=== PATIENT | female | born 1935 | race Caucasian/White ===

== ENCOUNTER 2019-02-22 11:56 | Outpatient (CLI) | payer MEDICARE, OTHER, SELFPAY ==
--- NOTE | 2019-02-22 12:12 | XR_ITS ---
WS: [id number] KNEE LEFT TECHNIQUE: 3 views of the left knee CLINICAL INFORMATION: LEFT KNEE PAIN COMPARISON: None. FINDINGS: Normal anatomic alignment. Chondrocalcinosis. Normal patella. No acute fractures. XR/XR knee LT 3V* [id number] IMPRESSION: No acute fractures
== END 2019-02-22 11:57 | disposition home or self-care (01) ==
LOC: RAD 12:04
PROVIDERS: Family Provider Family Medicine; PCP Family Medicine; Visit Provider Family Medicine
DX: M25.562 Pain in left knee (principal)
CPT/HCPCS: 73562

== ENCOUNTER → 2019-03-06 15:15 | Outpatient (BNVA) | payer MEDICARE, OTHER, SELFPAY | PROVIDERS: Family Provider Family Medicine; PCP Family Medicine; Referring Provider Family Medicine; Visit Provider Orthopaedic Surgery | DX: M79.642 Pain in left hand (principal); M79.641 Pain in right hand | CPT/HCPCS: 73130 ==

== ENCOUNTER 2019-03-06 16:24 | Outpatient (CLI) | payer MEDICARE, OTHER, SELFPAY | END 2019-03-06 16:25 | disposition home or self-care (01) | LOC: SPT 16:25 | PROVIDERS: Family Provider Family Medicine; PCP Family Medicine; Visit Provider Orthopaedic Surgery | DX: M18.0 Bilateral primary osteoarthritis of first carpometacarpal joints (principal); M79.642 Pain in left hand; M79.643 Pain in unspecified hand | CPT/HCPCS: 73130; L3924 ==

== ENCOUNTER 2019-07-14 14:06 | Emergency (ER) | payer MEDICARE, OTHER, SELFPAY ==
[2019-07-14 14:18] VITALS: BP 156/94; PULSE 70; RESP 14; TEMP 36.9; O2SAT 99; BMI 30.7
--- NOTE | 2019-07-14 14:30 | ED_ITS ---
HPI - Fall General: Chief Complaint: Fall Stated Complaint: fall/hurts all over Time Seen by Provider: 07/14/19 14:24 History of Present Illness: HPI Narrative: Patient is an 84-year-old female comes to the ED after having a fall. Fall occurred just prior to arrival. Patient is currently on a blood thinner. Patient states she was in her shower and she bent over to unplug the drain in the shower and she fell forward and her head hit the faucet. She denies any loss of consciousness, nausea/vomiting, headache, numbness or weakness to extremities, vision changes. Patient says the right side of her head hit the faucet and that the right side feels a little tender after fall. Denies any bleeding or lacerations on the scalp. She does describe some mild right side cervical muscle pain. She took a Tylenol before arriving to the ED to help with pain. Patient currently does not want any pain medications. She just wanted her head to get checked and scanned to make sure she does not have any intracranial bleeding. Associated symptoms-after fall: Reports headache(s) (Right side of head feels little sore. Does not describe it as a headache.); Denies abdominal pain, chest pain, hematuria or neck pain Review of Systems Const: Denies: fever(s), chills or fatigue Eyes: Denies: change in vision or eye discomfort ENMT: Denies: throat pain, odynophagia, nasal discharge or nasal congestion Card: Denies: chest pain, palpitations, edema, swelling of feet/ankles, dyspnea on exertion or orthopnea Resp: Denies: dyspnea, productive cough or non-productive cough GI: Denies: abdominal pain, nausea, vomiting, diarrhea, constipation or hematochezia : Denies: flank pain, dysuria or hematuria Musc: Denies: neck pain, back pain or extremity swelling Skin/Breast: Denies: rash or new lesions Neuro: Reports: headache(s) (Right side of head feels little sore. Does not describe it as a headache.); Denies: numbness in extremities or weakness in extremities FOR[facility]LY [facility], [facility] ED PFSH: Medical History Episodic atrial fibrillation Essential (primary) hypertension Osteoarthritis of CMC joint of thumb Pulmonary embolism Trigger middle finger of left hand Surgical History History of hysterectomy Hx of cataract surgery Family History Mother Myocardial infarct Cancer Father Heart disease Brother Cancer Social History Smoking and tobacco status: former smoker Quit status (tobacco): has quit using tobacco Year quit tobacco: 1979 Alcohol intake: never Lives independently: Yes Household members: none Current occupational status: retired History of recent travel: No Current gender identity: Female Physical Exam Const: COMMON NORMALS: no acute distress, patient oriented x3 and alert GENERAL APPEARANCE: cooperative and comfortable HENMT: COMMON NORMALS: normocephalic HEAD & SCALP: normocephalic and scalp tenderness (right parietal side had mild tenderness.) MOUTH: Normal oral and palatal mucosa present THROAT: posterior oropharynx normal and uvula midline Eye: COMMON NORMALS: Equal, round and reactive pupils present, EOMs intact bilaterally and normal visual roberto by confrontation PUPIL: Yes Equal, round and reactive pupils present Neck/C-Spine: COMMON NORMALS: supple GENERAL: Yes normal visual inspection Resp: COMMON NORMALS: normal respiratory effort, No retractions, No use of accessory muscles and clear to auscultation bilaterally AUSCULTATION: clear to auscultation bilaterally Cardio: COMMON NORMALS: regular rate, S1 normal heart sound present, S2 normal heart sound present, No gallops present (Cardio), No clicks present (Cardio), No murmurs present (Cardio) and Peripheral pulses 2+ throughout RATE: regular rate RHYTHM: abnormal rhythm irregularly irregular HEART SOUNDS: S1 normal heart sound present and S2 normal heart sound present PERIPHERAL PULSES: Peripheral pulses 2+ throughout GI: COMMON NORMALS: Normal to inspection, nondistended, normoactive bowel sounds present, Soft to palpation, non-tender and no masses PALPATION: Yes Soft to palpation : COMMON NORMALS: Yes no CVA tenderness BLADDER/KIDNEY EXAM: Yes no CVA tenderness Back/Pelvis: COMMON NORMALS: no CVA tenderness Extremity: COMMON NORMALS: normal to inspection and no pedal edema Neuro: COMMON NORMALS: patient oriented x3, CN's II-XII intact bilaterally, mo ves all extremities, no focal motor deficits and no sensory deficits noted SENSORIUM/ORIENTATION: Yes alert SPEECH: speech normal SENSORY EXAM: Yes extremities MOTOR EXAM: 5/5 motor strength present throughout Skin: COMMON NORMALS: no rashes or lesions noted GENERAL SKIN EXAM: no rashes or lesions noted and dry skin Course Vital Signs: Vital signs: Vital Signs Temperature 98.4 F 07/14/19 14:18 Pulse Rate 67 07/14/19 15:32 Respiratory Rate 14 07/14/19 15:32 Blood Pressure 147/52 07/14/19 15:32 Pulse Oximetry 98 07/14/19 15:32 MDM - Fall MDM Narrative: Medical decision making narrative: pt is a 84 y/o female that comes to the ED after having a fall and hitting her head. Pt takes blood thinn er. Neuro exam was normal and no deficits seen. No visible laceration or trauma to head. CT of head showed no acute findings. Pt felt well and had no post fall symptoms. Pt discharged and told to follow up with PCP in 7-10 days. pt understood and agrees with plan. Imaging Data^: CT Head: Attestation: I personally reviewed and interpreted this imaging study as follows: Radiologist's impression: [address] [address] [address] Scan Report Signed Patient: Sana Murrell Unit #: [id number] : 1935 Age/Sex: 84 / F ADM Date: 07/14/19 Loc: ER Room/Bed: Attending Dr: Ordering Provider/Ordering MD: Yasmani Bautista Date of Service: 07/14/19 Procedure(s): CT head wo con* [id number] Accession Number(s): [id number] Report Number: [id number] PROCEDURE INFORMATION: Exam: CT Head Without Contrast Exam date and time: 07/14/2019 2:38 PM Age: 84 years old Clinical indication: Injury or trauma; Fall; Initial encounter; Blunt trauma (contusions or hematomas); Without loss of consciousness; Patient HX: PT on blood thinners fell in shower this am hitting R side of head on faucet denies loc; Additional info: Fell and hit head. Right side of head pain TECHNIQUE: Imaging protocol: Computed tomography of the head without contrast. Radiation optimization: All CT scans at this facility use at least one of these dose optimization techniques: automated exposure control; mA and/or kV adjustment per patient size (includes targeted exams where dose is matched to clinical indication); or iterative reconstruction. COMPARISON: CT head wo con* [id number] 04/09/2016 8:14 PM RADIATION DOSE METRICS: Total DLP: 901.8 mGy-cm FINDINGS: Brain: There is diffuse cerebral atrophy present, consistent with this patient's age. No evidence for large acute ischemic infarction. Please note acute ischemia can be occult by head CT. Ventricles: Normal. No ventriculomegaly. Bones/joints: Unremarkable. No acute fracture. Sinuses: Visualized sinuses are unremarkable. No fluid levels. Mastoid air cells: Visualized mastoid air cells are well aerated. Vasculature: Calcified plaque is present within the carotid siphons. Soft tissues: Unremarkable. CT/CT head wo con* [id number] IMPRESSION: There are senescent changes of the brain as described above. No evidence for large acute ischemic infarction or acute intracranial injury. Radiation Dose CTDIVOL = (mGy): DLP = 901.8 (mGy-cm) Dictated By: Erendira Howard MD Signed By: Erendira Howard MD Signed Date/Time: 07/14/191508 DD/ 06 Discharge Plan Discharge Patient Disposition: Home, Self-Care Clinical Impression: Fall as cause of accidental injury at home as place of occurrence Qualifiers: Encounter type: initial encounter Qualified Code(s): W19.XXXA - Unspecified fall, initial encounter Condition: Stable Prescriptions: No Action metoprolol succinate 100 mg tablet extended release 24 hr 100 mg PO DAILY RF: 0 trazodone 100 mg tablet 100 mg PO DAILY RF: 0 levothyroxine 75 mcg capsule 75 mcg PO DAILY RF: 0 cholecalciferol (vitamin D3) 1,000 unit capsule 1,000 unit PO DAILY RF: 0 ascorbic acid (vitamin C) 1,000 mg tablet 1 gm PO DAILY RF: 0 biotin 10,000 mcg capsule 10,000 mcg PO DAILY RF: 0 triamcinolone acetonide 0.025 % cream 1 applic TOPICAL BID PRN (Reason: UNKNOWN) RF: 0 albuterol sulfate [Ventolin HFA] 90 mcg/actuation HFA aerosol inhaler 2 puff INHALATION Q6H PRN (Reason: Shortness Of Breath) RF: 0 furosemide 80 mg tablet 40 mg PO DAILY RF: 0 potassium chloride 20 mEq tablet extended release 10 meq PO DAILY RF: 0 carisoprodol 350 mg tablet 175 mg PO TID PRN (Reason: muscle pain) RF: 0 docusate sodium [Stool Softener] 100 mg capsule 100 mg PO TID RF: 0 (DME) oxygen-air delivery systems Device See Rx Instructions .ROUTE .MEDSUPPLY Qty: 1 RF: 0 (DME) cmc brace Qty: 2 RF: 0 Xarelto 20 mg tablet 20 mg PO DAILY RF: 0 Discharge Orders: Discharge Order (Routine); Ordered 07/14/19 Ordered By: Yasmani Bautista Referrals: Yasmani Stout MD [Primary Care Provider] - Discharge Diet: Regular Discharge Activity: Resume usual activity Patient Instructions: Fall Prevention (ED) Activity Restrictions/Additional Instructions: Follow-up with your PCP in 7 to 10 days for reevaluation. You can take Tylenol for any pain. Return to ED valuation if symptoms worsen. Discharge Date/Time: 07/14/19 15:34 Coding Level of Care Code ED Concert Manager for Chg Fwd Exam Comprehensive
[2019-07-14 15:32] VITALS: BP 147/52; PULSE 67; RESP 14; O2SAT 98
== END 2019-07-14 15:34 | disposition home or self-care (01) ==
PROVIDERS: Emergency Provider Physician Assistant; Family Provider Family Medicine; PCP Family Medicine
DX: R51 Headache (principal); W18.2XXA Fall in (into) shower or empty bathtub, initial encounter; I48.91 Unspecified atrial fibrillation; I10 Essential (primary) hypertension; Z87.891 Personal history of nicotine dependence
CPT/HCPCS: 12345; 70450; 99281; 99283

== ENCOUNTER → 2019-07-30 15:50 | Outpatient (BNVA) | payer MEDICARE, OTHER, SELFPAY | PROVIDERS: Family Provider Family Medicine; PCP Family Medicine; Visit Provider Internal Medicine Cardiovascular Disease | DX: R06.02 Shortness of breath (principal); I35.0 Nonrheumatic aortic (valve) stenosis; I50.43 Acute on chronic combined systolic (congestive) and diastolic (congestive) heart failure; I48.0 Paroxysmal atrial fibrillation; R07.89 Other chest pain; I27.82 Chronic pulmonary embolism; R60.0 Localized edema; Z87.891 Personal history of nicotine dependence | CPT/HCPCS: 80048; 83880 ==

== ENCOUNTER 2019-08-08 10:12 | Outpatient (CLI) | payer MEDICARE, OTHER, SELFPAY ==
--- NOTE | 2019-08-08 10:26 | XRR_ITS ---
PROCEDURE INFORMATION: Exam: XR Left Foot Complete Exam date and time: 08/08/2019 10:34 AM Age: 84 years old Clinical indication: Pain; Patient HX: Hurt left ankle and foot when she fell. ; Additional info: Foot pain left TECHNIQUE: Imaging protocol: XR Left foot. Views: 3 or more views. COMPARISON: No relevant prior studies available. FINDINGS: Bones/joints: No acute bony injury or malalignment. Soft tissues: No radiopaque foreign body. Calcification at the Achilles tendon attachment site. XR/XR foot LT min 3V* [id number] IMPRESSION: No acute bony injury or malalignment.
--- NOTE | 2019-08-08 10:26 | XRR_ITS ---
PROCEDURE INFORMATION: Exam: XR Left Ankle Exam date and time: 08/08/2019 10:51 AM Age: 84 years old Clinical indication: Pain; Patient HX: Hurt left ankle and foot when she fell; Additional info: Ankle pain left TECHNIQUE: Imaging protocol: XR Left ankle. Views: 3 or more views. COMPARISON: No relevant prior studies available. FINDINGS: Bones/joints: No acute bony injury or malalignment. Soft tissues: No radiopaque foreign body. XR/XR ankle LT min 3V* [id number] IMPRESSION: No acute bony injury or malalignment.
--- NOTE | 2019-08-08 10:26 | XRR_ITS ---
PROCEDURE INFORMATION: Exam: XR Right Tibia and Fibula Exam date and time: 08/08/2019 10:27 AM Age: 84 years old Clinical indication: Lower leg; Patient HX: No known trauma to right leg. C/O pain; Additional info: Leg pain TECHNIQUE: Imaging protocol: XR Right tibia and fibula. Views: 2 views. COMPARISON: CR Knee 3 views, RIGHT* [id number] 01/25/2019 11:34 AM FINDINGS: Bones/joints: No acute bony injury or malalignment. Degenerative change. Soft tissues: No radiopaque foreign body. XR/XR tibia fibula RT 2V [id number] IMPRESSION: No acute bony injury or malalignment.
== END 2019-08-08 10:13 | disposition home or self-care (01) ==
LOC: RAD 10:22
PROVIDERS: PCP Family Medicine; Visit Provider Family Medicine
DX: M79.604 Pain in right leg (principal); M25.572 Pain in left ankle and joints of left foot; M79.672 Pain in left foot
CPT/HCPCS: 73590; 73610; 73630

== ENCOUNTER 2019-08-21 15:24 | Outpatient (CLI) | payer MEDICARE, OTHER, SELFPAY ==
--- NOTE | 2019-08-21 15:42 | USCV_ITS ---
Sana Murrell Age: 84 Gender: F : 1935 Exam Date: 08/21/2019 15:37 Ordering Phys: Josephine Rodgers MD ([email or web address]) Technologist: Aarti Angelo Exam Location: [facility] Indication: AV STENOSIS BP: / HR: 68 Rhythm: Sinus Technical Quality: Adequate MEASUREMENTS (Male / Female) Normal Values 2D ECHO LV Diastolic Diameter PLAX 4.2 cm 4.2 - 5.9 / 3.9 - 5.3 cm LV Systolic Diameter PLAX 1.8 cm LV Chamber Size 3.1 cm IVS Diastolic Thickness 1.1 cm 0.6 - 1.0 / 0.6 - 0.9 cm IVS Systolic Thickness 1.7 cm LVPW Diastolic Thickness 1.6 cm 0.6 - 1.0 / 0.6 - 0.9 cm LVPW Systolic Thickness 2.3 cm RV Chamber Size 3.1 cm LVOT Diameter 2.1 cm LV Ejection Fraction 2D Teich 86.8 % LV Ejection Fraction MOD 2C 56.2 % LV Ejection Fraction 2C AL 56.7 % LA Diameter 4.9 cm LA Width 3.9 cm LA Height 6.1 cm RA Width 3.3 cm RA Height 4.4 cm Aorta at Sinotubular Diameter 2.2 cm M-MODE LV Diastolic Diameter MM 5.2 cm 4.2 - 5.9 / 3.9 - 5.3 cm LV Systolic Diameter MM 4.2 cm LV Ejection Fraction MM Teich 40.1 % IVS Diastolic Thickness MM 0.8 cm 0.6 - 1.0 / 0.6 - 0.9 cm IVS Systolic Thickness MM 0.9 cm LVPW Diastolic Thickness MM 0.7 cm 0.6 - 1.0 / 0.6 - 0.9 cm LVPW Systolic Thickness MM 1.1 cm Aortic Annulus Diameter 2.7 cm LA Ao Ratio MM 1.8 MV E Point Septal Separation 0.3 cm DOPPLER AV Peak Velocity 126.0 cm/s LVOT Peak Velocity 98.0 cm/s AV Area Cont Eq vti 2.7 cm squared AV Area Cont Eq pk 2.6 cm squared MV Area PHT 4.0 cm squared Mitral E to A Ratio 1.9 MV E' Velocity 20.0 cm/s Mitral E to MV E' Ratio 5.9 Mitral E to LV E' Lateral Ratio 5.8 Mitral E to LV E' Septal Ratio 6.0 TR Peak Velocity 244.0 cm/s TR Peak Gradient 23.8 mmHg TR Mean Velocity 274.8 cm/s TR Mean Gradient 34.4 mmHg TR Velocity Time Integral 120.2 cm TV Peak E Velocity 112.0 cm/s Right Atrial Pressure 3.0 mmHg Pulmonary Artery Systolic Pressu 26.8 mmHg PV Peak Velocity 74.0 cm/s RV Acceleration Time 0.2 s RV Ejection Time 0.4 s RV AcT/ET 0.5 FINDINGS Left Ventricle Normal left ventricular size and systolic function, EF 60 %. No significant wall motion normalities Right Ventricle Mildly increased right ventricular size. Normal right ventricular systolic function. Right Atrium Moderately increased right atrial size. Left Atrium Moderately increased left atrial size. Mitral Valve Thickened mitral valve. Mild mitral valve regurgitation. Aortic Valve Thickened aortic valve. Tricuspid Valve [id number] tricuspid valve regurgitation. Pulmonic Valve No gross abnormalities noted Pericardium No pericardial effusion. Aorta Plaque seen in the ascending aorta. CONCLUSIONS Normal left ventricular size and systolic function, EF 60 %. No significant wall motion normalities. Moderate biatrial enlargement. Thickened aortic and mitral valves. [id number] tricuspid valve regurgitation. Mild mitral valve regurgitation. There is no pericardial effusion. There are no intracardiac masses. Compared to study from 10/15/2017, there may not be a significant change Dr Josephine Rodgers MD [facility] (Electronically Signed) Final Date: 21 August 2019 18:53 S
== END 2019-08-21 15:25 | disposition home or self-care (01) ==
LOC: RAD 15:30
PROVIDERS: PCP Family Medicine; Visit Provider Internal Medicine Cardiovascular Disease
DX: I08.3 Combined rheumatic disorders of mitral, aortic and tricuspid valves (principal)
CPT/HCPCS: 93306

== ENCOUNTER → 2019-08-22 10:03 | Outpatient (BNVA) | payer MEDICARE, OTHER, SELFPAY | PROVIDERS: PCP Family Medicine; Visit Provider Internal Medicine Rheumatology | DX: M19.90 Unspecified osteoarthritis, unspecified site (principal); Z79.899 Other long term (current) drug therapy; Z11.59 Encounter for screening for other viral diseases; Z11.1 Encounter for screening for respiratory tuberculosis; I27.82 Chronic pulmonary embolism; I48.0 Paroxysmal atrial fibrillation; I50.32 Chronic diastolic (congestive) heart failure; Z72.89 Other problems related to lifestyle; Z87.891 Personal history of nicotine dependence; Z79.01 Long term (current) use of anticoagulants | CPT/HCPCS: 36415; 80076; 82306; 82565; 85025; 85651; 86140; 86480; 86704; 86803; 87340; 99204 ==

== ENCOUNTER 2019-08-23 14:01 | Outpatient (CLI) | payer MEDICARE, OTHER, SELFPAY ==
--- NOTE | 2019-08-23 14:08 | XR_ITS ---
WS: [id number] HAND LEFT TECHNIQUE: 3 views of the left hand CLINICAL INFORMATION: inflammatory arthritis COMPARISON: None. FINDINGS: Normal metacarpals. Normal MCP joint. Metacarpal heads are normal in appearance. Normal PIP and DIP j oints. No evidence of acute fracture or dislocation. Radiocarpal joint: Normal. Carpal bones: Normal. XR/XR hand LT min 3V* [id number] IMPRESSION: Normal left hand.
--- NOTE | 2019-08-23 14:08 | XR_ITS ---
WS: [id number] FOOT LEFT TECHNIQUE: 3 views of the left foot CLINICAL INFORMATION: inflammatory arthritis COMPARISON: None. FINDINGS: No evidence of acute fracture or dislocation. Normal tarsal metatarsal alignment. Normal calcaneus. N ormal visualized talar dome. No acute findings. XR/XR foot LT min 3V* [id number] IMPRESSION: Normal left foot.
--- NOTE | 2019-08-23 14:08 | XR_ITS ---
WS: [id number] FOOT RIGHT TECHNIQUE: 3 views of the right foot CLINICAL INFORMATION: inflammatory arthritis COMPARISON: None. FINDINGS: No evidence of acute fracture or dislocation. Normal tarsal metatarsal alignment. Normal calcaneus. N ormal visualized talar dome. No acute findings. XR/XR foot RT min 3V* [id number] IMPRESSION: Normal right foot.
--- NOTE | 2019-08-23 14:08 | XR_ITS ---
WS: [id number] HAND RIGHT TECHNIQUE: 3 views of the right hand CLINICAL INFORMATION: inflammatory arthritis COMPARISON: None. FINDINGS: Normal metacarpals. Normal MCP joint. Metacarpal heads are normal in appearance. Normal PIP and DIP j oints. No evidence of acute fracture or dislocation. Radiocarpal joint: Normal. Carpal bones: Normal. XR/XR hand RT min 3V* [id number] IMPRESSION: Normal right hand.
--- NOTE | 2019-08-23 14:08 | XR_ITS ---
WS: [id number] PROCEDURE: XR chest 2V* [id number] CLINICAL INFORMATION: inflammatory arthritis COMPARISON: FINDINGS: Heart: Cardiomegaly. Aortic calcification. Lungs: Moderate chronic emphysematous changes. No acute pulmonary infiltrates. Calcified granuloma ri ght midlung. Subsegmental atelectasis right lower lobe unchanged. Bones: Normal visualized bony structures. XR/XR chest 2V* [id number] IMPRESSION: 1. Stable cardiomegaly. Aortic calcification. 2. Chronic emphysematous changes. No acute pulmonary infiltrates.
== END 2019-08-23 14:02 | disposition home or self-care (01) ==
LOC: RADWPI 14:05
PROVIDERS: Family Provider Family Medicine; PCP Family Medicine; Visit Provider Internal Medicine Rheumatology
DX: M19.90 Unspecified osteoarthritis, unspecified site (principal); I51.7 Cardiomegaly; I70.0 Atherosclerosis of aorta; J43.9 Emphysema, unspecified
CPT/HCPCS: 71046; 73130; 73630

== ENCOUNTER → 2019-09-26 13:27 | Outpatient (BNVA) | payer MEDICARE, OTHER, SELFPAY | PROVIDERS: Family Provider Family Medicine; PCP Family Medicine; Visit Provider Internal Medicine Rheumatology | DX: M06.041 Rheumatoid arthritis without rheumatoid factor, right hand (principal); Z79.899 Other long term (current) drug therapy; M06.042 Rheumatoid arthritis without rheumatoid factor, left hand; M19.90 Unspecified osteoarthritis, unspecified site; J40 Bronchitis, not specified as acute or chronic; Z87.891 Personal history of nicotine dependence; Z79.52 Long term (current) use of systemic steroids | CPT/HCPCS: 99214 ==

== ENCOUNTER → 2019-11-21 09:41 | Outpatient (BNVA) | payer MEDICARE, OTHER, SELFPAY | PROVIDERS: Family Provider Family Medicine; PCP Family Medicine; Visit Provider Internal Medicine Rheumatology | DX: M06.041 Rheumatoid arthritis without rheumatoid factor, right hand (principal); Z79.899 Other long term (current) drug therapy; Z23 Encounter for immunization; M06.042 Rheumatoid arthritis without rheumatoid factor, left hand; M18.9 Osteoarthritis of first carpometacarpal joint, unspecified; M65.332 Trigger finger, left middle finger | CPT/HCPCS: 90471; 90686; 99214 ==

== ENCOUNTER → 2020-03-02 09:54 | Outpatient (BNVA) | payer MEDICARE, OTHER, SELFPAY | PROVIDERS: Family Provider Family Medicine; PCP Family Medicine; Visit Provider Internal Medicine Rheumatology | DX: M06.041 Rheumatoid arthritis without rheumatoid factor, right hand (principal); M06.042 Rheumatoid arthritis without rheumatoid factor, left hand; Z79.899 Other long term (current) drug therapy; M18.9 Osteoarthritis of first carpometacarpal joint, unspecified; Z87.891 Personal history of nicotine dependence; M19.90 Unspecified osteoarthritis, unspecified site; M45.9 Ankylosing spondylitis of unspecified sites in spine | CPT/HCPCS: 36415; 72170; 80076; 82565; 85025; 85651; 86140; 86812; 99214 ==

== ENCOUNTER 2020-03-02 11:32 | Outpatient (CLI) | payer MEDICARE, OTHER, SELFPAY ==
--- NOTE | 2020-03-02 11:37 | XRR_ITS ---
PROCEDURE INFORMATION: Exam: XR Pelvis Exam date and time: 03/02/2020 11:54 AM Age: 85 years old Clinical indication: Condition or disease; Other: Rheumatoid arthritis without rheumatoid factor, right hand; Patient HX: RT hip pain x 2years previous pelvic FX; Additional info: M06.041 - rheumatoid arthritis without rheumatoid factor, right hand TECHNIQUE: Imaging protocol: XR pelvis. Views: 1 or 2 view. COMPARISON: CT Chest/Abdomen/Pelvis w IV* 05/15/2017 5:22 PM FINDINGS: Bones/joints: Osteopenia. Degenerative change, without marginal erosions to suggest an acute erosive arthropathy. Asymmetric right sacroiliac joint sclerosis. Soft tissues: Skin folds. Injection granulomata. Other: Vascular calcification. Prominent stool. XR/XR pelvis 1-2V* [id number] IMPRESSION: Degenerative change, without marginal erosions to suggest an acute erosive arthropathy.
[2020-03-02 12:38] LABS: Basophils % 0.3 %; Eosinophils # 0.1 10^3/uL (0.0-0.8); Eosinophils % 1.3 %; Hematocrit 36.5 % (37.0-47.0); Hemoglobin 11.8 g/dL (11.5-15.3); Lymphocytes # 2.2 10^3/uL (0.8-4.8); Lymphocytes % 30.3 %; Mean Corpuscular HGB Conc 32.3 g/dL (30.0-36.0); Mean Corpuscular Hemoglobin 33.4 pg (28.0-34.0); Mean Corpuscular Volume 103.4 fL (81-99); Mean Platelet Volume 9.8 fL (7.4-10.4); Monocytes # 0.5 10^3/uL (0.2-0.9); Monocytes % 7.3 %; Neutrophils # 4.33 10^3/uL (1.8-7.7); Neutrophils % 60.5 %; Nucleated Red Blood Cells % 0 %; Platelet Count 195 10^3/cmm (130-400); Red Blood Count 3.53 10^6/uL (4.1-5.3); Red Cell Distribution Width 14.6 % (12.1-15.1); White Blood Count 7.2 10^3/uL (4.0-10.0)
[2020-03-02 13:03] LABS: Alanine Aminotransferase 11 U/L (0-33); Albumin Level 4.1 g/dL (3.5-5.2); Alkaline Phosphatase 74 IU/L (35-105); Aspartate Amino Transferase 15 U/L (0-32); C Reactive Protein 1.5 mg/L (0.0-4.9); Globulin 3.1 g/dL (1.3-4.6); Total Bilirubin 0.5 mg/dL (0.15-1.2); Total Protein 7.2 g/dL (6.6-8.7)
[2020-03-02 13:31] LABS: Erythrocyte Sedimentation Rate 29 mm/hr (0-15)
[2020-03-09 20:49] LABS: HLA-B27 NEGATIVE (NEGATIVE)
== END 2020-03-02 11:33 | disposition home or self-care (01) ==
LOC: RAD 11:35
PROVIDERS: Family Provider Family Medicine; PCP Family Medicine; Visit Provider Internal Medicine Rheumatology
DX: M06.041 Rheumatoid arthritis without rheumatoid factor, right hand (principal); M06.042 Rheumatoid arthritis without rheumatoid factor, left hand; M19.90 Unspecified osteoarthritis, unspecified site; Z79.899 Other long term (current) drug therapy
CPT/HCPCS: 36415; 72170; 80076; 82565; 85025; 85651; 86140; 86812

== ENCOUNTER → 2020-05-21 11:40 | Outpatient (BNVA) | payer MEDICARE, OTHER, SELFPAY | PROVIDERS: Family Provider Family Medicine; PCP Family Medicine; Visit Provider Internal Medicine Cardiovascular Disease | DX: I50.33 Acute on chronic diastolic (congestive) heart failure (principal); R06.02 Shortness of breath; R07.89 Other chest pain; I48.0 Paroxysmal atrial fibrillation; I27.82 Chronic pulmonary embolism | CPT/HCPCS: 80048; 83880 ==

== ENCOUNTER 2020-05-29 09:44 | Emergency (ER) | payer MEDICARE, OTHER, SELFPAY ==
[2020-05-29 09:52] VITALS: BP 144/62; PULSE 66; RESP 16; TEMP 36.5; O2SAT 100; BMI 27.3
--- NOTE | 2020-05-29 09:54 | ED_ITS ---
HPI - SOB/Dyspnea General: Chief Complaint: Shortness of Breath/Dyspnea Stated Complaint: SOB, fatigue Time Seen by Provider: 05/29/20 09:51 History of Present Illness: HPI Narrative: 85-year-old female presents to the emergency room with complaint of fatigue shortness of breath with exertion the last several days. Several years ago she had a PE she is getting burning sensation in her chest intermittently she feels like she has a PE again she had been on Xarelto 20 mg daily and recently decrease it to 10 mg daily MD elicited complaint: shortness of breath and pain with inspiration Pertinent past history: congestive heart failure, PE and DVT Onset (ago): day(s) Context: occurred during exertion Timing: constant Severity: moderate Exacerbating factors: exertion, movement and talking Relieving factors: rest Known history of: congestive heart failure, PE and DVT Associated symptoms: Reports chest pain; Deny abdominal pain, chest congestion, cough, diaphoresis, dizziness, extremity pain, fever(s), hemoptysis, lightheadedness, myalgias, nausea, orthopnea, palpitations, paresthesias, polydipsia, polyuria, rash, sense of impending doom, syncope or vomiting Treatment prior to arrival: none Review of Systems Const: Denies: fever(s) or diaphoresis ENMT: Denies: throat pain, ear or mastoid pain, nasal discharge or nasal congestion Card: Reports: chest pain; Denies: palpitations, lightheadedness, syncope or orthopnea Resp: Denies: hemoptysis or chest congestion GI: Denies: abdominal pain, nausea or vomiting : Denies: flank pain, difficulty voiding, dysuria, urinary frequency or urinary urgency Musc: Denies: extremity pain Skin/Breast: Denies: rash or pruritus Neuro: Denies: dizziness Endo: Denies: polyuria or polydipsia PFSH ED PFSH: Medical History Atrial fibrillation Atypical chest pain Bronchitis Chronic diastolic heart failure Chronic diastolic heart failure secondary to coronary artery disease Encounter for screening for other viral diseases Episodic atrial fibrillation Essential (primary) hypertension High risk medication use Immunization counseling Inflammatory arthritis Leg edema Osteoarthritis of both hands Osteoarthritis of CMC joint of thumb Pulmonary embolism Pulmonary embolism Seronegative rheumatoid arthritis of both hands SOB (shortness of breath) Trigger middle finger of left hand Surgical History History of hysterectomy Hx of cataract surgery Family History Mother Myocardial infarct Cancer CAD (coronary artery disease) Father Heart disease CAD (coronary artery disease) Brother Cancer Family/Other Lung disease Denies family history of Diabetes Clotting disorder Dementia Chronic kidney disease (CKD) Suicide Anesthesia complication Bleeding disorder Stroke Social History Smoking and tobacco status: former smoker Quit status (tobacco): has quit using tobacco Year quit tobacco: 1979 Alcohol intake: never Lives independently: Yes Household members: none Current occupational status: retired History of recent travel: No Current gender identity: Female Physical Exam Const: COMMON NORMALS: no acute distress GENERAL APPEARANCE: cooperative and comfortable ORIENTATION/CONSCIOUSNESS: Yes awake, Yes oriented to person, Yes oriented to place and Yes oriented to time HENMT: COMMON NORMALS: normocephalic, atraumatic and hearing grossly normal bilaterally HEAD & SCALP: normocephalic and atraumatic Neck/C-Spine: COMMON NORMALS: no JVD Resp: COMMON NORMALS: normal respiratory effort, No retractions, No use of accessory muscles and clear to auscultation bilaterally AUSCULTATION: clear to auscultation bilaterally Cardio: COMMON NORMALS: no JVD, regular rate, regular rhythm and No murmurs present (Cardio) RATE: regular rate RHYTHM: regular rhythm GI: COMMON NORMALS: Soft to palpation and No hepatosplenomegaly present AUSCULTATION: Yes normoactive bowel sounds PALPATION: Yes Soft to palpation, No Tenderness to palpation present (GI), No Guarding due to palpation present (GI) and Yes No hepatosplenomegaly present Extremity: COMMON NORMALS: normal to inspection, capillary refill normal, no clubbing, cyanosis or edema, no calf tenderness and no pedal edema Neuro: SENSORIUM/ORIENTATION: Yes oriented to person, Yes oriented to place and Yes oriented to time Skin: COMMON NORMALS: no rashes or lesions noted GENERAL SKIN EXAM: no rashes or lesions noted Course Vital Signs: Vital signs: Vital Signs Temperature 97.7 F 05/29/20 09:52 Pulse Rate 59 L 05/29/20 11:57 Respiratory Rate 16 05/29/20 15:14 Blood Pressure 145/57 05/29/20 11:57 Pulse Oximetry 96 05/29/20 12:53 MDM - SOB/Dyspnea 2 MDM Narrative: Medical decision making narrative: Chest x-ray is unremarkable. D-dimer is normal. She is on Xarelto and is still has been taking regular troponins are negative. We gave her some Lasix while she was down here that did help her actually. She was recently started on spironolactone by her office mover. Ambulatory oxygen testing shows the patient does qualify for oxygen. Organ to go ahead and get her started on 3 L/min, to bump up her Lasix to 120 daily continue her Xarelto and recheck with her primary care doctor early next week return if has problems. Lab Data: Labs: Lab Results 05/29/20 05/29/20 05/29/20 Range/Units 10:05 10:05 10:05 WBC 6.6 (4.0-10.0) 10^3/ uL RBC 3.53 L (4.1-5.3) 10^6/u L Hgb 11.5 (11.5-15.3) g/dL Hct 34.6 L (37.0-47.0) % MCV 98.0 (81-99) fL MCH 32.6 (28.0-34.0) pg MCHC 33.2 (30.0-36.0) g/dL RDW 14.0 (12.1-15.1) % Plt Count 234 (130-400) 10^3/c mm MPV 9.8 (7.4-10.4) fL Neut % (Auto) 56.7 % Lymph % (Auto) 31.7 % [place] % (Auto) 9.4 % Eos % (Auto) 1.5 % Baso % (Auto) 0.5 % Neut # (Auto) 3.76 (1.8-7.7) 10^3/u L Lymph # (Auto) 2.1 (0.8-4.8) 10^3/u L [place] # (Auto) 0.6 (0.2-0.9) 10^3/u L Eos # (Auto) 0.1 (0.0-0.8) 10^3/u L Baso # (Auto) 0.0 (0.0-0.1) 10^3/u L Nucleated RBC % (a uto) 0 % Nucleated RBCs # 0.0 /100WBC D-Dimer (0-0.59) ug/mIFE U Sodium 134 L (136-145) mmol/L Potassium 4.2 (3.5-5.1) mmol/L Chloride 98 (98-107) mmol/L Carbon Dioxide 27 (22-29) mmol/L Anion Gap 13.2 (5-19) BUN 15 (8-23) mg/dL Creatinine 0.9 (0.5-0.9) mg/dL GFR Calculation Not Reportable Glucose 94 (65-115) mg/dL Calculated Osmolal ity 279 L (285-295) mOsm/k g Calcium 9.0 (8.5-10.5) mg/dL Total Bilirubin 0.3 (0.15-1.2) mg/dL AST 17 (0-32) U/L ALT 11 (0-33) U/L Alkaline Phosphata se 71 (35-105) IU/L Troponin T Baselin e 9 (0-10) ng/L Troponin T 120 Min [place] (0-10) ng/L Delta Troponin T (0-10) ABS# Total Protein 7.0 (6.6-8.7) g/dL Albumin 4.1 (3.5-5.2) g/dL Globulin 2.9 (1.3-4.6) g/dL 05/29/20 05/29/20 Range/Units 11:23 12:20 WBC (4.0-10.0) 10^3/ uL RBC (4.1-5.3) 10^6/u L Hgb (11.5-15.3) g/dL Hct (37.0-47.0) % MCV (81-99) fL MCH (28.0-34.0) pg MCHC (30.0-36.0) g/dL RDW (12.1-15.1) % Plt Count (130-400) 10^3/c mm MPV (7.4-10.4) fL Neut % (Auto) % Lymph % (Auto) % [place] % (Auto) % Eos % (Auto) % Baso % (Auto) % Neut # (Auto) (1.8-7.7) 10^3/u L Lymph # (Auto) (0.8-4.8) 10^3/u L [place] # (Auto) (0.2-0.9) 10^3/u L Eos # (Auto) (0.0-0.8) 10^3/u L Baso # (Auto) (0.0-0.1) 10^3/u L Nucleated RBC % (a uto) % Nucleated RBCs # /100WBC D-Dimer 0.49 (0-0.59) ug/mIFE U Sodium (136-145) mmol/L Potassium (3.5-5.1) mmol/L Chloride (98-107) mmol/L Carbon Dioxide (22-29) mmol/L Anion Gap (5-19) BUN (8-23) mg/dL Creatinine (0.5-0.9) mg/dL GFR Calculation Glucose (65-115) mg/dL Calculated Osmolal ity (285-295) mOsm/k g Calcium (8.5-10.5) mg/dL Total Bilirubin (0.15-1.2) mg/dL AST (0-32) U/L ALT (0-33) U/L Alkaline Phosphata se (35-105) IU/L Troponin T Baselin e (0-10) ng/L Troponin T 120 Min [place] 7.88 (0-10) ng/L Delta Troponin T -1.12 L (0-10) ABS# Total Protein (6.6-8.7) g/dL Albumin (3.5-5.2) g/dL Globulin (1.3-4.6) g/dL Discharge Plan Discharge Patient Disposition: Home Clinical Impression: Chronic diastolic heart failure secondary to coronary artery disease, History of pulmonary embolism Condition: Stable Prescriptions: Changed furosemide 80 mg tablet 120 mg PO QAM Qty: 0 RF: 0 No Action metoprolol succinate 100 mg tablet extended release 24 hr 100 mg PO QAM RF: 0 trazodone 100 mg tablet 100 mg PO BEDTIME RF: 0 levothyroxine 75 mcg capsule 75 mcg PO QAM RF: 0 biotin 10,000 mcg capsule 10,000 mcg PO QAM RF: 0 acetaminophen [Tylenol Extra Strength] 500 mg tablet 500 mg PO BEDTIME RF: 0 rivaroxaban 10 mg tablet 10 mg PO BEDTIME RF: 0 pantoprazole 40 mg tablet,delayed release (DR/EC) 40 mg PO QAM RF: 0 docusate sodium [Stool Softener] 100 mg capsule 300 mg PO PRN RF: 0 (DME) oxygen-air delivery systems Device See Rx Instructions .ROUTE .MEDSUPPLY Qty: 1 RF: 0 prednisone 10 mg tablet See Rx Instructions PO .COMPLEX PRN (Reason: joint pain) Qty: 30 RF: 1 Vitamin D3 50 mcg (2,000 unit) Capsule 4,000 unit PO QPM RF: 0 Dago Mag Zinc Plus D3 333 mg-133 unit -133 mg-5 mg Tablet 2 tab PO QPM RF: 0 sulfasalazine 500 mg tablet 1,000 mg PO BID RF: 0 potassium chloride 10 mEq tablet extended release 10 meq PO QAM RF: 0 spironolactone 25 mg tablet 25 mg PO QAM RF: 0 folic acid 1 mg tablet 1 mg PO QAM RF: 0 Discharge Orders: Discharge ED (Routine); Ordered 05/29/20 Ordered By: Nelson Bower Other Ambulatory Orders: DME: Oxygen (Order) Location: None Selected Ordered By: Nelson Bower Referrals: Yasmani Stout MD [Primary Care Provider] - Discharge Diet: Usual diet Discharge Activity: Limit activity as instructed Patient Instructions: Opioid Safety Activity Restrictions/Additional Instructions: Qualified for oxygen on testing today in the emergency room. Respiratory therapy will will help make arrangements for that today. We recommend you increase your Lasix 120mg daily for the next 3 days then return to 80 mg daily. Follow-up with Dr. Rodgers or Dr. Stout within the week. 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
[2020-05-29 10:02] VITALS: PULSE 66
--- NOTE | 2020-05-29 10:02 | ECG_ITS ---
[facility] Test Date: 2020-05-29 Pat Name: Sana Murrell Department: Room: Gender: Female [employer]: : 1935 Requested By: Nelson Hilton Order Number: [id number] Lalit MD: Josephine Rodgers M.D. Measurements Intervals [place] Rate: 66 P: ND: QRS: 54 QRSD: 85 T: 30 QT: 406 QTc: 426 Interpretive Statements ATRIAL FIBRILLATION ABNORMAL RHYTHM ECG Compared to ECG 10/22/2017 20:42:02 Sinus rhythm no longer present First degree AV block no longer present Electronically Signed On 05-29-2020 20:58:51 CDT by Josephine Rodgers M.D. [id number]
--- NOTE | 2020-05-29 10:02 | XR_ITS ---
WS: [id number] Portable AP upright chest, 05/29/2020 Clinical Data: dyspnea/cough Comparison: PA and lateral chest, 08/23/2019. Findings: No nodules, masses or effusions are seen. The heart is enlarged. The pulmonary vascularity is not increased. No pneumonia or pneumothorax is seen. The aortic arch shows mild calcification. XR/XR chest 1V portable [id number] Impression: Atherosclerosis and cardiomegaly.
[2020-05-29 10:17] LABS: Basophils % 0.5 %; Eosinophils # 0.1 10^3/uL (0.0-0.8); Eosinophils % 1.5 %; Hematocrit 34.6 % (37.0-47.0); Hemoglobin 11.5 g/dL (11.5-15.3); Lymphocytes # 2.1 10^3/uL (0.8-4.8); Lymphocytes % 31.7 %; Mean Corpuscular HGB Conc 33.2 g/dL (30.0-36.0); Mean Corpuscular Hemoglobin 32.6 pg (28.0-34.0); Mean Platelet Volume 9.8 fL (7.4-10.4); Monocytes # 0.6 10^3/uL (0.2-0.9); Monocytes % 9.4 %; Neutrophils # 3.76 10^3/uL (1.8-7.7); Neutrophils % 56.7 %; Nucleated Red Blood Cells % 0 %; Platelet Count 234 10^3/cmm (130-400); Red Blood Count 3.53 10^6/uL (4.1-5.3); White Blood Count 6.6 10^3/uL (4.0-10.0)
[2020-05-29 10:45] LABS: Alanine Aminotransferase 11 U/L (0-33); Albumin Level 4.1 g/dL (3.5-5.2); Alkaline Phosphatase 71 IU/L (35-105); Anion Gap 13.2 (5-19); Aspartate Amino Transferase 17 U/L (0-32); Blood Urea Nitrogen 15 mg/dL (8-23); Carbon Dioxide 27 mmol/L (22-29); Chloride 98 mmol/L (98-107); Globulin 2.9 g/dL (1.3-4.6); Glucose 94 mg/dL (65-115); Osmolality Calculated 279 mOsm/kg (285-295); Potassium 4.2 mmol/L (3.5-5.1); Sodium 134 mmol/L (136-145); Total Bilirubin 0.3 mg/dL (0.15-1.2)
[2020-05-29 10:48] LABS: Troponin(5th) Baseline 9 ng/L (0-10)
[2020-05-29] MEDS: FUROsemide 10 mg/mL SDV 4mL 40 MG IVP (11:26)
[2020-05-29 11:42] LABS: D Dimer 0.49 ug/mIFEU (0-0.59)
[2020-05-29 11:57] VITALS: BP 145/57; PULSE 59; RESP 19; O2SAT 99
[2020-05-29 12:00] VITALS: RESP 16
[2020-05-29 12:52] LABS: Troponin 5 2HR 7.88 ng/L (0-10)
[2020-05-29 12:53] VITALS: O2SAT 80; O2SAT 94; O2SAT 96
[2020-05-29 12:55] LABS: Troponin 5 2HR Delta -1.12 ABS# (0-10)
--- NOTE | 2020-05-29 14:19 | DCPLANNER ---
marketing communications manager was asked to arrange for home O2 for patient. Patient stated that she currently has services with [email or web address] for oxygen. marketing communications manager faxed patients information and prescription for oxygen to [email or web address] will bring oxygen to the ER for patient.
[2020-05-29 15:14] VITALS: RESP 16
== END 2020-05-29 15:46 | disposition home or self-care (01) ==
PROVIDERS: Emergency Provider Family Medicine; PCP Family Medicine
DX: I25.10 Atherosclerotic heart disease of native coronary artery without angina pectoris (principal); I11.0 Hypertensive heart disease with heart failure; I50.32 Chronic diastolic (congestive) heart failure; Z86.711 Personal history of pulmonary embolism; Z87.891 Personal history of nicotine dependence
CPT/HCPCS: 36415; 71045; 80053; 84484; 85025; 85378; 93005; 96374; 99284; J1940

== ENCOUNTER 2020-06-29 20:00 | Outpatient (CLI) | payer MEDICARE, OTHER, SELFPAY | END 2020-06-29 20:01 | disposition home or self-care (01) | LOC: SLEEP 06-30 08:45 | PROVIDERS: PCP Family Medicine; Visit Provider Family Medicine | DX: G47.33 Obstructive sleep apnea (adult) (pediatric) (principal) | CPT/HCPCS: 95810 ==

== ENCOUNTER → 2020-06-30 09:22 | Outpatient (BNVA) | payer MEDICARE, OTHER, SELFPAY | PROVIDERS: PCP Family Medicine; Visit Provider Internal Medicine Cardiovascular Disease | DX: R07.89 Other chest pain (principal); I48.0 Paroxysmal atrial fibrillation; I50.32 Chronic diastolic (congestive) heart failure; I25.10 Atherosclerotic heart disease of native coronary artery without angina pectoris; R06.02 Shortness of breath; I27.82 Chronic pulmonary embolism; R60.0 Localized edema | CPT/HCPCS: 80048; 83880 ==

== ENCOUNTER → 2020-07-07 09:56 | Outpatient (BNVA) | payer MEDICARE, OTHER, SELFPAY | PROVIDERS: PCP Family Medicine; Visit Provider Internal Medicine Rheumatology | DX: M19.90 Unspecified osteoarthritis, unspecified site (principal); M06.041 Rheumatoid arthritis without rheumatoid factor, right hand; M06.042 Rheumatoid arthritis without rheumatoid factor, left hand; Z79.899 Other long term (current) drug therapy; M79.7 Fibromyalgia; G62.9 Polyneuropathy, unspecified; Z87.891 Personal history of nicotine dependence | CPT/HCPCS: 99214 ==

== ENCOUNTER → 2020-07-09 09:06 | Outpatient (BNVA) | payer MEDICARE, OTHER, SELFPAY | PROVIDERS: PCP Family Medicine; Visit Provider Internal Medicine Cardiovascular Disease | DX: R06.02 Shortness of breath (principal); R07.89 Other chest pain; I50.32 Chronic diastolic (congestive) heart failure; I25.10 Atherosclerotic heart disease of native coronary artery without angina pectoris; I48.0 Paroxysmal atrial fibrillation; R60.0 Localized edema | CPT/HCPCS: 80048; 83880 ==

== ENCOUNTER 2020-07-15 12:31 | Outpatient (CLI) | payer MEDICARE, OTHER, SELFPAY ==
--- NOTE | 2020-07-15 12:43 | USCV_ITS ---
Sana Murrell Age: 85 Gender: F : 1935 Exam Date: 07/15/2020 13:06 Ordering Phys: Yasmani Stout MD Technologist: ADRYAN Exam Location: [facility] [place] Indication: BP: 130 / 65 HR: 78 Rhythm: Sinus Technical Quality: Adequate MEASUREMENTS (Male / Female) Normal Values 2D ECHO LV Diastolic Diameter PLAX 3.7 cm 4.2 - 5.9 / 3.9 - 5.3 cm LV Systolic Diameter PLAX 2.5 cm IVS Diastolic Thickness 1.3 cm 0.6 - 1.0 / 0.6 - 0.9 cm IVS Systolic Thickness 1.6 cm LVPW Diastolic Thickness 1.3 cm 0.6 - 1.0 / 0.6 - 0.9 cm LVPW Systolic Thickness 1.3 cm RV Chamber Size 3.9 cm LVOT Diameter 2.0 cm LV Ejection Fraction 2D Teich 62.2 % LV Ejection Fraction MOD 2C 58.7 % LV Ejection Fraction 2C AL 61.1 % LA Diameter 4.2 cm LA Width 3.9 cm LA Height 6.1 cm RA Width 2.8 cm RA Height 4.8 cm Aorta at Sinotubular Diameter 2.4 cm M-MODE Aortic Annulus Diameter 2.3 cm LA Ao Ratio MM 1.9 DOPPLER AV Peak Velocity 99.0 cm/s LVOT Peak Velocity 90.0 cm/s AV Area Cont Eq vti 2.8 cm squared AV Area Cont Eq pk 2.9 cm squared TR Peak Velocity 379.8 cm/s TR Peak Gradient 57.7 mmHg TR Mean Velocity 280.2 cm/s TR Mean Gradient 39.0 mmHg TR Velocity Time Integral 107.7 cm TV Peak E Velocity 80.0 cm/s Right Atrial Pressure 3.0 mmHg Pulmonary Artery Systolic Pressu 60.7 mmHg PV Peak Velocity 89.0 cm/s RV Acceleration Time 0.1 s RV Ejection Time 0.3 s RV AcT/ET 0.3 FINDINGS Left Ventricle Normal left ventricular size. LV systolic function is normal with EF of 60-65%. No regional wall motion abnormalities. Right Ventricle The right ventricle is normal in size and function. Right Atrium The right atrium is dilated Left Atrium The left atrium is dilated Mitral Valve Structurally normal mitral valve without significant stenosis or prolapse. There is mild mitral regurgitation. Aortic Valve Structurally normal aortic valve without significant sclerosis or stenosis. There is no aortic regurgitation. Tricuspid Valve Structurally normal tricuspid valve without significant stenosi. Mild to moderate tricuspid regurgitation. RVSP is 25-30mmHg Pulmonic Valve Structurally normal pulmonic valve without significant stenosis. There is trace pulmonic regurgitation. Pericardium Normal pericardium without effusion. Aorta Normal ascending aorta dimension. CONCLUSIONS LV systolic function is normal with EF of 60-65% Biatrial enlargement Mild mitral regurgitation Mild to moderate tricuspid regurgitation Trace pulmonic regurgitation Compared to prior echocardiogram from 08/2019, no significant changes are noted Abhi Chu MD (Electronically Signed) Final Date: 21 July 2020 22:55 S
== END 2020-07-15 12:32 | disposition home or self-care (01) ==
LOC: RAD 12:32
PROVIDERS: PCP Family Medicine; Visit Provider Family Medicine
DX: I50.32 Chronic diastolic (congestive) heart failure (principal); I08.1 Rheumatic disorders of both mitral and tricuspid valves
CPT/HCPCS: 93306

== ENCOUNTER → 2020-08-27 15:22 | Outpatient (BNVA) | payer MEDICARE, OTHER, SELFPAY | PROVIDERS: PCP Family Medicine; Visit Provider Internal Medicine Cardiovascular Disease | DX: I50.32 Chronic diastolic (congestive) heart failure (principal); R06.02 Shortness of breath; I50.33 Acute on chronic diastolic (congestive) heart failure; R07.9 Chest pain, unspecified; I25.10 Atherosclerotic heart disease of native coronary artery without angina pectoris; I48.91 Unspecified atrial fibrillation | CPT/HCPCS: 80048; 83880 ==

== ENCOUNTER → 2020-09-10 08:54 | Outpatient (BNVA) | payer MEDICARE, OTHER, SELFPAY | PROVIDERS: PCP Family Medicine; Visit Provider Internal Medicine Cardiovascular Disease | DX: I25.10 Atherosclerotic heart disease of native coronary artery without angina pectoris (principal); I50.32 Chronic diastolic (congestive) heart failure | CPT/HCPCS: 80048; 83880 ==

== ENCOUNTER → 2020-10-12 09:07 | Outpatient (BNVA) | payer MEDICARE, OTHER, SELFPAY | PROVIDERS: PCP Family Medicine; Visit Provider Internal Medicine Cardiovascular Disease | DX: R60.0 Localized edema (principal); I50.32 Chronic diastolic (congestive) heart failure; R06.02 Shortness of breath; R07.89 Other chest pain; M06.041 Rheumatoid arthritis without rheumatoid factor, right hand; M06.042 Rheumatoid arthritis without rheumatoid factor, left hand; I25.10 Atherosclerotic heart disease of native coronary artery without angina pectoris; Z79.899 Other long term (current) drug therapy | CPT/HCPCS: 80048; 80076; 83880; 85025; 86140 ==

== ENCOUNTER → 2020-10-15 14:23 | Outpatient (BNVA) | payer MEDICARE, OTHER, SELFPAY | PROVIDERS: PCP Family Medicine; Visit Provider Internal Medicine Rheumatology | DX: M19.90 Unspecified osteoarthritis, unspecified site (principal); M06.041 Rheumatoid arthritis without rheumatoid factor, right hand; M06.042 Rheumatoid arthritis without rheumatoid factor, left hand; Z79.899 Other long term (current) drug therapy; M79.7 Fibromyalgia; G62.9 Polyneuropathy, unspecified; Z86.711 Personal history of pulmonary embolism; Z87.891 Personal history of nicotine dependence | CPT/HCPCS: 99214 ==

== ENCOUNTER 2020-10-16 12:02 | Outpatient (CLI) | payer MEDICARE, OTHER, SELFPAY ==
--- NOTE | 2020-10-16 12:00 | USCV_ITS ---
Sana Murrell Age: 85 Gender: F : 1935 Exam Date: 10/16/2020 12:19 Ordering Phys: Seng Dailey MD Technologist: Lilli Franco Exam Location: [facility] [place] Indication: edema , leg pain PROCEDURES: The following venous structures were evaluated: common femoral vein, profunda vein, proximal portion of the greater saphenous vein, superficial femoral vein, and the popliteal vein. In addition, the posterior tibial veins were evaluated. FINDINGS: Normal 2-D Doppler and augmentation and compressibility throughout the lower extremity venous structures. Additional imaging through the proximal calf veins also reveals no thrombus. Limited evaluation of the greater saphenous vein is patent with no thrombus.. There is a right lower extremity Berumen's cyst noted. CONCLUSIONS No DVT bilateral lower extremities. Right popliteal fossa Berumen's cyst. Dr. Le Gonzales DO (Electronically Signed) Final Date: 16 October 2020 13:19 S
== END 2020-10-16 12:03 | disposition home or self-care (01) ==
LOC: RAD 12:07
PROVIDERS: PCP Family Medicine; Visit Provider Internal Medicine Rheumatology
DX: M79.669 Pain in unspecified lower leg (principal); Z86.711 Personal history of pulmonary embolism
CPT/HCPCS: 93970

== ENCOUNTER → 2021-08-12 12:05 | Outpatient (BNVA) | payer MEDICARE, OTHER, SELFPAY | PROVIDERS: PCP Family Medicine; Visit Provider Family Medicine | DX: R73.9 Hyperglycemia, unspecified (principal); R07.89 Other chest pain; Z51.81 Encounter for therapeutic drug level monitoring; I50.32 Chronic diastolic (congestive) heart failure; E03.9 Hypothyroidism, unspecified; Z86.711 Personal history of pulmonary embolism | CPT/HCPCS: 80048; 83036; 83880; 84439; 84443; 85025 ==

== ENCOUNTER → 2021-08-26 13:41 | Outpatient (BNVA) | payer MEDICARE, OTHER, SELFPAY | PROVIDERS: PCP Family Medicine; Visit Provider Internal Medicine Cardiovascular Disease | DX: R55 Syncope and collapse (principal); I48.91 Unspecified atrial fibrillation; I49.3 Ventricular premature depolarization | CPT/HCPCS: 93229 ==

== ENCOUNTER 2021-08-31 15:22 | Outpatient (CLI) | payer MEDICARE, OTHER, SELFPAY ==
[2021-08-31 16:19] LABS: Basophils % 0.2 %; Eosinophils # 0.1 10^3/uL (0.0-0.8); Eosinophils % 0.7 %; Hematocrit 38.3 % (37.0-47.0); Hemoglobin 12.4 g/dL (11.5-15.3); Lymphocytes # 1.4 10^3/uL (0.8-4.8); Mean Corpuscular HGB Conc 32.4 g/dL (30.0-36.0); Mean Corpuscular Hemoglobin 31.9 pg (28.0-34.0); Mean Corpuscular Volume 98.5 fl (81-99); Monocytes # 0.4 10^3/uL (0.2-0.9); Monocytes % 5.5 %; Neutrophils # 6.04 10^3/uL (1.8-7.7); Neutrophils % 75.4 %; Nucleated Red Blood Cells % 0 %; Platelet Count 205 10^3/cmm (130-400); Red Blood Count 3.89 10^6/uL (4.1-5.3)
[2021-08-31 16:57] LABS: Alanine Aminotransferase 14 U/L (0-33); Albumin Level 4.3 g/dL (3.5-5.2); Alkaline Phosphatase 62 IU/L (35-105); Anion Gap 13.3 (5-19); Aspartate Amino Transferase 18 U/L (0-32); Blood Urea Nitrogen 16 mg/dL (8-23); Calcium 9.5 mg/dL (8.5-10.5); Carbon Dioxide 29 mmol/L (22-29); Chloride 100 mmol/L (98-107); Globulin 2.6 g/dL (1.3-4.6); Glucose 102 mg/dL (65-115); Osmolality Calculated 287 mOsm/kg (285-295); Potassium 4.3 mmol/L (3.5-5.1); Sodium 138 mmol/L (136-145); Thyroid Stimulating Hormone 0.61 uIU/mL (0.27-4.20); Total Bilirubin 0.3 mg/dL (0.15-1.2); Total Protein 6.9 g/dL (6.6-8.7)
== END 2021-08-31 15:23 | disposition home or self-care (01) ==
LOC: LAB 15:28
PROVIDERS: PCP Family Medicine; Visit Provider Internal Medicine Cardiovascular Disease
DX: I48.0 Paroxysmal atrial fibrillation (principal); I50.32 Chronic diastolic (congestive) heart failure; R06.02 Shortness of breath; R07.89 Other chest pain; I27.82 Chronic pulmonary embolism; R60.0 Localized edema; G47.34 Idiopathic sleep related nonobstructive alveolar hypoventilation; R94.6 Abnormal results of thyroid function studies
CPT/HCPCS: 36415; 80053; 84443; 85025

== ENCOUNTER 2021-09-03 13:59 | Outpatient (CLI) | payer MEDICARE, OTHER, SELFPAY ==
--- NOTE | 2021-09-03 | USCV_ITS ---
Sana Murrell Age: 86 Gender: F : 1935 Exam Date: 09/03/2021 14:22 Ordering Phys: Yasmani Stout MD Technologist: CHARAN [place] [facility] [place]: near syncopal episode, bruit Risk Factors: Previous Vascular Surgery: NONE Right Brachial BP: / Left Brachial BP: / Right Left Velocity (cm/s) Spectral Plaque Velocity (cm/s) Spectral Plaque Syst/Diast Broadening Syst/Diast Broadening 63.90/ 8.80 None None Prox CCA 115.80/ 15.90 None None 76.10/ 11.00 None None Mid CCA 79.70 / 14.40 None None 65.10/ 14.30 None None Distal CCA 91.50 / 13.10 None None 107.90/22.20 Mod Hetro Prox ICA 120.60/ 19.00 Mod Hetro 128.50/19.00 Mod None Mid ICA 115.80/ 20.60 Mod 134.90/23.80 Mod None Distal ICA 103.20/ 20.60 Mod 339.00 Marked Hetro ECA 196.80 Mod Hetro 1.77 ICA/CCA 1.04 Antegrade Vertebral Antegrade 52.40/ 9.50 cm/s 57.10/ 14.30 cm/s Tri Subclavian Tri 123.8 174.6 0 0 FINDINGS Moderate scattered dense plaques bilaterally at the bifurcations and proximal internal carotid arteries Elevated velocity in the right external carotid artery Antegrade flow in the vertebral arteries bilaterally Normal Doppler velocities in the subclavian arteries bilaterally CONCLUSIONS Moderate scattered dense plaques bilaterally at the bifurcations and proximal internal carotid arteries with Doppler features, consistent with less than 50% stenosis. Elevated velocity in the right external carotid artery suggestive of hemodynamically significant stenosis. No significant stenosis in the vertebral and subclavian arteries, based on the above findings. Dr Josephine Rodgers MD [facility] (Electronically Signed) Final Date: 03 September 2021 21:07 S
== END 2021-09-03 14:00 | disposition home or self-care (01) ==
PROVIDERS: PCP Family Medicine; Visit Provider Family Medicine
DX: R09.89 Other specified symptoms and signs involving the circulatory and respiratory systems (principal); R55 Syncope and collapse; I65.23 Occlusion and stenosis of bilateral carotid arteries
CPT/HCPCS: 93880

== ENCOUNTER → 2021-09-16 11:42 | Outpatient (BNVA) | payer MEDICARE, OTHER, SELFPAY | PROVIDERS: PCP Family Medicine; Visit Provider Internal Medicine Cardiovascular Disease | DX: R06.02 Shortness of breath (principal); I11.0 Hypertensive heart disease with heart failure; I50.32 Chronic diastolic (congestive) heart failure; I49.9 Cardiac arrhythmia, unspecified; I48.0 Paroxysmal atrial fibrillation; I25.10 Atherosclerotic heart disease of native coronary artery without angina pectoris; R07.89 Other chest pain; Z87.891 Personal history of nicotine dependence | CPT/HCPCS: 36415; 80048; 83880; 93005; 99214 ==

== ENCOUNTER 2021-09-20 09:45 | Outpatient (CLI) | payer MEDICARE, OTHER, SELFPAY ==
[2021-09-20 10:23] LABS: Basophils % 0.5 %; Eosinophils # 0.1 10^3/uL (0.0-0.8); Eosinophils % 1.7 %; Hematocrit 38.6 % (37.0-47.0); Hemoglobin 12.8 g/dL (11.5-15.3); Lymphocytes # 2.5 10^3/uL (0.8-4.8); Lymphocytes % 30.2 %; Mean Corpuscular HGB Conc 33.2 g/dL (30.0-36.0); Mean Corpuscular Hemoglobin 32.1 pg (28.0-34.0); Mean Corpuscular Volume 96.7 fl (81-99); Mean Platelet Volume 9.8 fL (7.4-10.4); Monocytes # 0.7 10^3/uL (0.2-0.9); Monocytes % 8.4 %; Neutrophils # 4.97 10^3/uL (1.8-7.7); Nucleated Red Blood Cells % 0 %; Platelet Count 243 10^3/cmm (130-400); Red Blood Count 3.99 10^6/uL (4.1-5.3); Red Cell Distribution Width 13.9 % (12.1-15.1); White Blood Count 8.4 10^3/uL (4.0-10.0)
[2021-09-20 11:11] LABS: Alanine Aminotransferase 12 U/L (0-33); Albumin Level 4.2 g/dL (3.5-5.2); Alkaline Phosphatase 61 IU/L (35-105); Anion Gap 12.7 (5-19); Blood Urea Nitrogen 14 mg/dL (8-23); Calcium 9.7 mg/dL (8.5-10.5); Carbon Dioxide 30 mmol/L (22-29); Chloride 99 mmol/L (98-107); Globulin 2.9 g/dL (1.3-4.6); Glucose 98 mg/dL (65-115); Osmolality Calculated 286 mOsm/kg (285-295); Potassium 3.7 mmol/L (3.5-5.1); Sodium 138 mmol/L (136-145); Thyroid Stimulating Hormone 1.37 uIU/mL (0.27-4.20); Total Bilirubin 0.5 mg/dL (0.15-1.2); Total Protein 7.1 g/dL (6.6-8.7)
[2021-09-20 11:20] LABS: Aspartate Amino Transferase 17 U/L (0-32)
== END 2021-09-20 09:46 | disposition home or self-care (01) ==
LOC: LAB 09:49
PROVIDERS: PCP Family Medicine; Visit Provider Internal Medicine Cardiovascular Disease
DX: G47.33 Obstructive sleep apnea (adult) (pediatric) (principal); I48.0 Paroxysmal atrial fibrillation; I50.32 Chronic diastolic (congestive) heart failure; R06.02 Shortness of breath; R60.0 Localized edema; R07.89 Other chest pain; I27.82 Chronic pulmonary embolism
CPT/HCPCS: 36415; 80053; 84443; 85025

== ENCOUNTER → 2021-12-29 14:46 | Outpatient (BNVA) | payer MEDICARE, OTHER, SELFPAY | PROVIDERS: PCP Family Medicine; Visit Provider Otolaryngology | DX: J38.3 Other diseases of vocal cords (principal) | CPT/HCPCS: 31575; 99204; 99205 ==

== ENCOUNTER → 2022-05-09 09:32 | Outpatient (BNVA) | payer MEDICARE, OTHER, SELFPAY | PROVIDERS: PCP Family Medicine; Visit Provider Clinical Nurse Specialist Adult Health | DX: N39.0 Urinary tract infection, site not specified (principal) | CPT/HCPCS: 81000; 87077; 87086; 87184 ==

== ENCOUNTER → 2022-06-28 10:50 | Outpatient (BNVA) | payer MEDICARE, OTHER, SELFPAY | PROVIDERS: PCP Family Medicine; Visit Provider Internal Medicine Cardiovascular Disease | DX: R06.02 Shortness of breath (principal); R25.2 Cramp and spasm | CPT/HCPCS: 36415; 80048; 83735; 83880; 99214 ==

== ENCOUNTER → 2022-09-16 08:05 | Outpatient (BNVA) | payer MEDICARE, OTHER, SELFPAY | PROVIDERS: PCP Family Medicine; Visit Provider Family Medicine | DX: Z13.220 Encounter for screening for lipoid disorders; E03.9 Hypothyroidism, unspecified; E11.9 Type 2 diabetes mellitus without complications; E55.9 Vitamin D deficiency, unspecified | CPT/HCPCS: 80053; 80061; 82306; 83036; 84439; 84443; 85025 ==

== ENCOUNTER → 2022-10-13 12:59 | Outpatient (BNVA) | payer MEDICARE, OTHER, SELFPAY | PROVIDERS: PCP Family Medicine; Visit Provider Dermatology | DX: L57.0 Actinic keratosis (principal); L85.3 Xerosis cutis; L82.1 Other seborrheic keratosis; D69.2 Other nonthrombocytopenic purpura; Z85.828 Personal history of other malignant neoplasm of skin; L81.4 Other melanin hyperpigmentation; D23.71 Other benign neoplasm of skin of right lower limb, including hip | CPT/HCPCS: 17000; 17003; 99213 ==

== ENCOUNTER → 2022-12-23 07:37 | Outpatient (BNVA) | payer MEDICARE, OTHER, SELFPAY | PROVIDERS: PCP Family Medicine; Visit Provider Family Medicine | DX: Z79.01 Long term (current) use of anticoagulants (principal) | CPT/HCPCS: 85610 ==

== ENCOUNTER → 2022-12-26 08:45 | Outpatient (BNVA) | payer MEDICARE, OTHER, SELFPAY | PROVIDERS: PCP Family Medicine; Visit Provider Family Medicine | DX: Z79.01 Long term (current) use of anticoagulants (principal) | CPT/HCPCS: 85610 ==

== ENCOUNTER → 2022-12-29 08:05 | Outpatient (BNVA) | payer MEDICARE, OTHER, SELFPAY | PROVIDERS: PCP Family Medicine; Visit Provider Family Medicine | DX: R06.02 Shortness of breath (principal); Z79.899 Other long term (current) drug therapy; Z79.01 Long term (current) use of anticoagulants | CPT/HCPCS: 85610 ==

== ENCOUNTER → 2023-01-02 08:57 | Outpatient (BNVA) | payer MEDICARE, OTHER, SELFPAY | PROVIDERS: PCP Family Medicine; Visit Provider Family Medicine | DX: Z79.01 Long term (current) use of anticoagulants (principal) | CPT/HCPCS: 85610 ==

== ENCOUNTER → 2023-01-09 08:08 | Outpatient (BNVA) | payer MEDICARE, OTHER, SELFPAY | PROVIDERS: PCP Family Medicine; Visit Provider Family Medicine | DX: R06.02 Shortness of breath (principal); Z79.01 Long term (current) use of anticoagulants | CPT/HCPCS: 85610 ==

== ENCOUNTER → 2023-01-16 10:35 | Outpatient (BNVA) | payer MEDICARE, OTHER, SELFPAY | PROVIDERS: PCP Family Medicine; Visit Provider Family Medicine | DX: Z79.01 Long term (current) use of anticoagulants (principal) | CPT/HCPCS: 85610 ==

== ENCOUNTER → 2023-01-23 08:47 | Outpatient (BNVA) | payer MEDICARE, OTHER, SELFPAY | PROVIDERS: PCP Family Medicine; Visit Provider Family Medicine | DX: R06.02 Shortness of breath (principal); Z79.01 Long term (current) use of anticoagulants | CPT/HCPCS: 85610 ==

== ENCOUNTER → 2023-01-30 08:38 | Outpatient (BNVA) | payer MEDICARE, OTHER, SELFPAY | PROVIDERS: PCP Family Medicine; Visit Provider Family Medicine | DX: R06.02 Shortness of breath (principal); I48.91 Unspecified atrial fibrillation | CPT/HCPCS: 85610 ==

== ENCOUNTER → 2023-03-20 09:16 | Outpatient (BNVA) | payer MEDICARE, OTHER, SELFPAY | PROVIDERS: PCP Family Medicine; Visit Provider Family Medicine | DX: Z79.01 Long term (current) use of anticoagulants (principal) | CPT/HCPCS: 85610 ==

== ENCOUNTER 2023-04-25 08:44 | Emergency (ER) | payer MEDICARE, OTHER, SELFPAY ==
[2023-04-25 08:45] VITALS: BMI 25.8
--- NOTE | 2023-04-25 08:48 | XRR_ITS ---
PROCEDURE INFORMATION: Exam: XR Right Hip Exam date and time: 04/25/2023 9:26 AM Age: 88 years old Clinical indication: Hip pain; Right hip; Additional info: Trauma TECHNIQUE: Imaging protocol: Radiologic exam of the right hip. Views: 1 view hip with pelvis when performed. COMPARISON: CR XR pelvis 1-2V* [id number] 03/02/2020 11:58 AM FINDINGS: Bones/joints: There is an acute displaced intertrochanteric right hip fracture. Soft tissues: Unremarkable. XR/XR hip RT 2-3V wo/w pel* [id number] IMPRESSION: Acute displaced right intertrochanteric right hip fracture.
[2023-04-25 08:51] VITALS: BP 136/58; PULSE 64; RESP 16; TEMP 36.4; O2SAT 100
--- NOTE | 2023-04-25 08:56 | XRR_ITS ---
PROCEDURE INFORMATION: Exam: XR Right Elbow Exam date and time: 04/25/2023 9:25 AM Age: 88 years old Clinical indication: Pain; Elbow; Right; Additional info: Trauma TECHNIQUE: Imaging protocol: Radiologic exam of the right elbow. Views: 3 or more views. COMPARISON: CR XR wrist RT min 3V* [id number] 04/25/2023 9:23 AM FINDINGS: Bones/joints: There appears to be a nondisplaced fracture through the medial epicondyle. The joint space is preserved. Soft tissues: Normal. XR/XR elbow RT min 3V* [id number] IMPRESSION: Nondisplaced fracture through the medial epicondyle.
--- NOTE | 2023-04-25 08:56 | XRR_ITS ---
PROCEDURE INFORMATION: Exam: XR Right Wrist Exam date and time: 04/25/2023 9:23 AM Age: 88 years old Clinical indication: Pain; Wrist; Right TECHNIQUE: Imaging protocol: Radiologic exam of the right wrist. Views: 3 or more views. COMPARISON: CR XR hand RT min 3V* [id number] 04/25/2023 9:19 AM FINDINGS: Bones/joints: There is mild osteoarthritis at the base of the thumb. There is no evidence of acute fracture. Soft tissues: Normal. XR/XR wrist RT min 3V* [id number] IMPRESSION: No evidence of acute fracture.
--- NOTE | 2023-04-25 08:56 | XRR_ITS ---
PROCEDURE INFORMATION: Exam: XR Right Hand Exam date and time: 04/25/2023 9:19 AM Age: 88 years old Clinical indication: Pain; Hand; Right; Additional info: Trauma TECHNIQUE: Imaging protocol: Radiologic exam of the right hand. Views: 3 or more views. COMPARISON: CR XR hand RT min 3V* [id number] 08/23/2019 2:18 PM FINDINGS: Bones/joints: There is no evidence of acute fracture. There is a stable defect seen along the cortex of the 5th distal phalanx. Soft tissues: Normal. XR/XR hand RT min 3V* [id number] IMPRESSION: No significant change or evidence of acute fracture.
--- NOTE | 2023-04-25 08:57 | CT_ITS ---
WS: [id number] CT HEAD NONCONTRAST HISTORY: trauma, fall on Eliquis TECHNIQUE: Contiguous axial imaging performed through the brain in 2.5 mm imaging. Bone and soft tiss ue windows. Sagittal and coronal reformats reviewed. All CT scans at [facility] use at least one of these dose optimization techniques: automated exposure control; mA and/or kV adjustment per pa tient size (includes targeted exams where dose is matched to clinical indication); or iterative recon struction. DLP: 1158.18 mGy.cm COMPARISON: 07/14/2019 No acute intracranial hemorrhage, midline shift or mass effect. Mild atrophy and small vessel ischemic disease. Ventricles: Normal size with no hydrocephalus. No inferior displacement of the cerebellar tonsils. Paranasal sinuses: As visualized are clear. Mastoid air cells: Well pneumatized. Calvarium and scalp: Skull is intact with no soft tissue edema or swelling. IMPRESSION: 1. No acute intracranial hemorrhage or edema. 2. Mild atrophy and small vessel ischemic disease.
--- NOTE | 2023-04-25 08:57 | XRR_ITS ---
PROCEDURE INFORMATION: Exam: XR Chest Exam date and time: 04/25/2023 9:16 AM Age: 88 years old Clinical indication: Shortness of breath; Additional info: Dyspnea/cough TECHNIQUE: Imaging protocol: Radiologic exam of the chest. Views: 1 view. COMPARISON: CR XR chest 1V portable [id number] 05/29/2020 10:13 AM FINDINGS: Lungs: Unremarkable. No consolidation. Pleural spaces: Unremarkable. No pleural effusion. No pneumothorax. Heart/Mediastinum: Unremarkable. No cardiomegaly. Bones/joints: Unremarkable. XR/XR chest 1V portable [id number] IMPRESSION: No acute findings.
--- NOTE | 2023-04-25 08:59 | ED_ITS ---
HPI - Extremity Problem 2 General: Chief complaint: Extremity Injury, Lower Stated complaint: Fall R hip Pain Time Seen by Provider: 04/25/23 08:45 Source: patient Mode of arrival: EMS History of Present Illness: 88-year-old female brought in by EMS aft er a fall at home while she was taking care of her dog. Sounds like she may have stumbled over 3 years dog medicated for low-dose. She denies striking her head. Initial medication list as well as Eliquis and warfarin listed on it. She did hit her right elbow and her right hand has a pretty good-sized tendon tear on the dorsum of the right hand she complaining of right hip pain with shortening and rotation externally. She was given fentanyl at the scene still has a moderate amount of pain on arrival here. She denies chest pain or abdominal pain or recent illness. MD Complaint: joint pain Onset (ago): minute(s) Pain Consistency: constant Location: right (Hip) Quality: sharp Radiation: distal Relieving factors: immobilization Exacerbating factors: range of motion and palpation Associated symptoms: Deny arthralgias, chest pain, fever(s), myalgias, rash or short of breath Review of Systems 2 Const: Denies: fever(s) Card: Denies: chest pain Resp: Denies: dyspnea GI: Denies: abdominal pain : Denies: dysuria, urinary frequency or urinary urgency Musc: Reports: joint pain; Denies: neck pain or back pain Skin/Breast: Denies: rash PFSH ED 2 PFSH: Medical History Peripheral neuropathy Fibromyalgia Bronchitis Seronegative rheumatoid arthritis of both hands Inflammatory arthritis High risk medication use Immunization counseling Osteoarthritis of both hands Encounter for screening for other viral diseases Leg edema Chronic diastolic heart failure Chronic diastolic heart failure secondary to coronary artery disease Atypical chest pain Atrial fibrillation Pulmonary embolism SOB (shortness of breath) Trigger middle finger of left hand Osteoarthritis of CMC joint of thumb Episodic atrial fibrillation Pulmonary embolism Essential (primary) hypertension Surgical History History of hysterectomy Hx of cataract surgery Family History Mother Myocardial infarct Cancer CAD (coronary artery disease) Father Heart disease CAD (coronary artery disease) Brother Cancer Family/Other Lung disease Denies family history of Diabetes Clotting disorder Dementia Chronic kidney disease (CKD) Suicide Anesthesia complication Bleeding disorder Stroke Social History Smoking and tobacco/nicotine status: former use of tobacco/nicotine Quit status (tobacco/nicotine): has quit using Year quit tobacco: 1979 Alcohol intake: never Substance/Drug Use: never Lives independently: Yes Household members: none Current occupational status: retired Do you think of yourself as: Straight/Heterosexual Current gender identity: Female Physical Exam 2 Const: GENERAL APPEARANCE: cooperative ORIENTATION/CONSCIOUSNESS: Yes awake, Yes oriented to person, Yes oriented to place and Yes oriented to time HENMT: COMMON NORMALS: normocephalic, atraumatic and hearing grossly normal bilaterally HEAD & SCALP: normocephalic and atraumatic Resp: COMMON NORMALS: normal respiratory effort, No retractions, No use of accessory muscles and clear to auscultation bilaterally AUSCULTATION: clear to auscultation bilaterally Cardio: COMMON NORMALS: regular rate, regular rhythm and No murmurs present (Cardio) RATE: regular rate RHYTHM: regular rhythm GI: COMMON NORMALS: Soft to palpation and No hepatosplenomegaly present A USCULTATION: Yes normoactive bowel sounds PALPATION: Yes Soft to palpation, No Tenderness to palpation present (GI), No Guarding due to palpation present (GI) and Yes No hepatosplenomegaly present Extremity: OTHER: Shortening and external rotation of the right leg. Large skin tear on the dorsum of the right hand small abrasion over the olecranon on the right elbow no deformities in the right upper extremity neurovascularly right upper and lower extremities are intact Neuro: SENSORIUM/ORIENTATION: Yes oriented to person, Yes oriented to place and Yes oriented to time Skin: COMMON NORMALS: no rashes or lesions noted GENERAL SKIN EXAM: no rashes or lesions noted Course 2 Vital Signs: Vital signs: Vital Signs Temperature 97.5 F L 04/25/23 08:51 Pulse Rate 66 04/25/23 09:24 Respiratory Rate 16 04/25/23 11:25 Blood Pressure 140/62 04/25/23 09:24 Pulse Oximetry 97 04/25/23 09:24 Oxygen Delivery Me thod Room Air 04/25/23 09:24 Oxygen Flow Rate 2 04/25/23 08:51 MDM - Extremity (Nontraumatic) Medical Decision Making Patient has right subcapital and intercrural trochanteric displaced hip fracture. She also has a right elbow medial condyle fracture. Galvez has been placed she has been placed in a long-arm splint. Arrangements made for admission family requesting transfer to [place]. Advised him we have the capability here that this would be considered patient request which may have some other implications. They expressed understanding of this and wished to have the patient transferred. Called and talked to [place] transfer line we were able to get them to accept the patient to see ED to ED transfer (Dr. Candelario). All arrangements for admission here had been made and were canceled Dr. Luis and Dr. Smith were notified. We are waiting for transportation arrangements via [facility]. Transferred in stable condition via [facility] ambulance. Medical Records I reviewed the patient's medical records. Lab Data I reviewed the patient's lab results. 04/25/23 09:15 04/25/23 09:15 Radiology Impressions Hip/Pelvis X-Ray 04/25/23 08:48 IMPRESSION: Acute displaced right intertrochanteric right hip fracture. Elbow X-Ray 04/25/23 08:56 IMPRESSION: Nondisplaced fracture through the medial epicondyle. Hand X-Ray 04/25/23 08:56 IMPRESSION: No significant change or evidence of acute fracture. Wrist X-Ray 04/25/23 08:56 IMPRESSION: No evidence of acute fracture. Chest X-Ray 04/25/23 08:57 IMPRESSION: No acute findings. Laboratory Results WBC 7.27 10^3/uL (3.29-11.43) 04/25/23 09:15 RBC 4.03 10^6/uL (3.85-5.65) 04/25/23 09:15 Hgb 12.70 g/dL (11.27-16.99) 04/25/23 09:15 Hct 38.8 % (36-47) 04/25/23 09:15 MCV 96.3 fl (85-98) 04/25/23 09:15 MCH 31.5 pg (27-33) 04/25/23 09:15 MCHC 32.7 g/dL (30-55) 04/25/23 09:15 RDW 13.8 % (12.1-15.1) 04/25/23 09:15 Plt Count 210 10^3/cmm (157-399) 04/25/23 09:15 MPV 9.7 fL (7.4-10.4) 04/25/23 09:15 Neut % (Auto) 63.4 % 04/25/23 09:15 Lymph % (Auto) 26.4 % 04/25/23 09:15 [place] % (Auto) 8.0 % 04/25/23 09:15 Eos % (Auto) 1.5 % 04/25/23 09:15 Baso % (Auto) 0.4 % 04/25/23 09:15 Neut # (Auto) 4.61 10^3/uL (1.8-7.7) 04/25/23 09:15 Lymph # (Auto) 1.9 10^3/uL (0.8-4.8) 04/25/23 09:15 [place] # (Auto) 0.6 10^3/uL (0.2-0.9) 04/25/23 09:15 Eos # (Auto) 0.1 10^3/uL (0.0-0.8) 04/25/23 09:15 Baso # (Auto) 0.0 10^3/uL (0.0-0.1) 04/25/23 09:15 Nucleated RBC % (auto) 0 % 04/25/23 09:15 Nucleated RBCs # 0.0 /100WBC 04/25/23 09:15 PT 20.60 SECONDS (12.1-14.9) H 04/25/23 09:15 INR 1.71 (0.8-1.2) H 04/25/23 09:15 APTT 29.0 SECONDS (23.9-36.7) 04/25/23 09:15 Sodium 137 mmol/L (136-145) 04/25/23 09:15 Potassium 3.8 mmol/L (3.5-5.1) 04/25/23 09:15 Chloride 100 mmol/L (98-107) 04/25/23 09:15 Carbon Dioxide 27 mmol/L (22-29) 04/25/23 09:15 Anion Gap 13.8 (5-19) 04/25/23 09:15 BUN 27 mg/dL (8-23) H 04/25/23 09:15 Creatinine 0.7 mg/dL (0.5-0.9) 04/25/23 09:15 GFR Calculation Not Reportable 04/25/23 09:15 Glucose 149 mg/dL (65-115) H 04/25/23 09:15 Calculated Osmolality 292 mOsm/kg (285-295) 04/25/23 09:15 Calcium 9.4 mg/dL (8.5-10.5) 04/25/23 09:15 Total Bilirubin 0.4 mg/dL (0.15-1.2) 04/25/23 09:15 AST 18 U/L (0-32) 04/25/23 09:15 ALT 8 U/L (0-33) 04/25/23 09:15 Alkaline Phosphatase 54 U/L (35-105) 04/25/23 09:15 Total Protein 7.0 g/dL (6.6-8.7) 04/25/23 09:15 Albumin 4.0 g/dL (3.5-5.2) 04/25/23 09:15 Globulin 3.0 g/dL (1.3-4.6) 04/25/23 09:15 All radiology interpretation(s) finalized by discharge Discharge Plan Discharge Patient Disposition: Transfer to ED Clinical Impression: Closed fracture of right hip, Chronic anticoagulation, Fracture of elbow, medial condyle, right, closed, History of pulmonary embolism, History of atrial fibrillation Condition: Stable Prescriptions: No Action biotin 10,000 mcg capsule 10,000 mcg PO QAM acetaminophen [Tylenol Extra Strength] 500 mg tablet 500 mg PO BEDTIME (DME) oxygen-air delivery systems Device See Rx Instructions .ROUTE .MEDSUPPLY Qty: 1 Rx Instructions: As directed levothyroxine 75 mcg tablet 75 mcg PO DAILY Qty: 90 3RF metoprolol succinate 100 mg tablet extended release 24 hr 100 mg PO QAM Qty: 90 3RF prednisone 5 mg tablet 5 mg PO DAILY Qty: 90 1RF cholecalciferol (vitamin D3) [Vitamin D3] 50 mcg (2,000 unit) Capsule 2,000 unit PO QPM triamcinolone acetonide 0.5 % cream 1 applic topical BID PRN (Reason: Rash) spironolactone 25 mg tablet 25 mg PO QAM trazodone 100 mg tablet 100 mg PO BEDTIME magnesium oxide 400 mg magnesium Tablet 400 mg PO QAM furosemide 80 mg tablet See Rx Instructions .ROUTE .COMPLEX Rx Instructions: Alternate frequency -take 1 tab (80mg) po once a day one day and the next day take one tab (80mg) bid warfarin 5 mg tablet 5 mg PO QPM potassium chloride 20 mEq tablet extended release See Rx Instructions .ROUTE .COMPLEX Rx Instructions: Alternate frequency -take 1 tab (20meq) po once a day one day and the next day take one tab (20meq) bid (take with lasix) Referrals: Yasmani Stout MD [Primary Care Provider] - Coding Level of Care Code ED [employer] for [facility]
[2023-04-25 09:24] VITALS: BP 140/62; PULSE 66; RESP 16; O2SAT 97
[2023-04-25] MEDS: fentaNYL 50 mcg/mL INJ 2mL 25 MCG IVP ×2 (09:24→11:25)
[2023-04-25 09:27] LABS: Basophils % 0.4 %; Eosinophils # 0.1 10^3/uL (0.0-0.8); Eosinophils % 1.5 %; Hematocrit 38.8 % (36-47); Lymphocytes # 1.9 10^3/uL (0.8-4.8); Lymphocytes % 26.4 %; Mean Corpuscular HGB Conc 32.7 g/dL (30-55); Mean Corpuscular Hemoglobin 31.5 pg (27-33); Mean Corpuscular Volume 96.3 fl (85-98); Mean Platelet Volume 9.7 fL (7.4-10.4); Monocytes # 0.6 10^3/uL (0.2-0.9); Neutrophils # 4.61 10^3/uL (1.8-7.7); Neutrophils % 63.4 %; Nucleated Red Blood Cells % 0 %; Platelet Count 210 10^3/cmm (157-399); Red Blood Count 4.03 10^6/uL (3.85-5.65); Red Cell Distribution Width 13.8 % (12.1-15.1); White Blood Count 7.27 10^3/uL (3.29-11.43)
[2023-04-25 09:37] LABS: INR 1.71 (0.8-1.2)
--- NOTE | 2023-04-25 09:44 | CT_ITS ---
WS: [id number] CT RIGHT HIP, NONCONTRAST HISTORY: fracture Technique: All CT scans at [facility] use at least one of these dose optimization techniques: automated exposure control; mA and/or kV adjustment per patient size (includes targeted exams where dose is matched to clinical indication); or iterative reconstruction. DLP: 407.21 mGy.cm COMPARISON: Radiographs 04/25/2023 Acute subtrochanteric fracture. The fracture extends obliquely through the proximal femur to involve the lesser trochanter. In the subtrochanteric region fracture is medially displaced by 1.9 cm. Avulsi on of the lesser tuberosity. There is an additional fracture extending superiorly through the base of the greater trochanter with extension to the femoral neck. Fracture extends over a length of 8 cm from the femoral neck fracture to the subtrochanteric fracture. Mild soft tissue edema surrounding the hip. IMPRESSION: 1. Complex fracture with displacement involving the RIGHT hip. Fracture extends over a length of 8 c m from the femoral neck inferiorly. 2. Oblique subtrochanteric fracture displaced medially by 1.9 cm. Fracture extends through the lesse r trochanter. 3. Additional vertical fracture extends through the base of the greater trochanter but also into the femoral neck.
[2023-04-25 09:48] LABS: Alanine Aminotransferase 8 U/L (0-33); Alkaline Phosphatase 54 U/L (35-105); Anion Gap 13.8 (5-19); Aspartate Amino Transferase 18 U/L (0-32); Blood Urea Nitrogen 27 mg/dL (8-23); Calcium 9.4 mg/dL (8.5-10.5); Carbon Dioxide 27 mmol/L (22-29); Chloride 100 mmol/L (98-107); Creatinine Clr Calc Pharmacy 52.3215; Glucose 149 mg/dL (65-115); Osmolality Calculated 292 mOsm/kg (285-295); Potassium 3.8 mmol/L (3.5-5.1); Sodium 137 mmol/L (136-145); Total Bilirubin 0.4 mg/dL (0.15-1.2)
--- NOTE | 2023-04-25 10:03 | PC.PHAR ---
pt and pts family states the pt takes care of her own medications-pt states she is not taking eliquis 5mg bid pt states she is taking warfarin 5mg daily ext shows last filled 04/15/23 30d/s Take 1 tab (5mg) PO daily on Sun, Mon, Wed, Thurs, Sat pt states those were old directions states just takes 5mg daily-pt states she alternates frequency on lasix and kcl 20meq states takes one tab once a day one day then takes one tab bid the next day on both lasix and kcl-pt states she buys mag otc-
[2023-04-25 11:25] VITALS: RESP 16
[2023-04-25 11:40] LABS: Add Urine Microscopic? NO; Charge for UA Resulting for Rev
[2023-04-25 11:52] LABS: Bilirubin Urine Neg (Negative); Blood Urine Neg (Negative); Glucose Urine UA Norm (Normal); Ketones Urine Negative (Negative); Leukocyte Esterase Urine Negative (Negative); Nitrate Urine Negative (Negative); Protein Urine Neg (Negative); Specific Gravity, Urine 1.025 (1.005-1.030); Urine Appearance Clear (CLEAR); Urine Color Yellow (Yellow); Urobilinogen Urine Norm (Negative); pH Urine 6 (5-7)
[2023-04-25 11:55] VITALS: PULSE 76; RESP 16; O2SAT 98
[2023-04-25 11:58] VITALS: BP 140/62; PULSE 76; RESP 16; TEMP 36.4; O2SAT 98
== END 2023-04-25 12:02 ==
PROVIDERS: Emergency Provider Family Medicine; PCP Family Medicine
DX: S72.141A Displaced intertrochanteric fracture of right femur, initial encounter for closed fracture (principal); S42.444A Nondisplaced fracture (avulsion) of medial epicondyle of right humerus, initial encounter for closed fracture; Z86.711 Personal history of pulmonary embolism; I48.91 Unspecified atrial fibrillation; D68.318 Other hemorrhagic disorder due to intrinsic circulating anticoagulants, antibodies, or inhibitors; Z79.01 Long term (current) use of anticoagulants; Z87.891 Personal history of nicotine dependence; I11.0 Hypertensive heart disease with heart failure; I50.30 Unspecified diastolic (congestive) heart failure; I25.10 Atherosclerotic heart disease of native coronary artery without angina pectoris; W18.09XA Striking against other object with subsequent fall, initial encounter
CPT/HCPCS: 51702; 70450; 71045; 73080; 73110; 73130; 73502; 73700; 80053; 81003; 85025; 85610; 85730; 96374; 96376; 99285; J3010

== ENCOUNTER 2023-05-09 13:07 | Outpatient (CLI) | payer MEDICARE, OTHER, SELFPAY ==
--- NOTE | 2023-05-09 13:15 | XR_ITS ---
WS: [id number] Exam: XR hip RT 2-3V wo/w pel* [id number] Date/Time of Exam: 05/09/2023 1:31 PM Reason For Exam: Right hip pain - new pain after pop today Comparison 04/25/2023. There is an intertrochanteric fracture of the RIGHT hip stabilized with an intramedullary darnell and fem oral neck screw. The distal end of the femoral darnell is out of the [id number]. The fracture is in sa tisfactory position for healing. Postoperative changes in the adjacent soft tissues. Lateral surgical skin clips. IMPRESSION: 1. Intertrochanteric fracture of the RIGHT hip stabilized in satisfactory alignment with internal fix ation.
== END 2023-05-09 13:08 | disposition home or self-care (01) ==
LOC: RAD 13:10
PROVIDERS: PCP Family Medicine; Visit Provider Family Medicine
DX: S72.001A Fracture of unspecified part of neck of right femur, initial encounter for closed fracture (principal); X58.XXXA Exposure to other specified factors, initial encounter
CPT/HCPCS: 73502

== ENCOUNTER → 2023-05-18 11:05 | Outpatient (BNVA) | payer MEDICARE, OTHER, SELFPAY | PROVIDERS: PCP Family Medicine; Visit Provider Family Medicine | DX: Z51.81 Encounter for therapeutic drug level monitoring (principal); M81.0 Age-related osteoporosis without current pathological fracture; R30.0 Dysuria | CPT/HCPCS: 80053; 81000; 83735; 85025 ==

== ENCOUNTER 2023-05-23 14:43 | Outpatient (CLI) | payer MEDICARE, OTHER, SELFPAY ==
--- NOTE | 2023-05-23 15:00 | XR_ITS ---
WS: [id number] DEXA (DUAL ENERGY X-RAY ABSORPTIOMETRY) Bone mineral density was performed using a [employer] machine. HISTORY: Hip fracture COMPARISON: 05/31/2017 Lumbar spine BMD (L1-L4): 1.058 g/cm2 T score: -1.0 Z score: 0.4 Total hip BMD: Left: 0.700 (g/cm2). T score: -2.4 (no units) Z score: -0.4 (no units) Left forearm BMD: 0.625 g/cm2. T score: -2.9 Z score: 0.5 10 year probability of a major osteoporotic fracture is 43%. Compared to the prior study from 05/31/2017. Lumbar spine bone mineral density has decreased by 2.6%. LEFT hip bone mineral density has decreased by 12.8%. IMPRESSION: OSTEOPOROSIS based upon the WHO classification for females. Significant decrease in bone mineral density within the lumbar spine and the LEFT hip since the prior study.
== END 2023-05-23 14:44 | disposition home or self-care (01) ==
LOC: RAD 14:43
PROVIDERS: PCP Family Medicine; Visit Provider Family Medicine
DX: M81.0 Age-related osteoporosis without current pathological fracture (principal)
CPT/HCPCS: 77080

== ENCOUNTER → 2023-06-07 08:25 | Outpatient (BNVA) | payer MEDICARE, OTHER, SELFPAY | PROVIDERS: PCP Family Medicine; Visit Provider Specialist | DX: S72.21XA Displaced subtrochanteric fracture of right femur, initial encounter for closed fracture; S42.464A Nondisplaced fracture of medial condyle of right humerus, initial encounter for closed fracture; X58.XXXA Exposure to other specified factors, initial encounter | CPT/HCPCS: 73080; 73502; 99204 ==

== ENCOUNTER → 2023-07-26 07:38 | Outpatient (BNVA) | payer MEDICARE, OTHER, SELFPAY | PROVIDERS: PCP Family Medicine; Visit Provider Specialist | DX: S72.001A Fracture of unspecified part of neck of right femur, initial encounter for closed fracture (principal); X58.XXXA Exposure to other specified factors, initial encounter | CPT/HCPCS: 73502; 99214 ==

== ENCOUNTER → 2023-09-11 08:57 | Outpatient (BNVA) | payer MEDICARE, OTHER, SELFPAY | PROVIDERS: PCP Family Medicine; Visit Provider Family Medicine | DX: I48.91 Unspecified atrial fibrillation (principal) | CPT/HCPCS: 85610 ==

== ENCOUNTER → 2023-09-14 08:05 | Outpatient (BNVA) | payer MEDICARE, OTHER, SELFPAY | PROVIDERS: PCP Family Medicine; Visit Provider Family Medicine | DX: I48.91 Unspecified atrial fibrillation (principal) | CPT/HCPCS: 85610 ==

== ENCOUNTER → 2023-09-18 08:19 | Outpatient (BNVA) | payer MEDICARE, OTHER, SELFPAY | PROVIDERS: PCP Family Medicine; Visit Provider Family Medicine | DX: I48.91 Unspecified atrial fibrillation (principal) | CPT/HCPCS: 85610 ==

== ENCOUNTER → 2023-09-21 08:21 | Outpatient (BNVA) | payer MEDICARE, OTHER, SELFPAY | PROVIDERS: PCP Family Medicine; Visit Provider Family Medicine | DX: Z79.01 Long term (current) use of anticoagulants (principal) | CPT/HCPCS: 85610 ==

== ENCOUNTER → 2023-09-28 09:02 | Outpatient (BNVA) | payer MEDICARE, OTHER, SELFPAY | PROVIDERS: PCP Family Medicine; Visit Provider Family Medicine | DX: I48.91 Unspecified atrial fibrillation (principal) | CPT/HCPCS: 85610 ==

== ENCOUNTER → 2023-10-02 13:35 | Outpatient (BNVA) | payer MEDICARE, OTHER, SELFPAY | PROVIDERS: PCP Family Medicine; Visit Provider Family Medicine | DX: I48.91 Unspecified atrial fibrillation (principal) | CPT/HCPCS: 85610 ==

== ENCOUNTER → 2023-10-25 08:54 | Outpatient (BNVA) | payer MEDICARE, OTHER, SELFPAY | PROVIDERS: PCP Family Medicine; Visit Provider Nurse Practitioner | DX: S72.21XS Displaced subtrochanteric fracture of right femur, sequela (principal); M54.41 Lumbago with sciatica, right side; G89.29 Other chronic pain; X58.XXXS Exposure to other specified factors, sequela | CPT/HCPCS: 73502; 85610; 99213 ==

== ENCOUNTER → 2023-11-02 12:29 | Outpatient (BNVA) | payer MEDICARE, OTHER, SELFPAY | PROVIDERS: PCP Family Medicine; Visit Provider Internal Medicine Cardiovascular Disease | DX: R06.02 Shortness of breath (principal) | CPT/HCPCS: 36415; 80048; 83880 ==

== ENCOUNTER → 2023-11-06 08:48 | Outpatient (BNVA) | payer MEDICARE, OTHER, SELFPAY | PROVIDERS: PCP Family Medicine; Visit Provider Family Medicine | DX: I48.91 Unspecified atrial fibrillation (principal) | CPT/HCPCS: 85610 ==

== ENCOUNTER → 2023-11-21 09:45 | Outpatient (BNVA) | payer MEDICARE, OTHER, SELFPAY | PROVIDERS: PCP Family Medicine; Visit Provider Family Medicine | DX: I48.91 Unspecified atrial fibrillation (principal) | CPT/HCPCS: 85610 ==

== ENCOUNTER → 2024-01-16 10:29 | Outpatient (BNVA) | payer MEDICARE, OTHER, SELFPAY | PROVIDERS: PCP Family Medicine; Visit Provider Family Medicine | DX: I48.91 Unspecified atrial fibrillation (principal) | CPT/HCPCS: 85610 ==

== ENCOUNTER → 2024-01-31 09:51 | Outpatient (BNVA) | payer MEDICARE, OTHER, SELFPAY | PROVIDERS: PCP Family Medicine; Visit Provider Nurse Practitioner | DX: M54.41 Lumbago with sciatica, right side; G89.29 Other chronic pain; S72.21XS Displaced subtrochanteric fracture of right femur, sequela; X58.XXXS Exposure to other specified factors, sequela; I48.91 Unspecified atrial fibrillation | CPT/HCPCS: 73502; 85610; 99213 ==

== ENCOUNTER → 2024-02-09 09:43 | Outpatient (BNVA) | payer MEDICARE, OTHER, SELFPAY | PROVIDERS: PCP Family Medicine; Visit Provider Family Medicine | DX: Z79.01 Long term (current) use of anticoagulants (principal) | CPT/HCPCS: 85610 ==

== ENCOUNTER → 2024-02-21 12:34 | Outpatient (BNVA) | payer MEDICARE, OTHER, SELFPAY | PROVIDERS: PCP Family Medicine; Visit Provider Family Medicine | DX: Z51.81 Encounter for therapeutic drug level monitoring (principal); E03.9 Hypothyroidism, unspecified; N63.0 Unspecified lump in unspecified breast; I48.91 Unspecified atrial fibrillation | CPT/HCPCS: 80053; 83735; 84439; 84443; 85025; 85610 ==

== ENCOUNTER → 2024-02-27 15:53 | Outpatient (BNVA) | payer MEDICARE, OTHER, SELFPAY | PROVIDERS: PCP Family Medicine; Visit Provider Family Medicine | DX: I48.91 Unspecified atrial fibrillation (principal) | CPT/HCPCS: 85610 ==

== ENCOUNTER 2024-03-05 10:46 | Outpatient (CLI) | payer MEDICARE, OTHER, SELFPAY ==
--- NOTE | 2024-03-05 11:00 | MM_ITS ---
WS: [id number] DIAGNOSTIC BILATERAL DIGITAL BREAST TOMOSYNTHESIS MAMMOGRAPHY WITH CAD LEFT breast ultrasound, limited HISTORY: Left breast mass at 2 o'clock under the areola COMPARISON: 05/30/2017, 08/26/2011 TECHNIQUE: Bilateral craniocaudad, mediolateral oblique, and mediolateral views are submitted with to mosynthesis and SM. Spot compression LEFT CC and MLO. Computer aided detection utilized. Breast composition: There are scattered areas of fibroglandular density. New irregular, spiculated high density mass LEFT breast in the subareolar region. Mass measures 2.1 x 1.9 x 1.2 cm. Spiculations with tethering and central calcifications which have increased in number. There is nipple retraction. There is an additional palpable marker placed towards the axillary tail which may indicate an underlying lymph nodes. Ultrasound will be performed in this area also. Benign calcifications and stability of the RIGHT breast. LEFT breast ultrasound, limited. Irregular mass with indistinct angular margins. Mass is predominantly hypoechoic with some shadowing. Mass measures 0.9 x 1.0 x 0.9 cm and corresponds to the mammographic abnormality. Mass is subareolar and slightly to the LEFT of midline. No abnormality is noted in the LEFT axilla or axillary tail. MM/MM diag BI tomosynthesis [id number] IMPRESSION: BI-RADS: 5 - Highly suggestive of Malignancy. FOLLOW UP: Biopsy Recommended Ultrasound-guided biopsy LEFT breast mass recommended. Notified Yasmani Stout MD at 03/05/2024 12:12 PM.
--- NOTE | 2024-03-05 11:54 | US_ITS ---
WS: [id number] DIAGNOSTIC BILATERAL DIGITAL BREAST TOMOSYNTHESIS MAMMOGRAPHY WITH CAD LEFT breast ultrasound, limited HISTORY: Left breast mass at 2 o'clock under the areola COMPARISON: 05/30/2017, 08/26/2011 TECHNIQUE: Bilateral craniocaudad, mediolateral oblique, and mediolateral views are submitted with to mosynthesis and SM. Spot compression LEFT CC and MLO. Computer aided detection utilized. Breast composition: There are scattered areas of fibroglandular density. New irregular, spiculated high density mass LEFT breast in the subareolar region. Mass measures 2.1 x 1.9 x 1.2 cm. Spiculations with tethering and central calcifications which have increased in number. There is nipple retraction. There is an additional palpable marker placed towards the axillary tail which may indicate an underlying lymph nodes. Ultrasound will be performed in this area also. Benign calcifications and stability of the RIGHT breast. LEFT breast ultrasound, limited. Irregular mass with indistinct angular margins. Mass is predominantly hypoechoic with some shadowing. Mass measures 0.9 x 1.0 x 0.9 cm and corresponds to the mammographic abnormality. Mass is subareolar and slightly to the LEFT of midline. No abnormality is noted in the LEFT axilla or axillary tail. US/US breast LT limited* [id number] IMPRESSION: BI-RADS: 5 - Highly suggestive of Malignancy. FOLLOW UP: Biopsy Recommended Ultrasound-guided biopsy LEFT breast mass recommended. Notified Yasmani Stout MD at 03/05/2024 12:12 PM.
== END 2024-03-05 10:47 | disposition home or self-care (01) ==
LOC: RAD 10:47
PROVIDERS: PCP Family Medicine; Visit Provider Family Medicine
DX: N63.21 Unspecified lump in the left breast, upper outer quadrant (principal); R92.8 Other abnormal and inconclusive findings on diagnostic imaging of breast; R92.1 Mammographic calcification found on diagnostic imaging of breast; R92.323 Mammographic fibroglandular density, bilateral breasts
CPT/HCPCS: 76642; 77062; G0279

== ENCOUNTER 2024-03-17 21:31 | Emergency (ER) | payer MEDICARE, OTHER, SELFPAY ==
[2024-03-17 21:32] VITALS: PULSE 84; RESP 16; TEMP 37.3; O2SAT 91; BMI 28.1
--- NOTE | 2024-03-17 21:54 | XRR_ITS ---
PROCEDURE INFORMATION: Exam: XR Chest Exam date and time: 03/17/2024 9:57 PM Age: 89 years old Clinical indication: Cough; SOB TECHNIQUE: Imaging protocol: Radiologic exam of the chest. Views: 1 view. COMPARISON: CR XR chest 1V portable [id number] 04/25/2023 9:16 AM FINDINGS: Lungs: Unremarkable. No consolidation. Pleural spaces: Unremarkable. No pleural effusion. No pneumothorax. Heart/Mediastinum: There is stable cardiomegaly. Vasculature: There is atherosclerotic calcification in the aortic arch. Bones/joints: Unremarkable. XR/XR chest 1V portable [id number] IMPRESSION: No acute cardiopulmonary abnormality.
--- NOTE | 2024-03-17 21:55 | W.ED.GENADLT ---
Documented by User: LAYLA Wood 03/18/24 00:30 HPI - General Adult General: Chief complaint: Upper Respiratory Infection Stated complaint: FLU LIKE SYMPTOMS Time Seen by Provider: 03/17/24 21:38 History of Present Illness: 89-year-old female comes in today for complaints of illness starting Monday. Patient has a history of osteoporosis, atrial fibs, CHF, hypothyroidism, and pulmonary embolism. Patient has had 3 episodes of emesis today. Some with some green type bile. Patient is also coughed up some tequila colored phlegm. Patient has had her appendix removed when she had a hysterectomy. Patient does continue to have her gallbladder. Patient appears unwell but not toxic. Family reports poor oral intake and nausea with vomiting. Patient had difficulty holding down fluids and food today. Related Data Home Medications Medication Instructions Recorded Confirmed oxygen-air delivery systems ##1 03/05/19 03/05/24 acetaminophen 500 mg tablet 500 mg PO BEDTIME 05/21/20 03/05/24 (Tylenol Extra Strength) biotin 10,000 mcg capsule 10,000 mcg PO QAM 05/21/20 03/05/24 cholecalciferol (vitamin D3) 50 2,000 unit PO QPM 05/29/20 03/05/24 mcg (2,000 unit) capsule (Vitamin D3) magnesium oxide 400 mg PO QAM 04/25/23 03/05/24 potassium chloride 20 mEq See Rx Instructions .Route .COMPLEX 04/25/23 03/05/24 tablet,extended release triamcinolone acetonide 0.5 % 1 applic topical BID PRN Rash 04/25/23 03/05/24 topical cream Previous Rx's Medication Instructions Recorded tramadol 50 mg tablet 50 mg PO TID PRN pain #60 tabs 05/10/23 alendronate 70 mg tablet (Fosamax) 70 mg PO Q7D #12 tabs 05/31/23 prednisone 20 mg tablet 20 mg PO DAILY 8 days #10 tabs 10/25/23 warfarin 1 mg tablet 1 mg PO DAILY #90 tabs 12/29/23 warfarin 5 mg tablet 5 mg PO DAILY #90 tabs 12/29/23 furosemide 80 mg tablet See Rx Instructions .Route 02/26/24 .COMPLEX #135 tabs levothyroxine 75 mcg tablet 75 mcg PO DAILY #90 tabs 02/26/24 metoprolol succinate 100 mg 100 mg PO QAM #90 tabs 02/26/24 tablet,extended release 24 hr spironolactone 25 mg tablet See Rx Instructions .Route 02/26/24 .COMPLEX #90 tabs trazodone 100 mg tablet See Rx Instructions .Route 02/26/24 .COMPLEX #90 tabs prednisone 5 mg tablet 20 mg (4 x 5 mg) PO DAILY #60 tabs 02/27/24 prednisone 1 mg tablet 4 mg (4 x 1 mg) PO DAILY #120 tabs 03/05/24 enoxaparin 80 mg/0.8 mL 80 mg (0.8 mL) SUBCUT Q12H 5 days 03/12/24 subcutaneous syringe #8 mL ondansetron 4 mg disintegrating 4 mg PO Q8H PRN nausea and 03/18/24 tablet vomiting #10 tabs Allergies Allergy/AdvReac Type Severity Reaction Status Date / Time piroxicam [From Feldene] Allergy ALGY-Hives Verified 01/31/24 10:04 Review of Systems General: Reports: 10 or more systems reviewed and unremarkable except in HPI and below PFSH ED PFSH: Medical History Low back pain with right-sided sciatica Peripheral neuropathy Fibromyalgia Bronchitis Seronegative rheumatoid arthritis of both hands Inflammatory arthritis High risk medication use Immunization counseling Osteoarthritis of both hands Encounter for screening for other viral diseases Leg edema Chronic diastolic heart failure Chronic diastolic heart failure secondary to coronary artery disease Atypical chest pain Atrial fibrillation Pulmonary embolism SOB (shortness of breath) Trigger middle finger of left hand Osteoarthritis of CMC joint of thumb Episodic atrial fibrillation Pulmonary embolism Essential (primary) hypertension Surgical History Hip fracture, right Surgery at [facility] 2023 History of hysterectomy Hx of cataract surgery Family History Mother Myocardial infarct Cancer CAD (coronary artery disease) Father Heart disease CAD (coronary artery disease) Brother Cancer Family/Other Lung disease Denies family history of Diabetes Clotting disorder Dementia Chronic kidney disease (CKD) Suicide Anesthesia complication Bleeding disorder Stroke Social History Smoking and tobacco/nicotine status: never used tobacco/nicotine Quit status (tobacco/nicotine): has quit using Year quit tobacco: 1979 Alcohol intake: never Substance/Drug Use: never Lives independently: Yes Household members: none Current occupational status: retired Do you think of yourself as: Straight/Heterosexual Current gender identity: Female Physical Exam Const: COMMON NORMALS: alert HENMT: COMMON NORMALS: normocephalic HEAD & SCALP: normocephalic Neck/C-Spine: COMMON NORMALS: full ROM Resp: COMMON NORMALS: normal respiratory effort and clear to auscultation bilaterally AUSCULTATION: clear to auscultation bilaterally Cardio: COMMON NORMALS: regular rate and regular rhythm RATE: regular rate RHYTHM: regular rhythm GI: COMMON NORMALS: Soft to palpation and non-tender PALPATION: Yes Soft to palpation Extremity: COMMON NORMALS: full ROM Neuro: SENSORIUM/ORIENTATION: Yes alert Psych: COMMON NORMALS: normal affect Course Vital Signs: Vital signs: Vital Signs Temperature 99.2 F 03/17/24 21:32 Pulse Rate 74 03/18/24 01:01 Respiratory Rate 16 03/17/24 21:32 Blood Pressure 128/61 03/18/24 01:01 Pulse Oximetry 95 03/18/24 01:01 Oxygen Delivery Me thod Room Air 03/17/24 22:30 MDM - General Adult Medical Decision Making 89-year-old female comes in today with illness since Monday. Patient reports it started with sore throat. Patient's had poor oral intake today and nausea with vomiting. Patient appears unwell but not toxic. Patient is scheduled to have a biopsy on Monday. Patient takes warfarin routinely because of atrial fibs and history of PE. Patient has been off her warfarin at this time for preparation of biopsy on Monday. Patient is alert and oriented. Abdomen soft nontender. Patient has 3 family members present that are very concerned about her health. Differential diagnosis pneumonia, viral syndrome, urinary tract infection, gastroenteritis. Laboratory values were unremarkable. Chest x-ray shows no pneumonia. CT of the abdomen pelvis was unremarkable. Patient was given 500 mL of fluid and Zofran. Encourage plenty of fluids. Talking with Dr. Stout in the morning regarding illness. Also discussed the use of the warfarin and if patient needs to have biopsy Monday. Lab Data 03/17/24 22:00 03/17/24 22:00 Radiology Impressions Chest X-Ray 03/17/24 21:54 IMPRESSION: No acute cardiopulmonary abnormality. Abdomen/Pelvis CT 03/17/24 22:43 IMPRESSION: Cardiomegaly. Hiatal hernia. Fatty liver. Right renal cyst. Other surgical changes as described above. Correlate with the patient's clinical history. COMMENTS: Consistent with the [place] [employer]'s Incidental Findings Committee white paper (J Am Pao Radiol 2018): Any incidental renal lesion less than 1 cm or classified as too small to characterize, or any incidental cystic renal lesion characterized as simple-appearing, is likely benign. No follow-up imaging is recommended for these lesions per consensus recommendations based on imaging criteria. Laboratory Results WBC 6.55 10^3/uL (3.29-11.43) 03/17/24 22:00 RBC 3.50 10^6/uL (3.85-5.65) L 03/17/24 22:00 Hgb 10.70 g/dL (11.27-16.99) L 03/17/24 22:00 Hct 33.5 % (36-47) L 03/17/24 22:00 MCV 95.7 fl (85-98) 03/17/24 22:00 MCH 30.6 pg (27-33) 03/17/24 22:00 MCHC 31.9 g/dL (30-55) 03/17/24 22:00 RDW 14.8 % (12.1-15.1) 03/17/24 22:00 Plt Count 158 10^3/cmm (157-399) 03/17/24 22:00 MPV 9.8 fL (7.4-10.4) 03/17/24 22:00 Neut % (Auto) 75.4 % 03/17/24 22:00 Lymph % (Auto) 14.0 % 03/17/24 22:00 [place] % (Auto) 9.8 % 03/17/24 22:00 Eos % (Auto) 0.2 % 03/17/24 22:00 Baso % (Auto) 0.3 % 03/17/24 22:00 Neut # (Auto) 4.94 10^3/uL (1.8-7.7) 03/17/24 22:00 Lymph # (Auto) 0.9 10^3/uL (0.8-4.8) 03/17/24 22:00 [place] # (Auto) 0.6 10^3/uL (0.2-0.9) 03/17/24 22:00 Eos # (Auto) 0.0 10^3/uL (0.0-0.8) 03/17/24 22:00 Baso # (Auto) 0.0 10^3/uL (0.0-0.1) 03/17/24 22:00 Nucleated RBC % (auto) 0 % 03/17/24 22:00 Nucleated RBCs # 0.0 /100WBC 03/17/24 22:00 PT 17.00 SECONDS (12.1-14.9) H 03/17/24 22:00 INR 1.29 (0.8-1.2) H 03/17/24 22:00 Sodium 133 mmol/L (136-145) L 03/17/24 22:00 Potassium 4.1 mmol/L (3.5-5.1) 03/17/24 22:00 Chloride 98 mmol/L (98-107) 03/17/24 22:00 Carbon Dioxide 22 mmol/L (22-29) 03/17/24 22:00 Anion Gap 17.1 (5-19) 03/17/24 22:00 BUN 19 mg/dL (8-23) 03/17/24 22:00 Creatinine 0.7 mg/dL (0.5-0.9) 03/17/24 22:00 GFR Calculation Not Reportable 03/17/24 22:00 Glucose 142 mg/dL (65-115) H 03/17/24 22:00 Calculated Osmolality 281 mOsm/kg (285-295) L 03/17/24 22:00 Lactic Acid 1.3 mmol/L (0.5-2.2) 03/17/24 22:00 Calcium 9.0 mg/dL (8.5-10.5) 03/17/24 22:00 Total Bilirubin 0.5 mg/dL (0.15-1.2) 03/17/24 22:00 AST 24 U/L (0-32) 03/17/24 22:00 ALT 20 U/L (0-33) 03/17/24 22:00 Alkaline Phosphatase 62 U/L (35-105) 03/17/24 22:00 Troponin T Baseline 16 ng/L (0-10) H 03/17/24 22:00 Total Protein 6.4 g/dL (6.6-8.7) L 03/17/24 22:00 Albumin 3.6 g/dL (3.5-5.2) 03/17/24 22:00 Globulin 2.8 g/dL (1.3-4.6) 03/17/24 22:00 Lipase 18 U/L (13-60) 03/17/24 22:00 Urine Color Yellow (Yellow) 03/17/24 22:34 Urine Appearance Clear (CLEAR) 03/17/24 22:34 Urine pH 6.0 (5-7) 03/17/24:34 Ur Specific [place] 1.024 (1.005-1.030) 03/17/24 22:34 Urine Protein 1+ (Negative) A 03/17/24:34 Urine Glucose (UA) Negative (Normal) 03/17/24:34 Urine Ketones Trace (Negative) 03/17/24: Urine Blood 1+ (Negative) A 03/17/24:34 Urine Nitrate Negative (Negative) 03/17/24:34 Urine Bilirubin Negative (Negative) 03/17/24:34 Urine Urobilinogen 1.0 mg/dL (Negative) 03/17/24 22:34 Ur Leukocyte Esterase Negative (Negative) 03/17/24 22:34 Urine RBC 10-15 /hpf (0-2) H 03/17/24 22:34 Urine WBC 0-5 /hpf (0-5) 03/17/24 22:34 Ur Squamous Epith Cells 0-5 /hpf (0-5) 03/17/24 22:34 Amorphous Sediment Not Reportable 03/17/24 22:34 Urine Bacteria None seen /hpf (NONE) 03/17/24 22:34 Hyaline Casts 0.40 /lpf 03/17/24 22:34 Coronavirus (PCR) Negative (Negative) 03/17/24 22:10 Influenza A (PCR) Negative (Negative) 03/17/24 22:10 Influenza Type B (PCR) Negative (Negative) 03/17/24 22:10 RSV (PCR) Negative (Negative) 03/17/24 22:10 Group A Strep Rapid Negative (Negative) 03/17/24 22:10 All radiology interpretation(s) finalized by discharge EKG Data EKG 1: I personally reviewed and interpreted this EKG as follows: EKG interpretation date: 03/17/24 EKG interpretation time: 22:15 Interpretation: EKG shows a irregular rhythm at 74 bpm. Rhythm appears to be atrial fibrillation. No ST elevation or ectopy otherwise noted. Computer interpretation says nonspecific ST and T wave abnormality, abnormal rhythm EKG, atrial fibrillation, unconfirmed report. No prior exam was available for comparison at this time. Computer generated interpretation: Chest X-Ray 03/17/24 21:54 IMPRESSION: No acute cardiopulmonary abnormality. Abdomen/Pelvis CT 03/17/24 22:43 IMPRESSION: Cardiomegaly. Hiatal hernia. Fatty liver. Right renal cyst. Other surgical changes as described above. Correlate with the patient's clinical history. COMMENTS: Consistent with the [place] [employer]'s Incidental Findings Committee white paper (J Am Pao Radiol 2018): Any incidental renal lesion less than 1 cm or classified as too small to characterize, or any incidental cystic renal lesion characterized as simple-appearing, is likely benign. No follow-up imaging is recommended for these lesions per consensus recommendations based on imaging criteria. Discharge Plan Discharge Patient Disposition: Home Clinical Impression: Acute viral syndrome Condition: Stable Prescriptions: New ondansetron 4 mg tablet,disintegrating 4 mg PO Q8H PRN (Reason: nausea and vomiting) Qty: 10 0RF No Action biotin 10,000 mcg capsule 10,000 mcg PO QAM acetaminophen [Tylenol Extra Strength] 500 mg tablet 500 mg PO BEDTIME (DME) oxygen-air delivery systems Device See Rx Instructions .ROUTE .MEDSUPPLY Qty: 1 Rx Instructions: As directed prednisone 20 mg tablet 20 mg PO DAILY 8 Days Qty: 10 0RF Rx Instructions: days 1-3 take 2 tabs, days 4-6 take 1 tab, days 7 and 8 take half a tablet prednisone 1 mg tablet 4 mg PO DAILY Qty: 120 3RF prednisone 5 mg tablet 20 mg PO DAILY Qty: 60 6RF tramadol 50 mg tablet 50 mg PO TID PRN (Reason: pain) Qty: 60 0RF alendronate [Fosamax] 70 mg tablet 70 mg PO Q7D Qty: 12 3RF warfarin 5 mg tablet 5 mg PO DAILY Qty: 90 3RF Rx Instructions: Take one tab PO daily per recommended adjustments warfarin 1 mg tablet 1 mg PO DAILY Qty: 90 3RF furosemide 80 mg tablet See Rx Instructions .ROUTE .COMPLEX Qty: 135 3RF Dose Instruction: ALTERNATE FREQUENCY DAILY DIRECTED, TAKE 1 TABLET ONCE DAILY/1 TABLET TWO TIMES A DAY Rx Instructions: ALTERNATE FREQUENCY DAILY DIRECTED, TAKE 1 TABLET ONCE DAILY/1 TABLET TWO TIMES A DAY levothyroxine 75 mcg tablet 75 mcg PO DAILY Qty: 90 3RF metoprolol succinate 100 mg tablet extended release 24 hr 100 mg PO QAM Qty: 90 3RF spironolactone 25 mg tablet See Rx Instructions .ROUTE .COMPLEX Qty: 90 3RF Dose Instruction: TAKE 1 TABLET EVERY MORNING Rx Instructions: TAKE 1 TABLET EVERY MORNING trazodone 100 mg tablet See Rx Instructions .ROUTE .COMPLEX Qty: 90 3RF Dose Instruction: TAKE 1 TABLET AT BEDTIME Rx Instructions: TAKE 1 TABLET AT BEDTIME enoxaparin 80 mg/0.8 mL syringe 80 mg SUBCUT Q12H 5 Days Qty: 8 1RF cholecalciferol (vitamin D3) [Vitamin D3] 50 mcg (2,000 unit) Capsule 2,000 unit PO QPM triamcinolone acetonide 0.5 % cream 1 applic topical BID PRN (Reason: Rash) magnesium oxide 400 mg magnesium Tablet 400 mg PO QAM potassium chloride 20 mEq tablet extended release See Rx Instructions .ROUTE .COMPLEX Rx Instructions: Alternate frequency -take 1 tab (20meq) po once a day one day and the next day take one tab (20meq) bid (take with lasix) Discharge Orders: Discharge ED (Routine); Ordered 03/18/24 Ordered By: Jcarlos Ramirez Referrals: Yasmani Stout MD [Primary Care Provider] - Discharge Diet: Advance as tolerated Discharge Activity: Increase activity as tolerated Patient Instructions: Viral Syndrome (ED) Activity Restrictions/Additional Instructions: Use acetaminophen and ibuprofen as needed for pain and discomfort. Encourage plenty of fluids. Use ondansetron as needed for nausea and vomiting. Follow-up with primary care for further instructions. Return to ED for worsening symptoms. 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 [place] Fwd Documented by User: Sharif Otto DO 03/18/24 01:40 HPI - General Adult General: Chief complaint: Upper Respiratory Infection Stated complaint: FLU LIKE SYMPTOMS Time Seen by Provider: 03/17/24 21:38 Related Data Home Medications Medication Instructions Recorded Confirmed oxygen-air delivery systems ##1 03/05/19 03/05/24 acetaminophen 500 mg tablet 500 mg PO BEDTIME 05/21/20 03/05/24 (Tylenol Extra Strength) biotin 10,000 mcg capsule 10,000 mcg PO QAM 05/21/20 03/05/24 cholecalciferol (vitamin D3) 50 2,000 unit PO QPM 05/29/20 03/05/24 mcg (2,000 unit) capsule (Vitamin D3) magnesium oxide 400 mg PO QAM 04/25/23 03/05/24 potassium chloride 20 mEq See Rx Instructions .Route .COMPLEX 04/25/23 03/05/24 tablet,extended release triamcinolone acetonide 0.5 % 1 applic topical BID PRN Rash 04/25/23 03/05/24 topical cream Previous Rx's Medication Instructions Recorded tramadol 50 mg tablet 50 mg PO TID PRN pain #60 tabs 05/10/23 alendronate 70 mg tablet (Fosamax) 70 mg PO Q7D #12 tabs 05/31/23 prednisone 20 mg tablet 20 mg PO DAILY 8 days #10 tabs 10/25/23 warfarin 1 mg tablet 1 mg PO DAILY #90 tabs 12/29/23 warfarin 5 mg tablet 5 mg PO DAILY #90 tabs 12/29/23 furosemide 80 mg tablet See Rx Instructions .Route 02/26/24 .COMPLEX #135 tabs levothyroxine 75 mcg tablet 75 mcg PO DAILY #90 tabs 02/26/24 metoprolol succinate 100 mg 100 mg PO QAM #90 tabs 02/26/24 tablet,extended release 24 hr spironolactone 25 mg tablet See Rx Instructions .Route 02/26/24 .COMPLEX #90 tabs trazodone 100 mg tablet See Rx Instructions .Route 02/26/24 .COMPLEX #90 tabs prednisone 5 mg tablet 20 mg (4 x 5 mg) PO DAILY #60 tabs 02/27/24 prednisone 1 mg tablet 4 mg (4 x 1 mg) PO DAILY #120 tabs 03/05/24 enoxaparin 80 mg/0.8 mL 80 mg (0.8 mL) SUBCUT Q12H 5 days 03/12/24 subcutaneous syringe #8 mL ondansetron 4 mg disintegrating 4 mg PO Q8H PRN nausea and 03/18/24 tablet vomiting #10 tabs Allergies Allergy/AdvReac Type Severity Reaction Status Date / Time piroxicam [From Feldene] Allergy ALGY-Hives Verified 01/31/24 10:04 [facility] ED PFSH: Medical History Low back pain with right-sided sciatica Peripheral neuropathy Fibromyalgia Bronchitis Seronegative rheumatoid arthritis of both hands Inflammatory arthritis High risk medication use Immunization counseling Osteoarthritis of both hands Encounter for screening for other viral diseases Leg edema Chronic diastolic heart failure Chronic diastolic heart failure secondary to coronary artery disease Atypical chest pain Atrial fibrillation Pulmonary embolism SOB (shortness of breath) Trigger middle finger of left hand Osteoarthritis of CMC joint of thumb Episodic atrial fibrillation Pulmonary embolism Essential (primary) hypertension Surgical History Hip fracture, right Surgery at [place] - 2023 History of hysterectomy Hx of cataract surgery Family History Mother Myocardial infarct Cancer CAD (coronary artery disease) Father Heart disease CAD (coronary artery disease) Brother Cancer Family/Other Lung disease Denies family history of Diabetes Clotting disorder Dementia Chronic kidney disease (CKD) Suicide Anesthesia complication Bleeding disorder Stroke Social History Smoking and tobacco/nicotine status: never used tobacco/nicotine Quit status (tobacco/nicotine): has quit using Year quit tobacco: 1979 Alcohol intake: never Substance/Drug Use: never Lives independently: Yes Household members: none Current occupational status: retired Do you think of yourself as: Straight/Heterosexual Current gender identity: Female Course Vital Signs: Vital signs: Vital Signs Temperature 99.2 F 03/17/24 21:32 Pulse Rate 74 03/18/24 01:01 Respiratory Rate 16 03/17/24 21:32 Blood Pressure 128/61 03/18/24 01:01 Pulse Oximetry 95 03/18/24 01:01 Oxygen Delivery Me thod Room Air 03/17/24 22:30 MDM - General Adult Medical Decision Making 89-year-old female comes in today with illness since Monday. Patient reports it started with sore throat. Patient's had poor oral intake today and nausea with vomiting. Patient appears unwell but not toxic. Patient is scheduled to have a biopsy on Monday. Patient takes warfarin routinely because of atrial fibs and history of PE. Patient has been off her warfarin at this time for preparation of biopsy on Monday. Patient is alert and oriented. Abdomen soft nontender. Patient has 3 family members present that are very concerned about her health. Differential diagnosis pneumonia, viral syndrome, urinary tract infection, gastroenteritis. Laboratory values were unremarkable. Chest x-ray shows no pneumonia. CT of the abdomen pelvis was unremarkable. Patient was given 500 mL of fluid and Zofran. Encourage plenty of fluids. Talking with Dr. Stout in the morning regarding illness. Also discussed the use of the warfarin and if patient needs to have biopsy Monday. This patient was originally seen by LAYLA Saldana.? I agree with his history, evaluation, and treatment. Lab Data 03/17/24 22:00 03/17/24 22:00 Radiology Impressions Chest X-Ray 03/17/24 21:54 IMPRESSION: No acute cardiopulmonary abnormality. Abdomen/Pelvis CT 03/17/24 22:43 IMPRESSION: Cardiomegaly. Hiatal hernia. Fatty liver. Right renal cyst. Other surgical changes as described above. Correlate with the patient's clinical history. COMMENTS: Consistent with the [place] [employer]'s Incidental Findings Committee white paper (J Am Pao Radiol 2018): Any incidental renal lesion less than 1 cm or classified as too small to characterize, or any incidental cystic renal lesion characterized as simple-appearing, is likely benign. No follow-up imaging is recommended for these lesions per consensus recommendations based on imaging criteria. Laboratory Results WBC 6.55 10^3/uL (3.29-11.43) 03/17/24 22:00 RBC 3.50 10^6/uL (3.85-5.65) L 03/17/24 22:00 Hgb 10.70 g/dL (11.27-16.99) L 03/17/24 22:00 Hct 33.5 % (36-47) L 03/17/24 22:00 MCV 95.7 fl (85-98) 03/17/24 22:00 MCH 30.6 pg (27-33) 03/17/24 22:00 MCHC 31.9 g/dL (30-55) 03/17/24 22:00 RDW 14.8 % (12.1-15.1) 03/17/24 22:00 Plt Count 158 10^3/cmm (157-399) 03/17/24 22:00 MPV 9.8 fL (7.4-10.4) 03/17/24 22:00 Neut % (Auto) 75.4 % 03/17/24 22:00 Lymph % (Auto) 14.0 % 03/17/24 22:00 [place] % (Auto) 9.8 % 03/17/24 22:00 Eos % (Auto) 0.2 % 03/17/24 22:00 Baso % (Auto) 0.3 % 03/17/24 22:00 Neut # (Auto) 4.94 10^3/uL (1.8-7.7) 03/17/24 22:00 Lymph # (Auto) 0.9 10^3/uL (0.8-4.8) 03/17/24 22:00 [place] # (Auto) 0.6 10^3/uL (0.2-0.9) 03/17/24 22:00 Eos # (Auto) 0.0 10^3/uL (0.0-0.8) 03/17/24 22:00 Baso # (Auto) 0.0 10^3/uL (0.0-0.1) 03/17/24 22:00 Nucleated RBC % (auto) 0 % 03/17/24 22:00 Nucleated RBCs # 0.0 /100WBC 03/17/24 22:00 PT 17.00 SECONDS (12.1-14.9) H 03/17/24 22:00 INR 1.29 (0.8-1.2) H 03/17/24 22:00 Sodium 133 mmol/L (136-145) L 03/17/24 22:00 Potassium 4.1 mmol/L (3.5-5.1) 02/02/25 22:00 Chloride 98 mmol/L (98-107) 03/17/24 22:00 Carbon Dioxide 22 mmol/L (22-29) 03/17/24 22:00 Anion Gap 17.1 (5-19) 03/17/24 22:00 BUN 19 mg/dL (8-23) 03/17/24 22:00 Creatinine 0.7 mg/dL (0.5-0.9) 03/17/24 22:00 GFR Calculation Not Reportable 03/17/24 22:00 Glucose 142 mg/dL (65-115) H 03/17/24 22:00 Calculated Osmolality 281 mOsm/kg (285-295) L 03/17/24 22:00 Lactic Acid 1.3 mmol/L (0.5-2.2) 03/17/24 22:00 Calcium 9.0 mg/dL (8.5-10.5) 03/17/24 22:00 Total Bilirubin 0.5 mg/dL (0.15-1.2) 03/17/24 22:00 AST 24 U/L (0-32) 03/17/24 22:00 ALT 20 U/L (0-33) 03/17/24 22:00 Alkaline Phosphatase 62 U/L (35-105) 03/17/24 22:00 Troponin T Baseline 16 ng/L (0-10) H 03/17/24 22:00 Total Protein 6.4 g/dL (6.6-8.7) L 03/17/24 22:00 Albumin 3.6 g/dL (3.5-5.2) 03/17/24 22:00 Globulin 2.8 g/dL (1.3-4.6) 03/17/24 22:00 Lipase 18 U/L (13-60) 03/17/24 22:00 Urine Color Yellow (Yellow) 03/17/24:34 Urine Appearance Clear (CLEAR) 03/17/24: Urine pH 6.0 (5-7) 03/17/24: Ur Specific [place] 1.024 (1.005-1.030) 03/17/24 22:34 Urine Protein 1+ (Negative) A 03/17/24:34 Urine Glucose (UA) Negative (Normal) 02/02/25 22:34 Urine Ketones Trace (Negative) 03/17/24 22:34 Urine Blood 1+ (Negative) A 03/17/24 22:34 Urine Nitrate Negative (Negative) 03/17/24 22:34 Urine Bilirubin Negative (Negative) 03/17/24 22:34 Urine Urobilinogen 1.0 mg/dL (Negative) 03/17/24 22:34 Ur Leukocyte Esterase Negative (Negative) 03/17/24 22:34 Urine RBC 10-15 /hpf (0-2) H 03/17/24 22:34 Urine WBC 0-5 /hpf (0-5) 03/17/24 22:34 Ur Squamous Epith Cells 0-5 /hpf (0-5) 03/17/24 22:34 Amorphous Sediment Not Reportable 03/17/24 22:34 Urine Bacteria None seen /hpf (NONE) 03/17/24 22:34 Hyaline Casts 0.40 /lpf 03/17/24 22:34 Coronavirus (PCR) Negative (Negative) 03/17/24 22:10 Influenza A (PCR) Negative (Negative) 03/17/24 22:10 Influenza Type B (PCR) Negative (Negative) 03/17/24 22:10 RSV (PCR) Negative (Negative) 03/17/24 22:10 Group A Strep Rapid Negative (Negative) 03/17/24 22:10 EKG Data EKG 1: Computer generated interpretation: Chest X-Ray 03/17/24 21:54 IMPRESSION: No acute cardiopulmonary abnormality. Abdomen/Pelvis CT 03/17/24 22:43 IMPRESSION: Cardiomegaly. Hiatal hernia. Fatty liver. Right renal cyst. Other surgical changes as described above. Correlate with the patient's clinical history. COMMENTS: Consistent with the [place] [employer]'s Incidental Findings Committee white paper (J Am Pao Radiol 2018): Any incidental renal lesion less than 1 cm or classified as too small to characterize, or any incidental cystic renal lesion characterized as simple-appearing, is likely benign. No follow-up imaging is recommended for these lesions per consensus recommendations based on imaging criteria. Discharge Plan Discharge Patient Disposition: Home Clinical Impression: Acute viral syndrome Condition: Stable Prescriptions: New ondansetron 4 mg tablet,disintegrating 4 mg PO Q8H PRN (Reason: nausea and vomiting) Qty: 10 0RF No Action biotin 10,000 mcg capsule 10,000 mcg PO QAM acetaminophen [Tylenol Extra Strength] 500 mg tablet 500 mg PO BEDTIME (DME) oxygen-air delivery systems Device See Rx Instructions .ROUTE .MEDSUPPLY Qty: 1 Rx Instructions: As directed prednisone 20 mg tablet 20 mg PO DAILY 8 Days Qty: 10 0RF Rx Instructions: days 1-3 take 2 tabs, days 4-6 take 1 tab, days 7 and 8 take half a tablet prednisone 1 mg tablet 4 mg PO DAILY Qty: 120 3RF prednisone 5 mg tablet 20 mg PO DAILY Qty: 60 6RF tramadol 50 mg tablet 50 mg PO TID PRN (Reason: pain) Qty: 60 0RF alendronate [Fosamax] 70 mg tablet 70 mg PO Q7D Qty: 12 3RF warfarin 5 mg tablet 5 mg PO DAILY Qty: 90 3RF Rx Instructions: Take one tab PO daily per recommended adjustments warfarin 1 mg tablet 1 mg PO DAILY Qty: 90 3RF furosemide 80 mg tablet See Rx Instructions .ROUTE .COMPLEX Qty: 135 3RF Dose Instruction: ALTERNATE FREQUENCY DAILY DIRECTED, TAKE 1 TABLET ONCE DAILY/1 TABLET TWO TIMES A DAY Rx Instructions: ALTERNATE FREQUENCY DAILY DIRECTED, TAKE 1 TABLET ONCE DAILY/1 TABLET TWO TIMES A DAY levothyroxine 75 mcg tablet 75 mcg PO DAILY Qty: 90 3RF metoprolol succinate 100 mg tablet extended release 24 hr 100 mg PO QAM Qty: 90 3RF spironolactone 25 mg tablet See Rx Instructions .ROUTE .COMPLEX Qty: 90 3RF Dose Instruction: TAKE 1 TABLET EVERY MORNING Rx Instructions: TAKE 1 TABLET EVERY MORNING trazodone 100 mg tablet See Rx Instructions .ROUTE .COMPLEX Qty: 90 3RF Dose Instruction: TAKE 1 TABLET AT BEDTIME Rx Instructions: TAKE 1 TABLET AT BEDTIME enoxaparin 80 mg/0.8 mL syringe 80 mg SUBCUT Q12H 5 Days Qty: 8 1RF cholecalciferol (vitamin D3) [Vitamin D3] 50 mcg (2,000 unit) Capsule 2,000 unit PO QPM triamcinolone acetonide 0.5 % cream 1 applic topical BID PRN (Reason: Rash) magnesium oxide 400 mg magnesium Tablet 400 mg PO QAM potassium chloride 20 mEq tablet extended release See Rx Instructions .ROUTE .COMPLEX Rx Instructions: Alternate frequency -take 1 tab (20meq) po once a day one day and the next day take one tab (20meq) bid (take with lasix) Discharge Orders: Discharge ED (Routine); Ordered 03/18/24 Ordered By: Jcarlos Ramirez Referrals: Yasmani Stout MD [Primary Care Provider] - Discharge Diet: Advance as tolerated Discharge Activity: Increase activity as tolerated Patient Instructions: Viral Syndrome (ED) Activity Restrictions/Additional Instructions: Use acetaminophen and ibuprofen as needed for pain and discomfort. Encourage plenty of fluids. Use ondansetron as needed for nausea and vomiting. Follow-up with primary care for further instructions. Return to ED for worsening symptoms. 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
--- NOTE | 2024-03-17 22:04 | ECG_ITS ---
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 Measurements Intervals Holcomb Rate: 74 P: 0 MI: 0 QRS: 70 QRSD: 73 T: 71 QT: 383 QTc: 425 Interpretive Statements ATRIAL FIBRILLATION NONSPECIFIC ST & T-WAVE ABNORMALITY Compared to ECG 05/29/2020 10:09:48 T-wave abnormality now present Electronically Signed On 03-21-2024 22:10:07 SALES OFFICER by Abhi Chu M.D. [email or web address] [id number]
[2024-03-17 22:16] VITALS: BP 145/58; PULSE 82; O2SAT 91
[2024-03-17 22:20] LABS: Basophils % 0.3 %; Eosinophils % 0.2 %; Hematocrit 33.5 % (36-47); Lymphocytes # 0.9 10^3/uL (0.8-4.8); Mean Corpuscular HGB Conc 31.9 g/dL (30-55); Mean Corpuscular Hemoglobin 30.6 pg (27-33); Mean Corpuscular Volume 95.7 fl (85-98); Mean Platelet Volume 9.8 fL (7.4-10.4); Monocytes # 0.6 10^3/uL (0.2-0.9); Monocytes % 9.8 %; Neutrophils # 4.94 10^3/uL (1.8-7.7); Neutrophils % 75.4 %; Nucleated Red Blood Cells % 0 %; Platelet Count 158 10^3/cmm (157-399); Red Cell Distribution Width 14.8 % (12.1-15.1); White Blood Count 6.55 10^3/uL (3.29-11.43)
[2024-03-17 22:28] LABS: Rapid Strep A Test Negative (Negative)
[2024-03-17 22:30] VITALS: BP 122/55; PULSE 76; O2SAT 94
[2024-03-17 22:31] LABS: INR 1.29 (0.8-1.2)
[2024-03-17 22:34] LABS: Lactic Sepsis W/Reflex 1.3 mmol/L (0.5-2.2)
[2024-03-17 22:35] LABS: Alanine Aminotransferase 20 U/L (0-33); Albumin Level 3.6 g/dL (3.5-5.2); Alkaline Phosphatase 62 U/L (35-105); Anion Gap 17.1 (5-19); Aspartate Amino Transferase 24 U/L (0-32); Blood Urea Nitrogen 19 mg/dL (8-23); Carbon Dioxide 22 mmol/L (22-29); Chloride 98 mmol/L (98-107); Creatinine Clr Calc Pharmacy 53.4228; Globulin 2.8 g/dL (1.3-4.6); Glucose 142 mg/dL (65-115); Lipase 18 U/L (13-60); Osmolality Calculated 281 mOsm/kg (285-295); Potassium 4.1 mmol/L (3.5-5.1); Sodium 133 mmol/L (136-145); Total Bilirubin 0.5 mg/dL (0.15-1.2); Total Protein 6.4 g/dL (6.6-8.7)
[2024-03-17 22:42] LABS: Bilirubin Urine Negative (Negative); Blood Urine 1+ (Negative); Glucose Urine UA Negative (Normal); Ketones Urine Trace (Negative); Leukocyte Esterase Urine Negative (Negative); Nitrate Urine Negative (Negative); Protein Urine 1+ (Negative); Specific Gravity, Urine 1.024 (1.005-1.030); Urine Appearance Clear (CLEAR); Urine Color Yellow (Yellow)
--- NOTE | 2024-03-17 22:43 | CTR_ITS ---
PROCEDURE INFORMATION: Exam: CT Abdomen And Pelvis With Contrast Exam date and time: 03/17/2024 11:10 PM Age: 89 years old Clinical indication: Nausea and vomiting; Abdominal pain; Generalized; Prior surgery; Surgery date: 6+ months; Surgery type: Hysterectomy. RT hip; C/O diffuse abd pain with n/v. ; Additional info: Abd pain, n/v TECHNIQUE: Imaging protocol: Computed tomography of the abdomen and pelvis with contrast. Radiation optimization: All CT scans at this facility use at least one of these dose optimization techniques: automated exposure control; mA and/or kV adjustment per patient size (includes targeted exams where dose is matched to clinical indication); or iterative reconstruction. Contrast material: OMNI 350; Contrast volume: 100 ml; Contrast route: INTRAVENOUS (IV); COMPARISON: CR XR hip RT 2-3V wo/w pel* [id number] 01/31/2024 9:52 AM RADIATION DOSE METRICS: Total DLP (mGy-cm): 611.13 FINDINGS: Lungs: Atelectasis and linear scarring at the lung bases. Heart: Cardiomegaly with coronary artery and valvular calcifications. Diaphragm: There is a small hiatal hernia. Liver: There is diffuse low attenuation throughout the liver consistent with fatty infiltration. No masses. Gallbladder and biliary ducts: Normal. No calcified stones. No ductal dilation. Pancreas: Normal. No ductal dilation. Spleen: Normal. No splenomegaly. Adrenal glands: Normal. No mass. Kidneys and ureters: There is a 1.9 cm cyst in the right kidney. The left kidney is normal. No stones or obstructive uropathy. Stomach and bowel: Unremarkable. No obstruction. No mucosal thickening. Appendix: No evidence of appendicitis. Intraperitoneal space: Unremarkable. No free air. No significant fluid collection. Vasculature: There is severe aortoiliac atherosclerosis. Lymph nodes: Unremarkable. No enlarged lymph nodes. Urinary bladder: Unremarkable as visualized. Reproductive: The patient has had a hysterectomy. Bones/joints: There is fixation hardware in the right femur which appears intact. Soft tissues: Unremarkable. CT/CT abdomen pelvis w con* [id number] IMPRESSION: Cardiomegaly. Hiatal hernia. Fatty liver. Right renal cyst. Other surgical changes as described above. Correlate with the patient's clinical history. COMMENTS: Consistent with the [employer]'s Incidental Findings Committee white paper (J Am Pao Radiol 2018): Any incidental renal lesion less than 1 cm or classified as too small to characterize, or any incidental cystic renal lesion characterized as simple-appearing, is likely benign. No follow-up imaging is recommended for these lesions per consensus recommendations based on imaging criteria.
[2024-03-17 22:45] LABS: Add Urine Microscopic? YES; Bacteria Urine None Seen /hpf; Squamous Epithelial Cell Urine 0-5 /hpf (0-5); Universal Test for UA Present (0); WBC Urine 0-5 /hpf (0-5)
[2024-03-17] MEDS: sodium chloride 0.9% 500 ML 999 ML IV (22:48)
[2024-03-17] MEDS: ondansetron 2 mg/ML SDV 2 mL 4 MG IVP (22:51)
[2024-03-17 22:58] LABS: Covid PCR NEGATIVE (Negative); Influenza A NEGATIVE (Negative); Influenza B NEGATIVE (Negative); Respiratory Syncytial Virus Ce NEGATIVE (Negative)
[2024-03-17] MEDS: iohexol 350 mg/mL 500 mL Btl (per mL) IV (23:11)
[2024-03-18 00:17] LABS: Troponin(5th) Baseline 16 ng/L (0-10)
[2024-03-18] MEDS: ondansetron 2 mg/ML SDV 2 mL 4 MG IVP (00:32)
[2024-03-18] MEDS: ondansetron 4 MG Tablet PO (00:43)
[2024-03-18 01:01] VITALS: BP 128/61; PULSE 74; O2SAT 95
== END 2024-03-18 01:00 | disposition home or self-care (01) ==
PROVIDERS: Emergency Provider Nurse Practitioner Family; PCP Family Medicine
DX: B34.9 Viral infection, unspecified (principal); Z11.52 Encounter for screening for COVID-19; Z79.01 Long term (current) use of anticoagulants; Z87.891 Personal history of nicotine dependence; I11.0 Hypertensive heart disease with heart failure; I50.32 Chronic diastolic (congestive) heart failure
CPT/HCPCS: 51701; 71045; 74177; 80053; 81001; 83605; 83690; 84484; 85025; 85610; 87081; 87637; 87880; 93005; 96374; 96376; 99285; J2405; J7040; Q0162

== ENCOUNTER → 2024-04-01 09:26 | Outpatient (BNVA) | payer MEDICARE, OTHER, SELFPAY | PROVIDERS: PCP Family Medicine; Visit Provider Family Medicine | DX: I48.91 Unspecified atrial fibrillation (principal) | CPT/HCPCS: 85610 ==

== ENCOUNTER → 2024-04-04 15:23 | Outpatient (BNVA) | payer MEDICARE, OTHER, SELFPAY | PROVIDERS: PCP Family Medicine; Visit Provider Family Medicine | DX: Z79.01 Long term (current) use of anticoagulants (principal) | CPT/HCPCS: 85610 ==

== ENCOUNTER → 2024-04-08 09:20 | Outpatient (BNVA) | payer MEDICARE, OTHER, SELFPAY | PROVIDERS: PCP Family Medicine; Visit Provider Family Medicine | DX: I48.91 Unspecified atrial fibrillation (principal) | CPT/HCPCS: 85610 ==

== ENCOUNTER → 2024-05-01 08:54 | Outpatient (BNVA) | payer MEDICARE, OTHER, SELFPAY | PROVIDERS: PCP Family Medicine; Visit Provider Nurse Practitioner Family | DX: I50.32 Chronic diastolic (congestive) heart failure (principal); I25.10 Atherosclerotic heart disease of native coronary artery without angina pectoris; I48.0 Paroxysmal atrial fibrillation | CPT/HCPCS: 99214 ==

== ENCOUNTER 2024-05-09 09:37 | Outpatient (CLI) | payer MEDICARE, OTHER, SELFPAY ==
[2024-05-09 09:45] VITALS: BMI 27.3
--- NOTE | 2024-05-09 09:45 | ECG_ITS ---
[facility]: 2024-05-09 Pat Name: Sana Murrell Department: Room: Gender: Female Ripper Operator: : 1935 Requested By: Emily Plascencia Order Number: [id number] Lalit MD: KRISS LEE Interpretive Statements Lung unchanged pre/post procedure; Intraprocedure shortess of breath; Symptoms resoled by discharge NOTE: Please note that this is the electrocardiogram portion of the Lexiscan/Sestamibi stress test. The perfusion scan will be documented separately. DATA: Baseline heart rate was 54 beats per minute. Baseline blood pressure was 166/67 millimeters of mercury. Target heart rate was 132. Maximum heart rate achieved was 81. which was 61 % of the predicted target heart rate. Maximum blood pressure was 166/67 millimeters of mercury. The reason for ending the test was completion of the protocol. The patient did not experience any symptoms. ELECTROCARDIOGRAM: BASELINE: Sinus bradycardia. Normal axis. Otherwise, no ST-T changes suggestive of ischemia noted. No arrhythmia noted. EXERCISE: After Lexiscan injection, no ST-T changes suggestive of ischemic noted. No arrhythmia noted. CONCLUSION: Please note due to baseline abnormality of the EKG specificity and sensitivity of the EKG portion of LexiScan MIBI stress test will be low 1. EKG not suggestive of ischemia 2. Lexiscan injection unremarkable. 3. Perfusion scan will be documented separately. Electronically Signed On 05-27-2024 20:10:03 CDT by KRISS LEE [email or web address] [id number]
--- NOTE | 2024-05-09 09:46 | NMCV_ITS ---
NM lilian perf SPECT r/s* [id number] Sana Murrell Age: 89 Gender: F : 1935 Exam Date: 05/09/2024 09:46 Ordering Phys: Emily Plascencia NP Technologist: DEEDEE Huerta Exam Location: [facility] [place] Indications: cp STRESS TEST Please see separate stress test report in [facility] for full findings IMAGE PROTOCOL Rest/Stress 1 Lexiscan Day Radiopharmaceutical Dose (mCi) Administration Site Administered by Rest: Tc-99m 10.6 IV Lu Kilgore, REFRACTORY TECHNICIAN Sestamibi Stress:Tc-99m 32.6 IV Lu Burciagagle, REFRACTORY TECHNICIAN Sestamibi Rest: 09-May-2024 60 Discovery 630 Stress: 09-May-2024 30 Discovery 630 0.4mg Lexiscan. Supine position only as patient was unable to lay prone. SPECT RESULTS Technical Quality: Good Raw Data Analysis: Normal Image Corrections: No attenuation or motion correction applied Summed Stress Score: 0 Summed Rest Score: 0 Summed Difference Score: 0 PERFUSION FINDINGS SPECT images demonstrate homogeneous tracer distribution throughout the myocardium. FUNCTIONAL RESULTS (calculated via Gated SPECT) Stress Image LV EF (%): 79 Stress EDV (mL):76 TID: 1.08 Stress ESV (mL):16 FUNCTIONAL FINDINGS: There is normal left ventricular systolic function. IMPRESSIONS 1. Normal myocardial perfusion imaging with no evidence of ischemia. 2. LV systolic function is normal Abhi Chu MD (Electronically Signed) Final Date: 09 May 2024 12:12 S
[2024-05-09] MEDS: regadenoson 0.4 Mg/5 ml Syringe IVP (11:10)
[2024-05-09 11:26] VITALS: BP 150/46; PULSE 71
--- NOTE | 2024-05-09 14:15 | USCV_ITS ---
Sana Murrell Age: 89 Gender: F : 1935 Exam Date: 05/09/2024 12:26 Ordering Phys: Emily Plascencia NP Technologist: [place] [facility] [place]ication: cp BP: 120 / 70 HR: 61 Rhythm: Sinus Technical Quality: Adequate MEASUREMENTS (Male / Female) Normal Values 2D ECHO LV Diastolic Diameter PLAX 4.7 cm 4.2 - 5.9 / 3.9 - 5.3 cm IVS Diastolic Thickness 1.2 cm 0.6 - 1.0 / 0.6 - 0.9 cm IVS Systolic Thickness 1.3 cm LVPW Diastolic Thickness 1.1 cm 0.6 - 1.0 / 0.6 - 0.9 cm LVPW Systolic Thickness 1.7 cm LVOT Diameter 2.0 cm LV Ejection Fraction 2D Teich 63.6 % LV Ejection Fraction MOD 4C 60.4 % LV Ejection Fraction MOD 2C 55.8 % LV Ejection Fraction 2C AL 56.8 % LA Diameter 5.2 cm RA Systolic Volume 4C AL 55.2 ml RA Systolic Volume 4C MOD 53.1 ml LA Sys Volume AL 112.3 cm cubed LA Sys Volume Index AL 57.5 cm cubed/m squared Aorta at Sinotubular Diameter 2.7 cm M-MODE LA Ao Ratio MM 1.5 AV Cusp Separation MM 2.0 cm DOPPLER AV Peak Velocity 82.0 cm/s LVOT Peak Velocity 74.0 cm/s AV Area Cont Eq vti 3.3 cm squared AV Area Cont Eq pk 2.8 cm squared MV Peak Velocity 140.0 cm/s MV Area PHT 4.3 cm squared Mitral E to A Ratio 3.1 TR Peak Velocity 290.0 cm/s TR Peak Gradient 33.6 mmHg TV Peak E Velocity 140.0 cm/s PV Peak Velocity 82.0 cm/s FINDINGS Left Ventricle Normal left ventricular size and systolic function, EF 56%. No regional wall motion abnormalities. Mild left ventricular hypertrophy. Right Ventricle Normal right ventricular size and systolic function. Horizontal apical densities in the right ventricle may suggest a moderator band Right Atrium Moderately increased right atrial size. Left Atrium Severely increased left atrial volume with a systolic volume index of 57 ml/m squared. Mitral Valve Mild-moderate mitral valve regurgitation. Aortic Valve No gross abnormalities noted Tricuspid Valve Moderate tricuspid valve regurgitation. Pulmonic Valve Pulmonic valve not well visualized. Pericardium Normal pericardium without effusion. Aorta Normal ascending aorta dimension. IVC Inferior vena cava not visualized. CONCLUSIONS Normal left ventricular size and systolic function, EF 56%. No regional wall motion abnormalities. Mild left ventricular hypertrophy. Normal right ventricular size and systolic function. Horizontal apical densities in the right ventricle may suggest a moderator band. Moderately increased right atrial size. Severely increased left atrial volume with a systolic volume index of 57 ml/m squared. Mild-moderate mitral valve regurgitation. Moderate tricuspid valve regurgitation. There is no pericardial effusion. There are no intracardiac masses. compared to the study from 07/15/2020, there may not be a significant change Dr Josephine Rodgers MD FACC (Electronically Signed) Final Date: 10 May 2024 12:21 S
== END 2024-05-09 09:38 | disposition home or self-care (01) ==
PROVIDERS: PCP Family Medicine; Visit Provider Nurse Practitioner Family
DX: I50.32 Chronic diastolic (congestive) heart failure (principal); I25.10 Atherosclerotic heart disease of native coronary artery without angina pectoris; R93.1 Abnormal findings on diagnostic imaging of heart and coronary circulation; I34.0 Nonrheumatic mitral (valve) insufficiency; I07.1 Rheumatic tricuspid insufficiency
CPT/HCPCS: 36415; 78452; 93017; 93306; 96374; A9500; J2785

== ENCOUNTER 2024-05-13 13:30 | Oncology outpatient (recurring) (ONCR) | payer MEDICARE, OTHER, SELFPAY ==
[2024-04-17 08:41] LABS: Basophils % 0.4 %; Eosinophils # 0.1 10^3/uL (0.0-0.8); Eosinophils % 1.7 %; Lymphocytes # 2.6 10^3/uL (0.8-4.8); Mean Corpuscular HGB Conc 32.5 g/dL (30-55); Mean Corpuscular Hemoglobin 31.3 pg (27-33); Mean Corpuscular Volume 96.3 fl (85-98); Mean Platelet Volume 9.3 fL (7.4-10.4); Monocytes # 0.7 10^3/uL (0.2-0.9); Neutrophils % 53.6 %; Nucleated Red Blood Cells % 0 %; Platelet Count 227 10^3/cmm (157-399); Red Blood Count 3.74 10^6/uL (3.85-5.65); Red Cell Distribution Width 14.7 % (12.1-15.1); White Blood Count 7.46 10^3/uL (3.29-11.43)
[2024-04-17 09:05] LABS: Alanine Aminotransferase 10 U/L (0-33); Albumin Level 4.1 g/dL (3.5-5.2); Alkaline Phosphatase 58 U/L (35-105); Aspartate Amino Transferase 14 U/L (0-32); Blood Urea Nitrogen 22 mg/dL (8-23); Calcium 9.6 mg/dL (8.5-10.5); Carbon Dioxide 26 mmol/L (22-29); Chloride 99 mmol/L (98-107); Globulin 3.1 g/dL (1.3-4.6); Glucose 106 mg/dL (65-115); Osmolality Calculated 288 mOsm/kg (285-295); Sodium 137 mmol/L (136-145); Total Bilirubin 0.4 mg/dL (0.15-1.2); Total Protein 7.2 g/dL (6.6-8.7)
[2024-05-13 14:00] LABS: Basophils % 0.5 %; Eosinophils % 0.3 %; Hematocrit 35.9 % (36-47); Lymphocytes # 1.7 10^3/uL (0.8-4.8); Lymphocytes % 22.9 %; Mean Corpuscular HGB Conc 32.3 g/dL (30-55); Mean Corpuscular Hemoglobin 30.9 pg (27-33); Mean Corpuscular Volume 95.5 fl (85-98); Mean Platelet Volume 9.6 fL (7.4-10.4); Monocytes # 0.3 10^3/uL (0.2-0.9); Monocytes % 4.5 %; Neutrophils # 5.22 10^3/uL (1.8-7.7); Neutrophils % 71.7 %; Nucleated Red Blood Cells % 0 %; Platelet Count 220 10^3/cmm (157-399); Red Blood Count 3.76 10^6/uL (3.85-5.65); Red Cell Distribution Width 14.7 % (12.1-15.1); White Blood Count 7.29 10^3/uL (3.29-11.43)
[2024-05-13 14:32] LABS: Alanine Aminotransferase 10 U/L (0-33); Albumin Level 4.2 g/dL (3.5-5.2); Alkaline Phosphatase 64 U/L (35-105); Anion Gap 15.5 (5-19); Aspartate Amino Transferase 15 U/L (0-32); Blood Urea Nitrogen 22 mg/dL (8-23); CA 15-3 19.9 U/mL (0-25); Calcium 9.6 mg/dL (8.5-10.5); Carbon Dioxide 26 mmol/L (22-29); Chloride 98 mmol/L (98-107); Globulin 2.9 g/dL (1.3-4.6); Glucose 149 mg/dL (65-115); Osmolality Calculated 286 mOsm/kg (285-295); Potassium 4.5 mmol/L (3.5-5.1); Sodium 135 mmol/L (136-145); Total Bilirubin 0.3 mg/dL (0.15-1.2); Total Protein 7.1 g/dL (6.6-8.7)
== END 2024-05-13 23:59 | disposition home or self-care (01) ==
PROVIDERS: Nurse Practitioner; PCP Family Medicine; Visit Provider Internal Medicine Medical Oncology
DX: Z53.9 Procedure and treatment not carried out, unspecified reason; C50.912 Malignant neoplasm of unspecified site of left female breast; Z17.0 Estrogen receptor positive status [ER+]; Z87.891 Personal history of nicotine dependence; Z79.811 Long term (current) use of aromatase inhibitors
CPT/HCPCS: 36415; 80053; 85025; 85610; 86300; 99205; 99214

== ENCOUNTER → 2024-06-12 11:13 | Outpatient (BNVA) | payer MEDICARE, OTHER, SELFPAY | PROVIDERS: PCP Family Medicine; Visit Provider Family Medicine | DX: I48.91 Unspecified atrial fibrillation (principal) | CPT/HCPCS: 85610 ==

== ENCOUNTER → 2024-06-17 07:53 | Outpatient (BNVA) | payer MEDICARE, OTHER, SELFPAY | PROVIDERS: PCP Family Medicine; Visit Provider Family Medicine | DX: I48.91 Unspecified atrial fibrillation (principal) | CPT/HCPCS: 85610 ==

== ENCOUNTER → 2024-06-26 08:38 | Outpatient (BNVA) | payer MEDICARE, OTHER, SELFPAY | PROVIDERS: PCP Family Medicine; Visit Provider Family Medicine | DX: I48.91 Unspecified atrial fibrillation (principal) | CPT/HCPCS: 85610 ==

== ENCOUNTER → 2024-07-04 08:44 | Outpatient (BNVA) | payer MEDICARE, OTHER, SELFPAY | PROVIDERS: PCP Family Medicine; Visit Provider Family Medicine | DX: I48.91 Unspecified atrial fibrillation (principal) | CPT/HCPCS: 85610 ==

== ENCOUNTER 2024-07-12 22:11 | Emergency (ER) | payer MEDICARE, OTHER, SELFPAY ==
[2024-07-12 22:19] VITALS: BP 159/80; PULSE 100; RESP 22; TEMP 37.2; O2SAT 99; BMI 25.0
--- NOTE | 2024-07-12 22:19 | ECG_ITS ---
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 Measurements Intervals Fisher Rate: 74 P: 0 NC: 0 QRS: 32 QRSD: 77 T: 28 QT: 374 QTc: 416 Interpretive Statements ATRIAL FIBRILLATION NONSPECIFIC ST & T-WAVE ABNORMALITY Compared to ECG 03/17/2024 22:04:22 No significant changes Electronically Signed On 07-16-2024 11:44:23 CDT by Abhi Cuh M.D. [email or web address] [id number]
--- NOTE | 2024-07-12 22:20 | CTR_ITS ---
PROCEDURE INFORMATION: Exam: CTA Chest With Contrast Exam date and time: 07/12/2024 10:52 PM Age: 89 years old Clinical indication: Dyspnea and shortness of breath; C/O SOB with dypsnea and hypoxia. On anticoagulants due to history of pulmonary embolism. Recent diagnosis of left breast cancer. ; Additional info: Dyspnea with hypoxia h/o pulm embolism being currently tx fr TECHNIQUE: Imaging protocol: Computed tomographic angiography of the chest with contrast. Exam focused on the arteries. 3D rendering (Not supervised by radiologist): MIP and/or 3D reconstructed images were created by the technologist. Radiation optimization: All CT scans at this facility use at least one of these dose optimization techniques: automated exposure control; mA and/or kV adjustment per patient size (includes targeted exams where dose is matched to clinical indication); or iterative reconstruction. Contrast material: OMNI 350; Contrast volume: 66 ml; Contrast route: INTRAVENOUS (IV); COMPARISON: CT angio chest PE protcl [id number] 02/09/2018 4:50 PM RADIATION DOSE METRICS: Total DLP (mGy-cm): 366.42 FINDINGS: Pulmonary arteries: No visualized pulmonary thromboembolus. Good contrast bolus timing. Aorta: Unremarkable. No aortic aneurysm. No aortic dissection. Lungs: Diffuse bilateral lung mosaic attenuation/patchy infiltrate. Bilateral smooth interlobular septal thickening. Cluster of nodules within the posterosuperior right lower lobe, largest measuring 9 mm. Pleural spaces: Unremarkable. No pneumothorax. No pleural effusion. Heart: Cardiomegaly. Moderate to severe calcified coronary artery atherosclerosis. No large volume pericardial effusion. Lymph nodes: Unremarkable. No enlarged lymph nodes. Bones/joints: Mild thoracic spondylosis. No acute osseous abnormality. Soft tissues: Unremarkable. Other findings: Right hilar angela conglomerate measuring 13 mm short axis on axial imaging. CT/CT angio chest PE protcl [id number] IMPRESSION: 1. No visualized pulmonary thromboembolus. 2. CHF with pulmonary edema. 3. Mild right hilar adenopathy. 4. Cluster of nodules within the posterosuperior right lower lobe, largest measuring 9 mm.
--- NOTE | 2024-07-12 22:23 | ED_ITS ---
HPI - SOB/Dyspnea 2 General: Chief Complaint: Shortness of Breath/Dyspnea Stated Complaint: SOB Time Seen by Provider: 07/12/24 22:11 History of Present Illness: HPI Narrative: 89-year-old female presents to the ER by EMS chief complaint of shortness of breath and reported fever prior to arrival patient apparently went and got her first immunotherapy or chemotherapy type treatment earlier today for breast cancer left breast recent diagnosis last month or 2 patient does appear to be a somewhat poor historian she endorses no recent chemo but some form of treatment. Patient apparently per EMS was found to be quite hypoxic requiring 10 L nasal cannula to mean saturations in the high 90s and with without issue goes down to the 80s, the patient does endorse a history of pulmonary embolism that she is on warfarin for. Patient does denies any current palpitations or chest pain reports no recent swelling in her legs. Patient does report generalized malaise and fatigue with myalgias arthralgias status post therapy today. The patient presents by EMS for further assessment and management. Associated symptoms: Deny abdominal pain, chest pain, extremity pain, fever(s), nausea, palpitations or vomiting Related Data Home Medications ?Medication ?Instructions ?Recorded ?Confirmed oxygen-air delivery systems ##1 03/05/19 05/13/24 acetaminophen 500 mg tablet 500 mg PO BEDTIME 05/21/20 05/13/24 (Tylenol Extra Strength) biotin 10,000 mcg capsule 10,000 mcg PO QAM 05/21/20 0 05/13/24 cholecalciferol (vitamin D3) 50 2,000 unit PO QPM 05/1405/13/24 mcg (2,000 unit) capsule (Vitamin D3) magnesium oxide 400 mg PO QAM 04/25/2305/13 potassium chloride 20 mEq See Rx Instructions .Route . COMPLEX 04/25/23 05/13/24 tablet,extended release triamcinolone acetonide 0.5 % 1 applic topical BID PRN Rash 04/25/23 05/13/24 topical cream Previous Rx's ?Medication ?Instructions ?Recorded tramadol 50 mg tablet 50 mg PO TID PRN pain #60 ta bs 05/10/23 prednisone 20 mg tablet 20 mg PO DAILY 8 days #10 ta bs 10/25/23 furosemide 80 mg tablet See Rx Instructions .Route 0 02/26/24 .COMPLEX #135 tabs levothyroxine 75 mcg tablet 75 mcg PO DAILY #90 tabs 0 02/26/24 metoprolol succinate 100 mg 100 mg PO QAM #90 tabs tablet,extended release 24 hr spironolactone 25 mg tablet See Rx Instructions .Route 02/26/24 .COMPLEX #90 tabs trazodone 100 mg tablet See Rx Instructions .Route 0 02/26/24 .COMPLEX #90 tabs prednisone 1 mg tablet 4 mg (4 x 1 mg) PO DAILY #12 0 tabs 03/05/24 ondansetron 4 mg disintegrating 4 mg PO Q8H PRN nausea and 03/18/24 tablet vomiting #10 tabs prednisone 20 mg tablet 20 mg PO DAILY #7 tabs 03/20 alendronate 70 mg tablet (Fosamax) 70 mg PO Q7D #12 ta bs 05/14/24 prednisone 5 mg tablet 20 mg (4 x 5 mg) PO DAILY #6 0 tabs 05/14/24 warfarin 1 mg tablet 1 mg PO DAILY #90 tabs 05/14 warfarin 5 mg tablet 5 mg PO DAILY #90 tabs 05/14 anastrozole 1 mg tablet (Arimidex) 1 mg PO DAILY #90 t abs 05/27/24 apixaban 5 mg tablet (Eliquis) 5 mg PO BID #30 tabs Allergies Allergy/AdvReac Type Severity Reaction Status Date / Time piroxicam (From [employer]) Allergy ALGY-Hives Verified 05/13/24 13:59 Review of Systems 2 General: Reports: 10 or more systems reviewed and unremarkable except in HPI and below Const: Denies: fever(s), chills, fatigue or malaise Eyes: Denies: change in vision or blurry vision Card: Denies: chest pain or palpitations Resp: Reports: dyspnea; Denies: productive cough GI: Denies: abdominal pain, nausea or vomiting : Denies: flank pain Musc: Denies: extremity pain or extremity swelling Skin/Breast: Denies: rash or pruritus Neuro: Denies: headache(s) Psych: Denies: anxiety or depression Sloan/Lymph: Denies: easy bleeding All/Imm: Denies: urticaria, throat swelling or facial swelling PFSH ED 2 PFSH: Medical History Low back pain with right-sided sciatica Peripheral neuropathy Fibromyalgia Bronchitis Seronegative rheumatoid arthritis of both hands Inflammatory arthritis High risk medication use Immunization counseling Osteoarthritis of both hands Encounter for screening for other viral diseases Leg edema Chronic diastolic heart failure Chronic diastolic heart failure secondary to coronary artery disease Atypical chest pain Atrial fibrillation Pulmonary embolism SOB (shortness of breath) Trigger middle finger of left hand Osteoarthritis of CMC joint of thumb Episodic atrial fibrillation Pulmonary embolism Essential (primary) hypertension Surgical History Hip fracture, right Surgery at [facility] - 2023 History of hysterectomy Hx of cataract surgery Family History Mother Myocardial infarct Cancer CAD (coronary artery disease) Father Heart disease CAD (coronary artery disease) Brother Cancer Family/Other Lung disease Denies family history of Diabetes Clotting disorder Dementia Chronic kidney disease (CKD) Suicide Anesthesia complication Bleeding disorder Stroke Social History Smoking and tobacco/nicotine status: former use of tobacco/nicotine Quit status (tobacco/nicotine): has quit using Year quit tobacco: 1979 Alcohol intake: never Substance/Drug Use: never Lives independently: Yes Household members: none Current occupational status: retired Do you think of yourself as: Straight/Heterosexual Current gender identity: Female Physical Exam 2 Const: COMMON NORMALS: no acute distress, patient oriented x3 and healthy appearing HENMT: COMMON NORMALS: normocephalic and atraumatic HEAD & SCALP: n ormocephalic and atraumatic Eye: COMMON NORMALS: Equal, round and reactive pupils present and EOMs intact bilaterally PUPIL: Yes Equal, round and reactive pupils present Neck/C-Spine: COMMON NORMALS: full ROM, supple and no JVD Lymph: LYMPHATIC: no lymphadenopathy noted Chest: COMMONS NORMALS: normal inspection of the chest and normal palpation of entire chest wall Resp: COMMON NORMALS: clear to auscultation bilaterally; negative for normal respiratory effort (Diminished presence appreciate bilaterally questionable scant wheeze apprec) and negative for No retractions EFFORT & INSPECTION: Yes able to speak in complete sentences and Yes symmetric chest movement AUSCULTATION: clear to auscultation bilaterally OTHER: Moderate respiratory splinting noted on exam patient is quite tachypneic with hypoventilation noted with scant expiratory wheeze appreciated Cardio: COMMON NORMALS: no JVD and regular rate; negative for regular rhythm (Mild tachycardia appreciated in low 100s) RATE: regular rate RHYTHM: abnormal rhythm (Mild tachycardia appreciated in low 100s) GI: COMMON NORMALS: Normal to inspection, nondistended, normoactive bowel sounds present, Soft to palpation and non-tender INSPECTION: Yes normal to inspection PALPATION: Yes Soft to palpation : COMMON NORMALS: Yes no CVA tenderness BLADDER/KIDNEY EXAM: Yes no CVA tenderness Back/Pelvis: COMMON NORMALS: no CVA tenderness Extremity: COMMON NORMALS: normal to inspection and full ROM Neuro: COMMON NORMALS: patient oriented x3, CN's II-XII intact bilaterally, moves all extremities and no focal motor deficits Psych: COMMON NORMALS: mental status grossly normal, Normal thought process present, cooperative and normal affect THOUGHT PROCESS: Normal thought process present Skin: COMMON NORMALS: no rashes or lesions noted GENERAL SKIN EXAM: no rashes or lesions noted Course 2 Vital Signs: Vital signs: Vital Signs Temperature 99 F 07/12/24 22:19 Pulse Rate 82 07/13/24 01:03 Respiratory Rate 35 H 07/13/24 01:03 Blood Pressure 139/55 07/13/24 01:03 Pulse Oximetry 97 07/13/24 01:03 Oxygen Delivery Me thod Nasal Cannula 07/13/24 01:03 Oxygen Flow Rate 4 07/13/24 01:03 MDM - SOB/Dyspnea Medical Decision Making Due to patient's symptoms and condition IV established basic lab work and imaging will be obtained we will continue to follow. The patient's cardiac enzymes have been progressive getting elevated it is unclear whether or not this is due to the immunotherapy that she was provided earlier today we will be treating her for NSTEMI 2. Otherwise discussed patient's case over [facility]'s patient request requested to be transferred back over there patient was found to be in congestive heart failure on her CTA in which it was noted further that the patient was not provided Lasix earlier today patient's heart enzymes are grossly elevated discussed patient's case with Dr. Gallego hospitalist of [facility] is granted acceptance currently waiting on bed availability then ground transportation patient was started on a heparin drip due to her elevation in enzymes being conservative is unclear whether or not patient had a NSTEMI due to the immunotherapy or immunotherapy because this patient has no renal impairment patient remains in stable condition at this time Lab Data 07/12/24 22:34 07/12/24 22:34 Labs/Radiology: Radiology Impressions Chest CTA 07/12/24 22:20 IMPRESSION: 1. No visualized pulmonary thromboembolus. 2. CHF with pulmonary edema. 3. Mild right hilar adenopathy. 4. Cluster of nodules within the posterosuperior right lower lobe, largest measuring 9 mm. Laboratory Results WBC 11.26 10^3/uL (3.29-11.43) 07/12/24 22:34 RBC 3.81 10^6/uL (3.85-5.65) L 07/12/24 22:34 Hgb 11.70 g/dL (11.27-16.99) 07/12/24 22:34 Hct 36.3 % (36-47) 07/12/24 22:34 MCV 95.3 fl (85-98) 07/12/24 22:34 MCH 30.7 pg (27-33) 07/12/24 22: MCHC 32.2 g/dL (30-55) 07/12/24 22:34 RDW 14.5 % (12.1-15.1) 07/12/24 22:34 Plt Count 200 10^3/cmm (157-399) 07/12/24 22:34 MPV 9.8 fL (7.4-10.4) 07/12/24 22:34 Neut % (Auto) 93.1 % 07/12/24 22:34 Lymph % (Auto) 3.2 % 07/12/24 22:34 [place] % (Auto) 2.8 % 07/12/24 22:34 Eos % (Auto) 0.3 % 07/12/24 22:34 Baso % (Auto) 0.3 % 07/12/24 22:34 Neut # (Auto) 10.49 10^3/uL (1.8-7.7) H 07/12/24 22:34 Lymph # (Auto) 0.4 10^3/uL (0.8-4.8) L 07/12/24 22:34 [place] # (Auto) 0.3 10^3/uL (0.2-0.9) 07/12/24 22:34 Eos # (Auto) 0.0 10^3/uL (0.0-0.8) 07/12/24 22:34 Baso # (Auto) 0.0 10^3/uL (0.0-0.1) 07/12/24 22:34 Nucleated RBC % (auto) 0 % 07/12/24 22:34 Nucleated RBCs # 0.0 /100WBC 07/12/24 22:34 PT 27.30 SECONDS (12.1-14.9) H 07/12/24 22:34 INR 2.37 (0.8-1.2) H 07/12/24 22:34 APTT 30.2 SECONDS (23.9-36.7) 07/12/24 22:34 Sodium 139 mmol/L (136-145) 07/12/24 22:34 Potassium 4.3 mmol/L (3.5-5.1) 07/12/24 22:34 Chloride 102 mmol/L (98-107) 07/12/24 22:34 Carbon Dioxide 23 mmol/L (22-29) 07/12/24 22:34 Anion Gap 18.3 (5-19) 07/12/24 22:34 BUN 28 mg/dL (8-23) H 07/12/24 22:34 Creatinine 0.8 mg/dL (0.5-0.9) 07/12/24 22:34 GFR Calculation Not Reportable 07/12/24 22:34 Glucose 117 mg/dL (65-115) H 07/12/24 22:34 Calculated Osmolality 295 mOsm/kg (285-295) 07/12/24 22:34 Lactic Acid 1.2 mmol/L (0.5-2.2) 07/12/24 22:34 Calcium 9.7 mg/dL (8.5-10.5) 07/12/24 22:34 Total Bilirubin 0.4 mg/dL (0.15-1.2) 07/12/24 22:34 AST 63 U/L (0-32) H 07/12/24 22:34 ALT 42 U/L (0-33) H 07/12/24 22:34 Alkaline Phosphatase 69 U/L (35-105) 07/12/24 22:34 Troponin T Baseline 38 ng/L (0-10) H 07/12/24 22:34 Troponin T 120 Minute 53.68 ng/L (0-10) H 07/13/24 00:11 Delta Troponin T 15.68 ABS# (0-10) H* 07/13/24 00:11 NT-Pro-B Natriuret Pep 1461 pg/mL (0-450) H 07/12/24 22:34 Total Protein 7.0 g/dL (6.6-8.7) 07/12/24 22:34 Albumin 4.2 g/dL (3.5-5.2) 07/12/24 22:34 Globulin 2.8 g/dL (1.3-4.6) 07/12/24 22:34 Influenza A (PCR) Negative (Negative) 07/12/24 22:45 Influenza Type B (PCR) Negative (Negative) 07/12/24 22:45 RSV (PCR) Negative (Negative) 07/12/24 22:45 SARS-CoV-2 (PCR) Negative (Negative) 07/12/24 22:45 All radiology interpretation(s) finalized by discharge Discharge Plan Discharge Patient Disposition: Xfer Short-Term Hosp Clinical Impression: Acute exacerbation of CHF (congestive heart failure), Acute non-ST elevation myocardial infarction (NSTEMI), Immunotherapy, Breast cancer Condition: Stable Referrals: Yasmani Stout MD [Primary Care Provider, [facility] Print Language: Belarusian Coding Level of Care Code ED Manager Administrative Services for Se Howell
[2024-07-12 22:30] VITALS: BP 159/80; PULSE 88; O2SAT 98
[2024-07-12] MEDS: sodium chloride 0.9% 500 ML 999 ML IV (22:38)
[2024-07-12] MEDS: methylPREDNISolone sod succ 125 mg/2 mL INJ IV (22:38)
[2024-07-12 22:43] LABS: Basophils % 0.3 %; Eosinophils % 0.3 %; Hematocrit 36.3 % (36-47); Lymphocytes # 0.4 10^3/uL (0.8-4.8); Lymphocytes % 3.2 %; Mean Corpuscular HGB Conc 32.2 g/dL (30-55); Mean Corpuscular Hemoglobin 30.7 pg (27-33); Mean Corpuscular Volume 95.3 fl (85-98); Mean Platelet Volume 9.8 fL (7.4-10.4); Monocytes # 0.3 10^3/uL (0.2-0.9); Monocytes % 2.8 %; Neutrophils # 10.49 10^3/uL (1.8-7.7); Neutrophils % 93.1 %; Nucleated Red Blood Cells % 0 %; Platelet Count 200 10^3/cmm (157-399); Red Blood Count 3.81 10^6/uL (3.85-5.65); Red Cell Distribution Width 14.5 % (12.1-15.1); White Blood Count 11.26 10^3/uL (3.29-11.43)
[2024-07-12] MEDS: iohexol 350 mg/mL 500 mL Btl (per mL) IV (22:54)
[2024-07-12] MEDS: ipratropium-albuterol 3 mL Neb INHALATION (23:03)
[2024-07-12 23:04] VITALS: PULSE 84; RESP 18; O2SAT 100
[2024-07-12 23:04] LABS: INR 2.37 (0.8-1.2)
[2024-07-12 23:05] LABS: Partial Thromboplastin Time 30.2 SECONDS (23.9-36.7)
[2024-07-12 23:07] VITALS: BP 144/62; PULSE 75; O2SAT 98
[2024-07-12 23:08] VITALS: PULSE 85; RESP 18; O2SAT 99
[2024-07-12 23:14] LABS: Lactic Sepsis W/Reflex 1.2 mmol/L (0.5-2.2)
[2024-07-12 23:16] LABS: Troponin(5th) Baseline 38 ng/L (0-10)
[2024-07-12 23:23] LABS: Alanine Aminotransferase 42 U/L (0-33); Albumin Level 4.2 g/dL (3.5-5.2); Alkaline Phosphatase 69 U/L (35-105); Anion Gap 18.3 (5-19); Aspartate Amino Transferase 63 U/L (0-32); Blood Urea Nitrogen 28 mg/dL (8-23); Calcium 9.7 mg/dL (8.5-10.5); Carbon Dioxide 23 mmol/L (22-29); Chloride 102 mmol/L (98-107); Creatinine Clr Calc Pharmacy 50.6382; Globulin 2.8 g/dL (1.3-4.6); Glucose 117 mg/dL (65-115); NT Pro B Type Natriuretic Pept 1461 pg/mL (0-450); Osmolality Calculated 295 mOsm/kg (285-295); Potassium 4.3 mmol/L (3.5-5.1); Sodium 139 mmol/L (136-145); Total Bilirubin 0.4 mg/dL (0.15-1.2)
[2024-07-12 23:29] LABS: Influenza A NEGATIVE (Negative); Influenza B NEGATIVE (Negative); Respiratory Syncytial Virus Ce NEGATIVE (Negative); SARS-CoV-2 PCR NEGATIVE (Negative)
[2024-07-12 23:37] VITALS: BP 142/40; PULSE 76; RESP 26; O2SAT 95
[2024-07-13 00:31] VITALS: BP 134/45; PULSE 74; RESP 27; O2SAT 93
[2024-07-13 00:37] LABS: Troponin 5 2HR 53.68 ng/L (0-10)
[2024-07-13 00:50] LABS: Troponin 5 2HR Delta 15.68 ABS# (0-10)
[2024-07-13] MEDS: FUROsemide 10 mg/mL SDV 4mL 40 MG IVP (00:59)
[2024-07-13 01:03] VITALS: BP 139/55; PULSE 82; RESP 35; O2SAT 97
[2024-07-13] MEDS: heparin 5,000 unit/mL INJ 1 mL IVP (02:00)
[2024-07-13] MEDS: heparin drip 25,000 UNIT/500 ML PREMIX 20 UNIT IV (02:09)
[2024-07-13 02:30] VITALS: BP 125/53; PULSE 68; RESP 24; O2SAT 95
[2024-07-13 03:19] VITALS: BP 146/101; PULSE 87; RESP 14; O2SAT 99
[2024-07-13 04:00] VITALS: BP 128/62; PULSE 68; RESP 18; O2SAT 97
[2024-07-13 04:34] VITALS: BP 117/46; PULSE 70; O2SAT 95
== END 2024-07-13 04:37 | disposition short-term general hospital (02) ==
PROVIDERS: Emergency Provider Emergency Medicine; PCP Family Medicine
DX: I11.0 Hypertensive heart disease with heart failure (principal); I50.30 Unspecified diastolic (congestive) heart failure; I25.10 Atherosclerotic heart disease of native coronary artery without angina pectoris; I21.4 Non-ST elevation (NSTEMI) myocardial infarction; C50.912 Malignant neoplasm of unspecified site of left female breast; Z11.52 Encounter for screening for COVID-19; Z87.891 Personal history of nicotine dependence
CPT/HCPCS: 71275; 80053; 83605; 83880; 84484; 85025; 85610; 85730; 87040; 87150; 87205; 87637; 93005; 94640; 96374; 96375; 99285; J1644; J1938; J2919; J7040; J9999

== ENCOUNTER 2024-07-23 11:29 | Oncology outpatient (recurring) (ONCR) | payer MEDICARE, OTHER, SELFPAY ==
[2024-07-23 11:59] LABS: Basophils % 0.4 %; Eosinophils # 0.1 10^3/uL (0.0-0.8); Eosinophils % 0.9 %; Hematocrit 34.7 % (36-47); Lymphocytes # 1.7 10^3/uL (0.8-4.8); Lymphocytes % 19.6 %; Mean Corpuscular HGB Conc 32.3 g/dL (30-55); Mean Corpuscular Hemoglobin 30.6 pg (27-33); Mean Corpuscular Volume 94.8 fl (85-98); Monocytes # 0.9 10^3/uL (0.2-0.9); Monocytes % 10.3 %; Neutrophils # 5.81 10^3/uL (1.8-7.7); Neutrophils % 68.3 %; Nucleated Red Blood Cells % 0 %; Platelet Count 201 10^3/cmm (157-399); Red Blood Count 3.66 10^6/uL (3.85-5.65); Red Cell Distribution Width 14.2 % (12.1-15.1); White Blood Count 8.51 10^3/uL (3.29-11.43)
[2024-07-23 12:16] LABS: Alanine Aminotransferase 12 U/L (0-33); Albumin Level 4.1 g/dL (3.5-5.2); Alkaline Phosphatase 45 U/L (35-105); Anion Gap 15.9 (5-19); Aspartate Amino Transferase 13 U/L (0-32); Blood Urea Nitrogen 19 mg/dL (8-23); Calcium 9.3 mg/dL (8.5-10.5); Carbon Dioxide 25 mmol/L (22-29); Chloride 97 mmol/L (98-107); Globulin 2.6 g/dL (1.3-4.6); Glucose 106 mg/dL (65-115); Osmolality Calculated 281 mOsm/kg (285-295); Potassium 3.9 mmol/L (3.5-5.1); Sodium 134 mmol/L (136-145); Total Bilirubin 0.5 mg/dL (0.15-1.2); Total Protein 6.7 g/dL (6.6-8.7)
== END 2024-08-12 23:59 | disposition home or self-care (01) ==
PROVIDERS: PCP Family Medicine; Visit Provider Internal Medicine Medical Oncology
DX: C50.912 Malignant neoplasm of unspecified site of left female breast (principal)
CPT/HCPCS: 36415; 80053; 85025; 99214

== ENCOUNTER 2024-08-13 12:11 | Oncology outpatient (recurring) (ONCR) | payer MEDICARE, OTHER, SELFPAY ==
[2024-08-13 12:54] LABS: Hematocrit 36.4 % (36-47); Hemoglobin 11.50 g/dL (11.27-16.99); Mean Corpuscular HGB Conc 31.6 g/dL (30-55); Mean Corpuscular Hemoglobin 30.3 pg (27-33); Mean Corpuscular Volume 95.8 fl (85-98); Nucleated Red Blood Cells % 0 %; Platelet Count 217 10^3/cmm (157-399); Red Blood Count 3.80 10^6/uL (3.85-5.65); White Blood Count 9.01 10^3/uL (3.29-11.43)
[2024-08-13 13:09] LABS: Alanine Aminotransferase 13 U/L (0-33); Albumin Level 3.9 g/dL (3.5-5.2); Alkaline Phosphatase 57 U/L (35-105); Anion Gap 15.3 (5-19); Aspartate Amino Transferase 15 U/L (0-32); Blood Urea Nitrogen 23 mg/dL (8-23); Calcium 9.6 mg/dL (8.5-10.5); Carbon Dioxide 28 mmol/L (22-29); Chloride 99 mmol/L (98-107); Creatinine Clr Calc Pharmacy 41.8471; Globulin 3.4 g/dL (1.3-4.6); Glucose 116 mg/dL (65-115); Osmolality Calculated 291 mOsm/kg (285-295); Potassium 4.3 mmol/L (3.5-5.1); Sodium 138 mmol/L (136-145); Total Protein 7.3 g/dL (6.6-8.7)
--- NOTE | 2024-08-13 15:48 | N.ONRAD NP_ITS ---
Radiation Oncology New Patient Visit Patient: Sana Murrell MR#: [id number] : 1935> Age: 89> Sex: Female> Dictated by: Rick River DO/DELFINO/HEYDI Date of Service: 08/13/2024 Referring Physician(s) : MARY Diagnosis: C50.112 - malignant neoplasm of central portion of left female breast, Diagnosed 05/13/2024 (active). LEFT BREAST, CENTRAL, IDC-MD, 1.4CM, DCIS-HG, -CLSI, ER99/PR88/H2N+ (TRIPLE POSITIVE), SURG MARGINS > 1CM IDC/DCIS, 6X4.4X2.3CM SPECIMEN SIZE, ON ARIMIDEX, BEAST US NOTED ???LN+, NIPPLE RETRACTION X 2 YEARS, had 1 infusion of Herceptin and was hospitalized for 5 days STAGE: [id number] ICD-10: C50.112 Radiotherapy to date: Summary > No prior radiation therapy. Chief Complaint / History of Present Illness: I have breast cancer. This is an 89-year-old female who noted on self breast exam at the first of the year of mass below the left retracted nipple. Patient has had nipple retraction for some 2 years before this mammogram. BL MAMMOGRAM on 03/05/2024 showed a left breast mass at the 2 o'clock position it was a new irregularly spiculated high density mass in the subareolar area measuring 2.1 x 1.9 x 1.2 cm. There was also nipple retraction noted. BREAST US on 03/05/2024 showed an irregular mass with indistinct angular margins with hypoechoic shadowing. The mass measured 0.9 x 1 x 0.9 cm mass is subareolar and slightly to the left of midline. There was no left axilla abnormalities noted. BX on 03/25/2024 return IDC that was moderately differentiated, ER 99/GA 88/H2 N- and high-grade DCIS noted. Patient was not started on Arimidex. Patient underwent LUMPECTOMY on 05/31/2024. No lymph nodes were evaluated due to patient's anesthesia risk. This returned IDC-MD, 1.4 cm. Hg DCIS, both invasive and DCIS margins were greater than 1 cm. Specimen size measured 6 x 4.4 x 2.3 cm. HER2/nicky was reevaluated and was 3+. BREAST PROFILE noted menarche at age 14 first at age 17. Patient had 5 pregnancies and 6 live births-1 set of twins. Patient breast-fed all children for 1 year per child. Patient denies use of control pills and had a hysterectomy at age 27 due to fibroids. Patient has undergone 2 years of hormone replacement therapy. Patient has no Adventism descent and mother lived with ovarian cancer. Herceptin infusion on July 12 caused admission to the hospital for 5 days so she is not receiving that therapy anymore. Current Medications: - Last Reconciled 08/13/24 by Marci Barboaz MA acetaminophen (Tylenol Extra Strength) 500 mg PO BEDTIME anastrozole (Arimidex) 1 mg PO DAILY biotin 10,000 mcg PO QAM cholecalciferol (vitamin D3) (Vitamin D3) 2,000 units PO BID furosemide ALTERNATE FREQUENCY DAILY DIRECTED, TAKE 1 TABLET ONCE DAILY/1 TABLET TWO TIMES A DAY levothyroxine 75 mcg PO DAILY magnesium oxide 400 mg PO QAM metoprolol succinate ER 100 mg PO QAM ondansetron 4 mg PO Q8H PRN oxygen-air delivery systems As directed potassium chloride ER Alternate frequency -take 1 tab (20meq) po once a day one day and the next day take one tab (20meq) bid (take with lasix) prednisone 20 mg (4 x 5 mg) PO DAILY rosuvastatin mg PO spironolactone TAKE 1 TABLET EVERY MORNING trazodone TAKE 1 TABLET AT BEDTIME triamcinolone acetonide 0.5% 1 applic topical BID PRN warfarin 5 mg PO DAILY warfarin 1 mg PO DAILY Allergies: piroxicam (From [employer]) Allergy (Verified 08/13/24 12:40) ALGY-Hives Medical History: Low back pain with right-sided sciatica Peripheral neuropathy Fibromyalgia Bronchitis Seronegative rheumatoid arthritis of both hands Inflammatory arthritis High risk medication use Immunization counseling Osteoarthritis of both hands Encounter for screening for other viral diseases Leg edema Chronic diastolic heart failure Chronic diastolic heart failure secondary to coronary artery disease Atypical chest pain Atrial fibrillation Pulmonary embolism SOB (shortness of breath) Trigger middle finger of left hand Osteoarthritis of CMC joint of thumb Episodic atrial fibrillation Pulmonary embolism Essential (primary) hypertension Surgical History: Reviewed 08/13/24 @ 12:54 by Marci Barboza MA) Hip fracture, right Surgery at [facility] - 2023 History of hysterectomy Hx of cataract surgery Family History: Reviewed 08/13/24 @ 12:54 by Marci Barboza MA) Mother Myocardial infarct Cancer CAD (coronary artery disease) Father Heart disease CAD (coronary artery disease) Brother Cancer Family/Other Lung disease Denies family history of Diabetes Clotting disorder Dementia Chronic kidney disease (CKD) Suicide Anesthesia complication Bleeding disorder Stroke Social History: Smoking and tobacco/nicotine status: never used tobacco/nicotine Quit status (tobacco/nicotine): has quit using Year quit tobacco: 1979 Alcohol intake: never Substance/Drug Use: never Lives independently: Yes Household members: none Current occupational status: retired Do you think of yourself as: Straight/Heterosexual Current gender identity: Female Current Complaints / Review of Systems: . Vital Signs: Performed on 08/13/2024 1:31 PM BMI - 26.939 kg/m2 (high), Height - 67 in, Weight - 172 lbs, Temperature - 98.7 f, Pulse - 67 /min, Respiration - 17 /min, O2 Sat - 100 %, Pain - 0, Fatigue - 0 and BP - 137/ 59 mm(hg)(/low). Physical Exam: Alert and oriented and answers questions appropriately. Head is normocephalic without masses. Neck is supple thyroid midline. Lungs are clear to auscultation abdomen is soft nontender with no hepatosplenomegaly. Breasts are pendulous x 2. No apparent masses in either breast. Areola and nipple complex scarring measured 5 cm it is well-healed superiorly. Performance Status: KPS 90 Pathology: Primary, c50.112 - malignant neoplasm of central portion of left female breast, Diagnosed 05/13/2024 (active) . Lab: Imaging: See HPI Impression: C50.112 - malignant neoplasm of central portion of left female breast, Diagnosed 05/13/2024 (active). LEFT BREAST, CENTRAL, IDC-MD, 1.4CM, DCIS-HG, -CLSI, ER99/PR88/H2N+, SURG MARGINS > 1CM IDC/DCIS, 6X4.4X2.3CM SPECIMEN SIZE, ON ARIMIDEX, BEAST US NOTED ???LN+, NIPPLE RETRACTION X 2 YEARS. Unable to tolerate Herceptin infusion. STAGE: [id number] ICD-10: C50.112 Plan: Options were discussed with the patient and daughter. Patient on Arimidex for planned 5 years Patient has surgical margins greater than 1 cm Patient has a T1c lesion Would not recommend very strongly adjuvant XRT. Patient and family are going to discuss adjuvant radiation therapy and give us a call If she has XRT, I would not recommend coverage of the lymph nodes and would treat her to 4256 cGy in 16 fractions. Signed by: 08/13/2024 3:46:36 PM <<Signature on File>> Time spent with patient/DAUGHTER: 65 MINUTES CPT Code: CPT Code:
== END 2024-09-12 23:59 | disposition home or self-care (01) ==
PROVIDERS: PCP Family Medicine; Visit Provider Internal Medicine Medical Oncology
DX: C50.912 Malignant neoplasm of unspecified site of left female breast (principal); J81.1 Chronic pulmonary edema; R79.89 Other specified abnormal findings of blood chemistry; Z87.891 Personal history of nicotine dependence; Z98.890 Other specified postprocedural states; Z17.0 Estrogen receptor positive status [ER+]
CPT/HCPCS: 36415; 80053; 85025; 99214

== ENCOUNTER → 2024-08-26 09:28 | Outpatient (BNVA) | payer MEDICARE, OTHER, SELFPAY | PROVIDERS: PCP Family Medicine; Visit Provider Family Medicine | DX: I48.91 Unspecified atrial fibrillation (principal) | CPT/HCPCS: 85610 ==

== ENCOUNTER → 2024-09-03 09:10 | Outpatient (BNVA) | payer MEDICARE, OTHER, SELFPAY | PROVIDERS: PCP Family Medicine; Visit Provider Family Medicine | DX: I48.91 Unspecified atrial fibrillation (principal) | CPT/HCPCS: 85610 ==

== ENCOUNTER → 2024-09-17 15:47 | Outpatient (BNVA) | payer MEDICARE, OTHER, SELFPAY | PROVIDERS: PCP Family Medicine; Visit Provider Family Medicine | DX: I48.91 Unspecified atrial fibrillation (principal) | CPT/HCPCS: 85610 ==

== ENCOUNTER 2024-10-22 10:19 | Oncology outpatient (recurring) (ONCR) | payer MEDICARE, OTHER, SELFPAY ==
--- NOTE | 2024-10-15 11:04 | ONCRAD TMN_ITS ---
Radiation Oncology Weekly Treatment Management Patient: Handy Stephens)> MR#: [id number] : 1935> Attending Physician: Alec River Date of Service: 10/15/2024 Referring Physician(s) : Diagnosis: C50.112 - Malignant neoplasm of central portion of left female breast, Diagnosed 05/13/2024 (Active) Radiotherapy to date: Course: LEFT BREAST, Treatment Site: Lt Breast, Ref. ID: Breast_L, Energy: 15X/6X, Dose/Fx (cGy): 266, #Fx: / 16, Dose Correction (cGy): 0, Total Dose Delivered (cGy): 2,926, Start Date: 09/30/2024, Elapsed Days: 15 Reason for visit: The patient is being seen today as part of their regularly scheduled weekly on treatment visits to assess for acute toxicities from radiotherapy. Review of Systems: Patient voices no complaints. She continues using creams and has no significant skin erythema. Vital Signs: Performed on 10/15/2024 10:10 AM BMI - 27.221 kg/m2 (high), Height - 67 in, Weight - 173.8 lbs, Temperature - 96.4 f, Pulse - 62 /min, Respiration - 18 /min, O2 Sat - 98 %, Pain - 0, Fatigue - 0 and BP - 140/ 65 mm(hg). Physical Exam: AAOx3. SKIN INTACT. NO ERYTHEMA Imaging: Radiation therapy imaging related to accurate target localization (i.e. KV, MV and CBCT) was reviewed. Appropriate changes, if any, were made to ensure treatment accuracy. Plan: Continue XRT. Continue utilizing vitamin E cream Continue endocrine therapy. Signed by: Alec River 10/15/2024 11:02:37 AM
--- NOTE | 2024-10-22 12:49 | N.ONRD TS_ITS ---
Radiation Oncology Treatment Summary Patient: Sana Murrell (Vanita) MR#: [id number] : 1935 Age: 89 Sex: Female Dictated by: Dr. Saeg Cason Date of Service: 10/22/2024 Referring Physician(s) : Diagnosis: C50.112 - Malignant neoplasm of central portion of left female breast, Diagnosed 05/13/2024 (Active) Radiotherapy to Date: Course: LEFT BREAST, Treatment Site: Lt Breast, Ref. ID: Breast_L, Energy: 15X/6X, Dose/Fx (cGy): 266, #Fx: 16 / 16, Dose Correction (cGy): 0, Total Dose Delivered (cGy): 4,256, Start Date: 09/30/2024, End Date: 10/22/2024, Elapsed Days: 22 VITAL SIGNS: Performed on 10/22/2024 11:00 AM BMI - 27.315 kg/m2 (high), Height - 67 in, Weight - 174.4 lbs, Temperature - 97.3 f, Pulse - 87 /min, Respiration - 17 /min, O2 Sat - 98 %, Pain - 0, Fatigue - 0 and BP - 152/ 52 mm(hg)(high/low). Modest left breast erythema. Clinical Summary: The patient tolerated RT well. Plan: End of treatment today. Continue on the above medication until the skin reaction resolves. Follow up in one month. Signed by: Dr. Sage Cason>10/22/2024 12:48:23 PM <<Signature on File>>
== END 2024-11-12 23:59 | disposition home or self-care (01) ==
PROVIDERS: PCP Family Medicine; Visit Provider Radiology Radiation Oncology
DX: C50.912 Malignant neoplasm of unspecified site of left female breast (principal); J81.1 Chronic pulmonary edema; R79.89 Other specified abnormal findings of blood chemistry; Z87.891 Personal history of nicotine dependence; Z98.890 Other specified postprocedural states; Z17.0 Estrogen receptor positive status [ER+]; Z79.899 Other long term (current) drug therapy
CPT/HCPCS: 77336; 77387; 77412; 99024

== ENCOUNTER 2024-11-04 15:57 | Emergency (ER) | payer MEDICARE, OTHER, SELFPAY ==
--- OUTSIDE RECORDS SUMMARY | 2024-11-04 16:03 | XMS_ITS | Encounter Summary ---
Author Organization [facility] Address [address] [place] [address] Care Team Providers Care Youth Director Name Role Phone Yasmani Stout MD Primary Care Provider Encounter Details Date Type Department Care Team (Late st Contact Info) Description 01/16/2004 Outpatient Historical Cardio Pulmonary Rehab [address] [place] [address] Naun Weiss MD [address] [facility] [address] [place] [address] RESPIRATORY ABNORM NEC (Primary Dx) Social History Tobacco Use Types Packs/Day Years Used Date Smoking Tobacco: Never Assessed Comments Unknown Sex and Gender Information Value Date Recorded Sex Assigned at Not on file 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
--- OUTSIDE RECORDS SUMMARY | 2024-11-04 16:03 | XMS_ITS | Encounter Summary ---
Author Organization [facility] Address [address] [place] [address] Care Team Providers Care House Painter Name Role Phone Yasmani Stout MD Primary Care Provider [phone] Encounter Details Date Type Department Care Team (Latest Contact Info) Description 01/05/2004 Outpatient Historical [facility] [place] [address] [place] [address] Naun Weiss MD [address] [facility] [address] [place] [address] HYPERTENSION NOS (Primary Dx); CHRONIC AIRWAY OBSTRUCTION NEC (CMS/HCC); CHEST PAIN NEC; PERIPH VASCULAR DIS NOS Social History Tobacco Use Types Packs/Day Years Used Date Smoking Tobacco: Never Assessed Comments Unknown Sex and Gender Information Value Date Recorded Sex Assigned at Not on file 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 Gender Identity Not on file Sexual Orientation Not on file documented as of this encounter Plan of Treatment Not on file documented as of this encounter Visit Diagnoses Diagnosis Unspecified essential hypertension- Primary Chronic airway obstruction, not elsewhere classified (CMS/HCC) Chronic airway obstruction, not elsewhere classified Other chest pain Peripheral vascular disease, unspecified documented in this encounter Care Teams House Painter Relationship Specialty Start Date End Date Yasmani Stout MD [address] [place] [phone] PCP - General Family Practice 05/15/17 documented as of this encounter
--- OUTSIDE RECORDS SUMMARY | 2024-11-04 16:03 | XMS_ITS | Encounter Summary ---
Author Organization [facility] Address [address] [place] [address] Care Team Providers Care Manager Applied Name Role Phone Yasmani Stout MD Primary Care Provider Encounter Details Date Type Department Care Team (Latest Contact Info) Description 01/16/2004 Outpatient Historical [facility] Cardiology Ancillary [facility] [address] [place] [address] Abhi Conner MD NO ADDRESS ON FILE PRECORDIAL PAIN (Primary Dx) Social History Tobacco Use Types Packs/Day Years Used Date Smoking Tobacco: Never Assessed Comments Unknown Sex and Gender Information Value Date Recorded Sex Assigned at Not on file 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
--- OUTSIDE RECORDS SUMMARY | 2024-11-04 16:03 | XMS_ITS | Clinical Summary ---
Author Organization [facility] Address [address] [place] [address] Care Team Providers Care Field Sales Trainer Name Role Phone Yasmani Stout MD Primary Care Provider Allergies Active Allergy Reactions Criticality Noted Date Comments Piroxicam Hives High 10/22/2015 Prednisone Dizziness High 10/22/2015 Medications metoprolol tartrate (LOPRESSOR) 50 mg tablet Take 50 mg by mouth 2 times daily. Active levothyroxine 75 mcg tablet Take 75 mcg by mouth daily absorption plant operator helper. Active triamcinolone acetonide (KENALOG) 0.1 % Ointment Apply to affected area 2 times daily. Active fluocinonide (LIDEX) 0.05 % Ointment Apply to affected area 2 times daily. Active traZODone (DESYREL) 100 mg tablet Take 100 mg by mouth daily at bedtime. Active fluticasone-rogelio meterol (ADVAIR DISKUS) 250-50 mcg/dose disk inhaler Take 1 Puff by inhalation 2 times daily. Active calcium citrate-vitamin D3 (CITRACAL WITH VIT D) 200 mg calcium -250 unit Tablet Take by mouth. Act kavitha cetirizine (ZyrTEC) 10 mg tablet Take 10 mg by mouth daily. Active lysine 1,000 mg Tablet Take 1,000 mg by mouth. Active ipratropium bromide (ATROVENT) 0.06 % [place], Non-Aerosol Administer 1 [place] in each nostril every 6 hours as needed (for a drippy nose). 15 mL 5 6 Active ondansetron (ZOFRAN ODT) 4 mg Tablet, Rapid Dissolve Take 1 Tablet (4 mg) by mouth every 8 hours as needed for Nausea/Emesis Dissolve tablet on top of tongue, then swallow with saliva.. 15 Tablet 8 Active salmeterol (SEREVENT DISKUS) 50 mcg/dose Disk with Device Take 1 Puff by inhalation 2 times daily. 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 Gender Identity Not on file Sexual Orientation Not on file Last Filed Vital Signs Vital Sign Reading Time Taken Comments Blood Pressure 169/66 05/15/2017 6:30 PM CDT Pulse 73 05/15/2017 7:00 PM CDT Temperature 36.9 C (98.5 F) 05/15/2017 3:35 PM CDT Respiratory Rate 17 05/15/2017 2:22 PM CDT Oxygen Saturation 97% 05/15/2017 7:00 PM CDT Inhaled Oxygen Concentration - - Weight 81.6 kg (180 lb) 05/15/2017 3:35 PM CDT Height 170.2 cm (5' 7 ) 05/15/2017 3:35 PM CDT Body Mass Index 28.19 05/15/2017 3:35 PM CDT Plan of Treatment Health Maintenance Due Date Last Done Comments DTAP/TDAP/TD VACCINES (1 - Tdap) 02[birth year]05/1954 PNEUMOCOCCAL VACCINE 50+ YEARS (1 of 1 - PCV) 02/05/19 86 ZOSTER VACCINE (1 of 2) 02/05/1986 OSTEOPOROSIS SCREENING 02/05/2001 RSV VACCINE (60+ or ) (1 - 1-dose 75+ series) 02/05/2011 INFLUENZA VACCINE (#1) 2024 Insurance MEDICARE PART A AND B [facility] Care Teams Field Sales Trainer Relationship Specialty Start [place] [address] [place] [phone] PCP - General Family Practice 05/15/17
--- OUTSIDE RECORDS SUMMARY | 2024-11-04 16:03 | XMS_ITS | Encounter Summary ---
Author Organization [facility] Address [address] [place] [address] Care Team Providers Care School Community Relations Coordinator Name Role Phone Yasmani Stout MD Primary Care Provider [phone] Encounter Details Date Type Department Care Team (Latest Contact Info) Description 07/11/2006 Outpatient Historical [facility] Orthopedics- 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 Gender Identity Not on file Sexual Orientation Not on file documented as of this encounter Plan of Treatment Not on file documented as of this encounter Visit Diagnoses Diagnosis Enthesopathy of hip- Primary Enthesopathy of hip region Pain in joint, pelvic region and thigh Pain in joint, lower leg Other and unspecified derangement of medial meniscus documented in this encounter Care Teams School Community Relations Coordinator Relationship Specialty Start Date End Date Yasmani Stout MD [address] [place] [phone] PCP - General Family Practice 05/15/17 documented as of this encounter
--- OUTSIDE RECORDS SUMMARY | 2024-11-04 16:03 | XMS_ITS ---
Author Organization [facility] Address [address] [place]: Epic Prelude ADT [place]SEI [place]IS [address] Care Team Providers Care Five Roll Refiner Batch Mixer Name Role Phone Yasmani Stout MD Primary Care Provider [phone] Active Problems Problem Noted Date Diagnosed Date High risk medication use 07/15/2024 Acute on chronic heart failu re with preserved ejection fraction 07/15/2024 COPD exacerbation 07/15/2024 Hypoxia 07/15/2024 Atrial fibrillation 07/15/2024 Lung nodules 07/13/2024 Elevated troponin 07/13/2024 Fever 07/13/2024 Dyspnea 07/13/2024 Chronic anticoagulation 07/13/2024 Tick bite 07/13/2024 Age-related osteoporosis wit hout current pathological fracture 06/27/2024 Primary malignant neoplasm of left breast 2024 Lt breast Ca - s/p lunp (05/31/24) 04/04/2024 Cancer Staging:Clinical:Stage IB(cT2, cN0, cM0, G2, ER+, WV+, HER2-) - Unsigned Breast cancer Current Treatment and Therapy Plans No current plan information found. Other Current Plans OP ONC DENOSUMAB (PROLIA) FOR OSTEOPENIA WITH ANTI-HORMONE THERAPY - EVERY 6 MONTHS* Plan Start Date:06/27/2024 Plan Provider:Joyce Perales MD Linked Problems Age-related osteoporosis wit hout current pathological fracture Treatment Medications No medications scheduled. Past Treatment and Therapy Plans ONCOLOGY TREATMENT Plan Name Start Date Discontinue Date Treatment Medications Discontinue Reason Plan Provider Cycles OP ONC BREAST_T RASTUZUM AB_EVERY 21 DAYS 07/12/2024 09/28/2024 trastuzumab or biosimilartrast uzumab-fady (ROSARIO) IVPB Patient Preference Joyce Perales MD 1 of 12 cycles started Lifetime Dose Tracking * Chemical Lifetime Dose Automatic Entry Manual Entr y Effective Dose 16.9 mSv 0 mSv 16.9 mSv Total DLP 1,019 DLP 0 DLP 1,019 DLP CTDIvol Max 14.8 mGy 0 mGy 14.8 mGy CTDIvol Min 13.5 mGy 0 mGy 13.5 mGy
--- OUTSIDE RECORDS SUMMARY | 2024-11-04 16:03 | XMS_ITS | Clinical Summary ---
Author Organization [facility] Address [address] [place]: Epic Prelude ADT [place] [address] Care Team Providers Care Supervisor Cd Area Name Role Phone Yasmani Stout MD Primary Care Provider [phone] Allergies Active Allergy Reactions Criticality Noted Date Comments Piroxicam Hives High 10/22/2015 Medications salmeteroL (SEREVENT DISKUS) 50 mcg/dose Disk with Device Take 1 Puff by inhalation 2 times daily. 1 Each 1 8 Active ipratropium bromide (ATROVENT) 42 mcg (0.06 %) [place], Non-Aerosol Administer 1 [place] in each nostril every 6 hours as needed (for a drippy nose). 15 mL 5 6 Active calcium citrate-vitamin D3 (CITRACAL WITH VIT D) 200 mg-6.25 mcg (250 unit) Tablet Take by mouth. 6 Active fluticasone propion-salmete roL (ADVAIR DISKUS,WIXELA INHUB) 250-50 mcg/dose disk inhaler Take 1 Puff by inhalation 2 times daily. 6 Active lysine 1,000 mg Tablet Take 1,000 mg by mouth. 6 Active traZODone (DESYREL) 100 mg tablet Take 100 mg by mouth daily at bedtime. 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 6 Active fluocinonide (LIDEX) 0.05 % Ointment Apply to affected area 2 times daily. Active cetirizine (ZyrTEC) 10 mg tablet Take 10 mg by mouth daily. Active triamcinolone acetonide (KENALOG) 0.1 % Ointment Apply to affected area 2 times daily. 6 Active predniSONE (DELTASONE) 5 mg tablet Take 5 mg by mouth daily with breakfast. 5 Active spironolactone (ALDACTONE) 25 mg tablet Take 25 mg by mouth daily. 5 Active warfarin (COUMADIN) 1 mg tablet Take 6 mg by mouth daily. 5 Active potassium CHLORIDE (K-DUR,KLOR-CON M20) 20 mEq Extended Release tablet Take 20 mEq by mouth daily. Active furosemide (LASIX) 80 mg tablet Take 80 mg by mouth daily. 5 Active anastrozole (ARIMIDEX) 1 mg tablet Take 1 mg by mouth daily. 5 Active warfarin (COUMADIN) 5 mg tablet Take 6 mg by mouth daily. 5 Active alendronate (FOSAMAX) 70 mg tablet Take 70 mg by mouth every 7 days. 5 Active MAGNESIUM OXIDE ORAL Take by mouth daily. Active metoprolol succinate (TOPROL XL) 100 mg Extended Release 24 hour tablet Take 100 mg by mouth daily. 5 Active enoxaparin (LOVENOX) 80 mg/0.8 mL injection Inject by subcutaneous injection. 5 Active CHOLECALCIFEROL , VITAMIN D3, ORAL Take by mouth daily. Active ondansetron (ZOFRAN ODT) 4 mg Tablet, Rapid Dissolve Take 1 Tablet (4 mg) by mouth every 8 hours as needed for Nausea/Emesis. Dissolve tablet on top of tongue, then swallow with saliva. 30 Tablet 1 5 Active acetaminophen (TYLENOL) 325 mg tablet Take 650 mg by mouth. Active Biotin 1 mg Tablet Take by mouth. Activ e rosuvastatin (CRESTOR) 20 mg tablet Take 1 Tablet (20 mg) by mouth daily at bedtime. 30 Tablet 1 07/16/2024 3:52 PM CDT Active aspirin (ECOTRIN EC) 81 mg Tablet, Delayed Release (E.C.) Take 1 Tablet (81 mg) by mouth daily. 30 Tablet 1 07/16/2024 3:52 PM CDT 5 Active Active Problems Problem Noted Date Diagnosed Date [...] Cancer Staging:Clinical:Stage IB(cT2, cN0, cM0, G2, ER+, [place]+, HER2-) - Unsigned Breast cancer Encounters Date Type Department Care Team Description 10/15/2024 External Device Data STL ABSTRACTION Provider, Abstract 09/28/2024 Orders Only [facility] [place] [address] [address] Maya Muse, OMAR 08/28/2024 External Device Data STL ABSTRACTION Provider, Abstract 08/27/2024 External Device Data STL ABSTRACTION Provider, Abstract 08/16/2024 External Device Data STL ABSTRACTION Provider, Abstract 08/15/2024 Abstract [facility] [place] [address] [phone] Provider, Abstract 08/15/2024 External Device Data STL ABSTRACTION Provider, Abstract 08/14/2024 External Device Data STL ABSTRACTION Provider, Abstract 08/13/2024 External Device Data STL ABSTRACTION Provider, Abstract 08/13/2024 External Device Data STL ABSTRACTION Provider, Abstract 08/13/2024 External Device Data STL ABSTRACTION Provider, Abstract 08/12/2024 External Device Data STL ABSTRACTION Provider, Abstract 08/11/2024 External Device Data STL ABSTRACTION Provider, Abstract 08/10/2024 External Device Data STL ABSTRACTION Provider, Abstract 08/09/2024 External Device Data STL ABSTRACTION Provider, Abstract 08/08/2024 External Device Data STL ABSTRACTION Provider, Abstract 08/07/2024 External Device Data STL ABSTRACTION Provider, Abstract 08/06/2024 External Device Data STL ABSTRACTION Provider, Abstract 08/05/2024 External Device Data STL ABSTRACTION Provider, Abstract 08/04/2024 External Device Data STL ABSTRACTION Provider, Abstract from Last 3 Months Family History Medical History Relation Name Comments Cancer - Other Brother 1 unknown cance r Cancer - Other Brother 2 unknown cance r Breast Cancer Maternal Cousin 1 Breast Cancer Maternal Cousin 2 Uterine or Endometrial Cance r, Not Including Cervical Mother Melanoma Sister Relation Name Status Comments Brother 1 Brother 2 Alive Maternal Cousin 1 Maternal Cousin 2 Mother Sister Social History Tobacco Use Types Packs/Day Years Used Date Smoking Tobacco: Former Cigarettes Smokeless Tobacco: Never Tobacco Cessation:Counseling Given: Not Answered Alcohol Use Standard Drinks/Week Comments No 0 (1 standard drink = 0.6 oz pur e alcohol) Feeling Safe Answer Date Recorded Are you in a relationship wi th someone who hurts you emotionally and/or physically? 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 Gender Identity Not on file Sexual Orientation Not on file Last Filed Vital Signs Vital Sign Reading Time Taken Comments Blood Pressure 145/57 07/16/2024 11:53 AM CDT Pulse 80 07/16/2024 11:53 AM CDT Temperature 36.3 C (97.3 F) 07/16/2024 11:53 AM CDT Respiratory Rate 18 07/16/2024 11:5 3 AM CDT Oxygen Saturation 96% 07/16/2024 11: 53 AM CDT Inhaled Oxygen Concentration - - Weight 81.5 kg (179 lb 10.8 oz) 07/16/2024 4:38 AM CDT Height 170.2 cm (5' 7 ) 07/16/2024 4:38 AM CDT Body Mass Index 28.14 07/16/2024 4:38 AM CDT Plan of Treatment Upcoming Encounters Date Type Department Care Team (Late st Contact Info) Description 11/19/2024 1:45 PM CDT Office Visit [facility] Breast Surgery [address] [place] [address] Yasmani Owens MD [address] [place] [address] Health Maintenance Due Date Last Done Comments DTAP/TDAP/TD VACCINES (1 - Tdap) 02[birth year]05/1954 PNEUMOCOCCAL VACCINE 50+ YEA RS (1 of 2 - PCV) 02/05/1955 ZOSTER VACCINE (1 of 2) 02/05/1986 RSV VACCINE (60+ or ) (1 - 1-dose 75+ series) 02/05/2011 INFLUENZA VACCINE (#1) 2024 COVID-19 Vaccine (6 - 2024-2 6 season) 2024 11/30/2022, 12/08/2021, 01/22/2021, Additional history exists OSTEOPOROSIS SCREENING 06/26/2029 06/26/2024 Medical Devices Implanted Type Area Architectural Manager Device Identifier Shelf Expiration Date Model / Serial / Lot Clip Ligating Horizon Med Ti [id number] - Csc - [id number] Implanted:Qty: 1 on 05/31/2024 by Yasmani Owens MD at [facility] Clip Left: Breast TELEFLEX- WECK CLOSURE SYS [id number] 01/27/2029 [id number] / / [id number] Procedures Procedure Name Priority Date/Time Associated Diagnosis Comments XR DEXA BONE DENSITY AXIAL 1 OR MORE SITES Routine 06/26/2024 10:07 AM CDT Primary malignant neoplasm of left breast (CMS/HCC) Aromatase inhibitor use from Last 3 Months or Most Recently Relevant to Health Maintenance Results * (ABNORMAL) XR DEXA BONE DENSITY AXIAL 1 OR MORE SITES (06/26/2024 10:07 AM CDT) [facility] Signature T-SCORE HIP (LEFT) -2.10(A) -1.0 - 1.0 INTERFACE SYSTEM T-SCORE SPINE -0.80 -1.0 - 1.0 INTER FACE SYSTEM Anatomical Region Laterality Modality Digital Radiogra phy, Mammography 06/26/2024 10:0 7 AM CDT Impressions 06/26/2024 10:14 AM CDT IMPRESSION: Osteoporosis NOF guidelines recommend consideration of FDA-approved medical therapies in patients with FRAX determined 10-year probabilities of hip/major osteoporosis-related fractures equal or greater than 3%/20% respectively. Consider assessing fracture risk using the FRAX analysis tool for guidance of clinical management available online at www.shef.ac.uk/FRAX/. Enter TellFi for Select DXA and the Femoral Neck BMD value. Narrative 06/26/2024 10:14 AM CDT DEXA Evaluation of the Lumbar Spine and Left Proximal Femur Reason for Consultation: Osteoporosis screening.Evaluation of bone mineral density. The following absorptiometry data were obtained. The quality of this examination is acceptable with regards to count density, processed images, data display and lack of important artifacts (including but not limited to motion and attenuation artifacts). Comparison: None L1-L4 BMD (g/cm2): 0.957 Adult T-score: -0.8 Left Femoral Neck BMD (g/cm2): 0.574 Adult T-score: -2.5 Left Total Hip BMD (g/cm2): 0.688 Adult T-score: -2.1 N.B. Changes in density of <=0.05 g/cm2 are not statistically significant. Definitions: T-score > -0.99 = Normal T-score -1.00 to -1.49 = mild osteopenia T-score -1.50 to -1.99 = moderate osteopenia T-score -2.00 to -2.49 = severe osteopenia T-score < -2.50 = osteoporosis RECOMMENDATIONS: Normal: Low risk for fracture - f/u in 2 years Mild/Mod osteopenia: Moderate risk for fracture - f/u in 1 year Severe osteopenia: Moderate/high risk for fracture - f/u in 1 year Osteoporosis: High risk for fracture - f/u in 1 year Procedure Note Jaskaran Day MD - 06/26/2024 DEXA Evaluation of the Lumbar Spine and Left Proximal Femur Reason for Consultation: Osteoporosis screening.Evaluation of bone mineral density. The following absorptiometry data were obtained. The quality of this examination is acceptable with regards to count density, processed images, data display and lack of important artifacts (including but not limited to motion and attenuation artifacts). Comparison: None L1-L4 BMD (g/cm2): 0.957 Adult T-score: -0.8 Left Femoral Neck BMD (g/cm2): 0.574 Adult T-score: -2.5 Left Total Hip BMD (g/cm2): 0.688 Adult T-score: -2.1 N.B. Changes in density of <=0.05 g/cm2 are not statistically significant. Definitions: T-score > -0.99 = Normal T-score -1.00 to -1.49 = mild osteopenia T-score -1.50 to -1.99 = moderate osteopenia T-score -2.00 to -2.49 = severe osteopenia T-score < -2.50 = osteoporosis RECOMMENDATIONS: Normal: Low risk for fracture - f/u in 2 years Mild/Mod osteopenia: Moderate risk for fracture - f/u in 1 year Severe osteopenia: Moderate/high risk for fracture - f/u in 1 year Osteoporosis: High risk for fracture - f/u in 1 year IMPRESSION: Osteoporosis NOF guidelines recommend consideration of FDA-approved medical therapies in patients with FRAX determined 10-year probabilities of hip/major osteoporosis-related fractures equal or greater than 3%/20% respectively. Consider assessing fracture risk using the FRAX analysis tool for guidance of clinical management available online at www.shef.ac.uk/FRAX/. Enter TellFi for Select DXA and the Femoral Neck BMD value. Joyce Perales MD DIAGNOSTIC IMAGING ORDERABLES Fi nal Result from Last 3 Months or Most Recently Relevant to Health Maintenance Insurance MEDICARE PART A AND B [facility] [employer] Medicare Part D Advance Directives For more information, please contact: [phone] * Full Code (Latest Code Status on File) Date Activated Date Inactivated Comments 07/13/2024 7:18 AM 07/16/2024 5:55 PM Care Teams Supervisor Cd Area Relationship Specialty Start [place] [address] [place] [phone] PCP - General Family Practice 05/15/17
[2024-11-04 16:11] VITALS: BP 144/64; PULSE 77; RESP 16; TEMP 36.9; O2SAT 96
== END 2024-11-04 18:50 | disposition left against medical advice (07) ==
PROVIDERS: Emergency Provider Family Medicine; PCP Family Medicine
DX: Z53.21 Procedure and treatment not carried out due to patient leaving prior to being seen by health care provider (principal)
CPT/HCPCS: 80053; 81000; 85025; 85610; 86140; 87086

== ENCOUNTER → 2024-11-12 10:21 | Outpatient (BNVA) | payer MEDICARE, OTHER, SELFPAY | PROVIDERS: PCP Family Medicine; Visit Provider Family Medicine | DX: Z79.01 Long term (current) use of anticoagulants (principal) | CPT/HCPCS: 85610 ==

== ENCOUNTER 2024-12-31 11:41 | Oncology outpatient (recurring) (ONCR) | payer MEDICARE, OTHER, SELFPAY ==
[2024-12-31 12:05] LABS: Hematocrit 37.1 % (36-47); Hemoglobin 12.20 g/dL (11.27-16.99); Mean Corpuscular HGB Conc 32.9 g/dL (30-55); Mean Corpuscular Hemoglobin 30.7 pg (27-33); Mean Corpuscular Volume 93.2 fl (85-98); Nucleated Red Blood Cells % 0 %; Platelet Count 277 10^3/cmm (157-399); Red Blood Count 3.98 10^6/uL (3.85-5.65); White Blood Count 10.19 10^3/uL (3.29-11.43)
[2024-12-31 12:38] LABS: Alanine Aminotransferase 11 U/L (0-33); Albumin Level 4.2 g/dL (3.5-5.2); Alkaline Phosphatase 60 U/L (35-105); Anion Gap 13.7 (5-19); Aspartate Amino Transferase 17 U/L (0-32); Blood Urea Nitrogen 22 mg/dL (8-23); CA 15-3 23.1 U/mL (0-25); Calcium 9.8 mg/dL (8.5-10.5); Carbon Dioxide 28 mmol/L (22-29); Chloride 100 mmol/L (98-107); Globulin 3.6 g/dL (1.3-4.6); Glucose 110 mg/dL (65-115); Osmolality Calculated 288 mOsm/kg (285-295); Potassium 4.7 mmol/L (3.5-5.1); Sodium 137 mmol/L (136-145); Total Protein 7.8 g/dL (6.6-8.7)
--- NOTE | 2024-12-31 13:33 | ONCRAD EPV_ITS ---
Radiation Oncology Established Patient Visit Patient: Sana Murrell [id number] : 1935 Age: 89 Sex: Female Dictated by: Alec River Date of Service: 12/31/2024 Referring Physician(s) : Dr. 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 ID: Breast_L, Energy: 15X/6X, Dose/Fx (cGy): 266, #Fx: , Dose Correction (cGy): 0, Total Dose Delivered (cGy): 4,256, Start Date: 09/30/2024, End Date: 10/22/2024, Elapsed Days: 22 Current History: This is a pleasant 89-year-old female returning 1 month after completing XRT to the LEFT BREAST. She continues on Arimidex and voices no complaints. Current Medications: acetaminophen (Tylenol Extra Strength) 500 mg PO BEDTIME PRN anastrozole (Arimidex) 1 mg PO DAILY biotin 10,000 mcg PO QAM cholecalciferol (vitamin D3) (Vitamin D3) 2,000 units PO BID ciprofloxacin HCl 500 mg PO BID 7 days furosemide 80 mg PO DAILY levothyroxine 75 mcg PO DAILY magnesium oxide 400 mg PO QAM metoprolol succinate ER 100 mg PO QAM [Oxygen via nc at 3L As directed] oxygen-air delivery systems As directed potassium chloride ER 20 mEq PO DAILY prednisone 5 mg PO DAILY spironolactone TAKE 1 TABLET EVERY MORNING trazodone TAKE 1 TABLET AT BEDTIME triamcinolone acetonide 0.1% 1 applic topical BID triamcinolone acetonide 0.5% 1 applic topical BID warfarin 5 mg PO DAILY warfarin 1 mg PO DAILY Allergies: piroxicam (From Feldene) Allergy (Verified 12/31/24 12:08) ALGY-Hives Current Complaints / Review of Systems: . Vital Signs: Performed on 12/31/2024 12:54 PM BMI - 26.469 kg/m2 (high), Height - 67 in, Weight - 169 lbs, Temperature - 98.2 f, Pulse - 67 /min, Respiration - 16 /min, O2 Sat - 95 % (low), Pain - 7, Fatigue - 0 and BP - 129/ 67 mm(hg). Physical Exam: General: Alert and oriented x 3. No acute distress. HEENT: Normocephalic, atraumatic. Extraocular Movements Intact: Pupils Equal, Round, Reactive to Light and Accommodation: Sclerae anicteric. Oral cavity is clear without lesions, masses or ulcers. NECK: Supple without supraclavicular or jugular lymphadenopathy. LUNGS: Clear to auscultation bilaterally without rales, rhonchi or wheeze. HEART: Regular rate and rhythm, normal S1 and S2 without murmur, gallop or rub. BREAST: BL pendulous breast with no apparent masses. Left breast is well-healed and no nodularity. MUSCULOSKELETAL: No tenderness or percussion pain over the axial skeleton, scapulae or pelvis. ABDOMEN: Soft, nontender, nondistended without masses or organomegaly. Bowell sounds are present. EXTREMITIES: No peripheral edema is identified. Limited motor and sensory examination are grossly intact and symmetric bilaterally. NEUROLOGIC: Cranial nerves II ???XII are grossly intact. Normal sensation, strength 5/5 in all extremities, normal gait, no ataxia. Performance Status: KPS 80 Lab: None pending. Pathology: Primary, c50.112 - malignant neoplasm of central portion of left female breast, Diagnosed 05/13/2024 (active) . Imaging: See HPI Impression: LEFT BREAST PLAN: RTC in 3 months or sooner if need be. Continue follow-up with [place]. Continue Arimidex. Signed by: 12/31/2024 1:32:04 PM <<Signature on File>> Time spent with patient: Global fee period. CPT Code: CPT Code:
== END 2025-01-12 23:59 | disposition home or self-care (01) ==
PROVIDERS: Internal Medicine Medical Oncology; PCP Family Medicine; Visit Provider Nurse Practitioner
DX: Z08 Encounter for follow-up examination after completed treatment for malignant neoplasm (principal); Z85.3 Personal history of malignant neoplasm of breast; Z92.3 Personal history of irradiation; Z87.891 Personal history of nicotine dependence; Z79.811 Long term (current) use of aromatase inhibitors
CPT/HCPCS: 36415; 80053; 85025; 86300; 99214

== ENCOUNTER → 2025-01-16 13:54 | Outpatient (BNVA) | payer MEDICARE, OTHER, SELFPAY | PROVIDERS: PCP Family Medicine; Visit Provider Family Medicine | DX: R06.02 Shortness of breath (principal) | CPT/HCPCS: 85610 ==